=== PATIENT | female | born 1990 | race African-American/Black ===

== ENCOUNTER → 2016-12-26 | Outpatient (CLI) | payer BC, OTHER ==
--- NOTE | 2016-12-26 12:58 | US ---
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 Lump near umbilicus x 6 years. 6 years ago Findings: Complex cystic area mid abdominal wall near umbilicus = 2.5 x 1.2 x 2.2cm. No change or br eak in the abdominal wall with valsalva . Recommend CT for further evaluation. IMPRESSION: Nonspecific complex fluid near the umbilicus without definite hernia seen at this time. Consider contrast enhanced CT for further evaluation.
== END | disposition home or self-care (01) ==
LOC: RADUSWWP 12:28
PROVIDERS: ATTEND Family Medicine
DX: K46.9 Unspecified abdominal hernia without obstruction or gangrene (principal)
CPT/HCPCS: 76705

== ENCOUNTER 2018-07-30 21:33 | Emergency (ER) | payer BC, OTHER ==
[2018-07-30 22:08] LABS: Appearance,Urine Cloudy (Clear); Bilirubin,Urine Negative (Negative); Blood,Urine Negative (Negative); Color,Urine Yellow; Glucose,Urine (UA) Negative (Negative); Ketones,Urine Negative (Negative); Leukocyte Esterase,Urine Large (Negative); Mucus,Urine Many /hpf; Nitrite,Urine Negative (Negative); Protein,Urine 1+ (Negative); RBC,Urine 36 /hpf (0-5); Specific Gravity,Urine 1.025 (1.001-1.035); Squamous Epithelial Cell,Urine 16 /hpf (0-4); WBC,Urine 110 /hpf (0-5)
[2018-07-30] MEDS ORDERED: SULFAMETH-TMP DS STARTER PACK 2 TAB BTL PO STA (22:56)
--- NOTE | 2018-07-30 23:02 | ED ---
Female Urogenital HPI - General Chief complaint: Urogenital Stated complaint: Female Time Seen by Provider: 07/30/18 21:42 Source: patient Mode of arrival: ambulatory Limitations: no limitations - History of Present Illness Initial comments: 28-year-old female patient presents to the emergency department today for evaluation of vulvar itching. Patient states this has been going on for the last several days. Patient denies any lesions or wounds to the genitalia. Denies any abnormal vaginal discharge. She denies any hematuria, dysuria, urinary urgency. States she is having some urinary frequency. Denies any chance of . Denies any chance of STDs, states she is in a monogamous relationship. Denies any history of similar symptoms. Denies any recent antibiotic use. Patient denies any recent rash, fever, chills, shortness breath , chest pain, abdominal pain, nausea, vomiting, diarrhea, constipation, back pain, numbness, tingling, dizziness, weakness, headache, visual changes, or any other complaints. Last Menstrual Period: 07/02/18 - Related Data Previous Rx's Medication Instructions Recorded Sulfamethoxazole/Trimethoprim 1 each PO BID #14 tablet 07/30/18 [Bactrim DS 800-160 mg] metroNIDAZOLE [metroNIDAZOLE 0.75% 1 applic TOPICAL DAILY #25 gram 07/30/18 Gel] metroNIDAZOLE [Flagyl] 2,000 mg PO ONCE #4 tab 08/01/18 Allergies Allergy/AdvReac Type Severity Reaction Status Date / Time Unable to Assess Allergy Verified 07/30/18 21:40 Review of Systems ROS Statement: Those systems with pertinent positive or pertinent negative responses have been documented in the HPI. ROS Other: All systems not noted in ROS Statement are negative. Past Medical History Past Medical History: No Reported History History of Any Multi-Drug Resistant Organisms: None Reported Past Surgical History: Section, Hernia Repair Additional Past Surgical History / Comment(s): Fibroadenoma removed left axilla Past Psychological History: No Psychological Hx Reported Smoking Status: Current some day smoker Past Alcohol Use History: None Reported Past Drug Use History: None Reported General Exam Limitations: no limitations General appearance: alert, in no apparent distress, other (This is a well- developed, well-nourished adult female patient in no acute distress. Vital signs upon presentation are temperature 98.8F, pulse 115, respirations 20, blood pressure 122/71, pulse ox 96% on room air.) Eye exam: Present: normal appearance, PERRL, EOMI. Absent: scleral icterus, conjunctival injection, periorbital swelling ENT exam: Present: normal exam, normal oropharynx, mucous membranes moist Respiratory exam: Present: normal lung sounds bilaterally. Absent: respiratory distress, wheezes, rales, rhonchi, stridor Cardiovascular Exam: Present: regular rate, normal rhythm, normal heart sounds. Absent: systolic murmur, diastolic murmur, rubs, gallop, clicks GI/Abdominal exam: Present: soft, normal bowel sounds. Absent: distended, tenderness, guarding, rebound, rigid External exam: Present: normal external exam Speculum exam: Present: vaginal discharge (Thin white/fuchs vaginal discharge.). Absent: normal speculum exam By manual exam: Present: cervical motion tenderness. Absent: adnexal tenderness , adnexal mass Back exam: Present: normal inspection. Absent: CVA tenderness (R), CVA tenderness (L) Neurological exam: Present: alert, oriented X3, CN II-XII intact Psychiatric exam: Present: normal affect, normal mood Skin exam: Present: warm, dry, intact, normal color. Absent: rash Course Vital Signs 07/30/18 07/30/18 21:37 23:10 Temperature 98.8 F 98.4 F Pulse Rate 115 H 102 H Respiratory 20 18 Rate Blood Pressure 122/71 117/65 O2 Sat by Pulse 96 98 Oximetry Medical Decision Making - Medical Decision Making 28-year-old female patient presented to the emergency department today for evaluation of vulvar itching. Pelvic examination was performed and did reveal a thin/grayish white discharge. Symptoms seemed consistent with bacterial vaginosis that she was treated with MetroGel prescription. The patient also had evidence of urinary tract infection on urinalysis that she was treated for urinary tract infection with Bactrim. She is instructed to follow-up with gynecology for further evaluation. Return parameters discussed in detail. She verbalizes understanding and agrees with this plan. Labs reviewed on 08/01/2018 at 0542, did show positive trichomonas. Prescription for Flagyl was provided and will have follow-up nurse call. - Lab Data Lab Results 07/30/18 07/30/18 07/30/18 Range/Units 21:50 21:50 23:00 Urine Color Yellow Urine Appearance Cloudy H (Clear) Urine pH 6.0 (5.0-8.0) Ur Specific [place] 1.025 (1.001-1.035) Urine Protein 1+ H (Negative) Urine Glucose (UA) Negative (Negative) Urine Ketones Negative (Negative) Urine Blood Negative (Negative) Urine Nitrite Negative (Negative) Urine Bilirubin Negative (Negative) Urine Urobilinogen 2.0 (<2.0) mg/dL Ur Leukocyte Esterase Large H (Negative) Urine RBC 36 H (0-5) /hpf Urine WBC 110 H (0-5) /hpf Ur Squamous Epith Cells 16 H (0-4) /hpf Urine Mucus Many H (None) /hpf Urine HCG, Qual Not Detected (Not Detectd) Trichomonas Ag (Rapid) Positive H (Negative) Disposition Clinical Impression: Bacterial vaginosis, Urinary tract infection Disposition: HOME SELF-CARE Condition: Good Instructions: Bacterial Vaginosis (ED), Urinary Tract Infection in Women (ED) Additional Instructions: Take medications as directed. Follow up with primary care physician and OBGYN for further evaluation especially if your symptoms do not improve. Return here immediately for any new, worsening, or concerning symptoms. Prescriptions: metroNIDAZOLE [metroNIDAZOLE 0.75% Gel] 1 applic TOPICAL DAILY #25 gram Sulfamethoxazole/Trimethoprim [Bactrim DS 800-160 mg] 1 each PO BID #14 tablet Is patient prescribed a controlled substance at d/c from ED?: No Referrals: Leidy Lomax MD [Primary Care Provider] - 1-2 days Time of Disposition: 23:01
[2018-07-30 23:19] VITALS: BP 117/65; PULSE 102; RESP 18; TEMP 98.4
[2018-08-02 08:26] LABS: C. trachomatis,PCR Negative (Neg,Equiv); Chlamydia trachomatis Source Cervix; N. gonorrhoeae,PCR Negative (Neg,Equiv); Neisseria Source Cervix
== END 2018-07-30 23:10 | disposition home or self-care (01) ==
LOC: EC 21:33
DX: N39.0 Urinary tract infection, site not specified (principal); N76.0 Acute vaginitis; B96.89 Other specified bacterial agents as the cause of diseases classified elsewhere; A59.9 Trichomoniasis, unspecified; F17.200 Nicotine dependence, unspecified, uncomplicated
CPT/HCPCS: 81001; 81025; 87491; 87591; 87808; 99283

== ENCOUNTER 2018-08-17 21:58 | Emergency (ER) | payer OTHER ==
[2018-08-17 22:11] VITALS: TEMP 98.4
--- NOTE | 2018-08-17 22:24 | ED ---
Female Urogenital HPI - General Chief complaint: Urogenital Stated complaint: Urogenital Time Seen by Provider: 08/17/18 22:14 Source: patient, family Mode of arrival: ambulatory Limitations: no limitations - History of Present Illness Initial comments: 78-year-old female presenting with vaginal itching and discharge. Patient states she was seen in the emergency department 2 weeks ago and was diagnosed with Trichomonas and treated. She states she was asymptomatic up until Saturday when her symptoms return. States she has not been sexually active since she was diagnosed. She denies any dysuria, hematuria, fevers chills, abdominal pain. - Related Data Previous Rx's Medication Instructions Recorded Fluconazole [Diflucan] 150 mg PO ONCE #1 tab 08/17/18 Nitrofurantoin Monohyd/M-Cryst 100 mg PO Q12HR 5 Days #10 cap 08/17/18 [Macrobid] metroNIDAZOLE [Flagyl] 500 mg PO BID 7 Days #14 tab 08/17/18 Allergies Allergy/AdvReac Type Severity Reaction Status Date / Time No Known Allergies Allergy Verified 08/17/18 22:11 Review of Systems ROS Statement: Those systems with pertinent positive or pertinent negative responses have been documented in the HPI. Review of Systems Constitutional: Denies fever, chills Eyes: Denies change in vision, Denies pain Ears, nose, mouth, throat: Denies headaches, Denies sore throat Cardiovascular: Denies chest pain. Denies palpitations Respiratory: Denies shortness of breath, Denies cough Gastrointestinal: Denies abdominal pain. Denies nausea, vomiting, diarrhea. Genitourinary: Denies hematuria, positive discharge and vaginal itching. Musculoskeletal: Denies pain, Denies swelling Integumentary: Denies rash Neurological: Denies headache, focal weakness, focal numbness Psychiatric: Denies anxiety, Denies depression Hematologic/Lymphatic: Denies easy bleeding or bruising ROS Other: All systems not noted in ROS Statement are negative. Past Medical History Past Medical History: No Reported History Additional Past Medical History / Comment(s): "trichomonas" History of Any Multi-Drug Resistant Organisms: None Reported Past Surgical History: Section, Hernia Repair Additional Past Surgical History / Comment(s): Fibroadenoma removed left axilla Past Psychological History: No Psychological Hx Reported Smoking Status: Current some day smoker Past Alcohol Use History: None Reported Past Drug Use History: None Reported General Exam - General Exam Comments Initial Comments: General: Awake, alert, No acute Distress HENT: Normocephalic. Atraumatic Eyes: PERRL. EOMI. No scleral icterus. No injected conjunctiva Neck: Full ROM Chest/Lungs: Clear to auscultation bilaterally. No wheezing, rhonchi, or rales Cardiac: Regular rate, rhythm. No murmurs or rubs Abdomen/GI: [Soft, nontender, nondistended. No rebound, guarding, or rigidity. : White vaginal discharge. No CMT. No genital lesions. No masses. Musculoskeletal: Full ROM Skin: Warm, dry, intact Neurologic: A/Ox3, no weakness, no sensory deficit, no abnormal gait, no coordination deficit Limitations: no limitations Course Vital Signs 08/17/18 22:06 Temperature 98.4 F Pulse Rate 89 Respiratory 20 Rate Blood Pressure 108/70 O2 Sat by Pulse 99 Oximetry Medical Decision Making - Medical Decision Making 28-year-old female presenting with vaginal discharge. Initial exam the patient is awake, alert, no acute distress. VSS. Patient's previous laboratory workup is positive for Trichomonas. She was treated with 500 mg of Flagyl. Today the patient's workup is positive for Trichomonas and a UTI. She was not tested for G /C as she has not been sexually active since her previous testing. She was given a dose of Diflucan, Flagyl, Macrobid. The patient denied any recent sexual activity or the use of any sex toys. Patient was instructed to abstain from sexual intercourse. She will be discharged home on those medications. - Lab Data Lab Results 08/17/18 08/17/18 08/17/18 Range/Units 22:45 22:46 22:46 Urine Color Yellow Urine Appearance Clear (Clear) Urine pH 5.5 (5.0-8.0) Ur Specific [place] 1.027 (1.001-1.035) Urine Protein Trace H (Negative) Urine Glucose (UA) Negative (Negative) Urine Ketones Negative (Negative) Urine Blood Negative (Negative) Urine Nitrite Negative (Negative) Urine Bilirubin Negative (Negative) Urine Urobilinogen 2.0 (<2.0) mg/dL Ur Leukocyte Esterase Large H (Negative) Urine RBC 16 H (0-5) /hpf Urine WBC 14 H (0-5) /hpf Ur Squamous Epith Cells 2 (0-4) /hpf Urine Mucus Moderate H (None) /hpf Urine HCG, Qual Not Detected (Not Detectd) Trichomonas Ag (Rapid) Positive H (Negative) Disposition Clinical Impression: Trichomoniasis, UTI (urinary tract infection), Vaginal Discharge Disposition: HOME SELF-CARE Condition: Good Instructions: Urinary Tract Infection in Women (ED), Trichomoniasis (ED), Yeast Infection (ED) Additional Instructions: Do not drink alcohol while taking Flagyl. ER if you develop fever, nausea vomiting, or severe abdominal pain. Abstain from sexual intercourse. Prescriptions: Fluconazole [Diflucan] 150 mg PO ONCE #1 tab metroNIDAZOLE [Flagyl] 500 mg PO BID 7 Days #14 tab Nitrofurantoin Monohyd/M-Cryst [Macrobid] 100 mg PO Q12HR 5 Days #10 cap Is patient prescribed a controlled substance at d/c from ED?: No Referrals: Leidy Lomax MD [Primary Care Provider] - 1-2 days
[2018-08-17] MEDS ORDERED: FLUCONAZOLE 150 MG TAB PO STA (22:46)
[2018-08-17 23:09] LABS: Appearance,Urine Clear (Clear); Bilirubin,Urine Negative (Negative); Blood,Urine Negative (Negative); Color,Urine Yellow; Glucose,Urine (UA) Negative (Negative); Ketones,Urine Negative (Negative); Leukocyte Esterase,Urine Large (Negative); Mucus,Urine Moderate /hpf; Nitrite,Urine Negative (Negative); PH, Urine 5.5 (5.0-8.0); Protein,Urine Trace (Negative); RBC,Urine 16 /hpf (0-5); Specific Gravity,Urine 1.027 (1.001-1.035); Squamous Epithelial Cell,Urine 2 /hpf (0-4); WBC,Urine 14 /hpf (0-5)
[2018-08-17] MEDS ORDERED: NITROFURANTOIN MONOHYD/M-CRYST 100 MG CAP PO STA (23:42)
[2018-08-17] MEDS ORDERED: metroNIDAZOLE 500 MG TAB PO STA (23:42)
[2018-08-18 00:18] VITALS: BP 100/55; PULSE 76; RESP 18
== END 2018-08-18 00:17 | disposition home or self-care (01) ==
LOC: EC 21:58
DX: A59.9 Trichomoniasis, unspecified (principal); N39.0 Urinary tract infection, site not specified; N89.8 Other specified noninflammatory disorders of vagina; F17.200 Nicotine dependence, unspecified, uncomplicated; Z32.02 Encounter for pregnancy test, result negative
CPT/HCPCS: 81001; 81025; 87070; 87205; 87808; 99283

== ENCOUNTER 2018-09-24 21:44 | Emergency (ER) | payer OTHER ==
[2018-09-25] MEDS ORDERED: LIDOCAINE 1% INJ 10MG/ML (20 ML MDV) SQ ONE (00:06)
--- NOTE | 2018-09-25 00:38 | ED ---
General Adult HPI - General Chief complaint: Skin/Abscess/Foreign Body Stated complaint: Constipated Time Seen by Provider: 09/24/18 22:42 Source: patient, RN notes reviewed Mode of arrival: ambulatory Limitations: no limitations - History of Present Illness Initial comments: 28-year-old female presents to the emergency determine for a chief complaint of pain in the vagina x one day. Patient states this started yesterday. Patient states she has noticed some drainage from the area. Patient states it is very painful to sit. She denies fevers or chills at home. She states this has never happened before. Patient has no other complaints at this time including shortness of breath, chest pain, abdominal pain, nausea or vomiting, headache, or visual changes. - Related Data Previous Rx's Medication Instructions Recorded Cefixime [Suprax] 400 mg PO DAILY #7 cap 09/25/18 Clindamycin HCl 300 mg PO Q6H 10 Days cap 09/25/18 Allergies Allergy/AdvReac Type Severity Reaction Status Date / Time No Known Allergies Allergy Verified 09/24/18 22:30 Review of Systems ROS Statement: Those systems with pertinent positive or pertinent negative responses have been documented in the HPI. ROS Other: All systems not noted in ROS Statement are negative. Past Medical History Past Medical History: No Reported History Additional Past Medical History / Comment(s): "trichomonas" History of Any Multi-Drug Resistant Organisms: None Reported Past Surgical History: Section, Hernia Repair Additional Past Surgical History / Comment(s): Fibroadenoma removed left axilla Past Psychological History: No Psychological Hx Reported Smoking Status: Current every day smoker Past Alcohol Use History: Occasional Past Drug Use History: Marijuana General Exam Limitations: no limitations General appearance: alert, in no apparent distress Head exam: Present: atraumatic, normocephalic, normal inspection Eye exam: Present: normal appearance, PERRL, EOMI. Absent: scleral icterus, conjunctival injection, periorbital swelling ENT exam: Present: normal exam, mucous membranes moist Neck exam: Present: normal inspection, full ROM. Absent: tenderness, meningismus, lymphadenopathy Respiratory exam: Present: normal lung sounds bilaterally. Absent: respiratory distress, wheezes, rales, rhonchi, stridor Cardiovascular Exam: Present: regular rate, normal rhythm, normal heart sounds. Absent: systolic murmur, diastolic murmur, rubs, gallop, clicks GI/Abdominal exam: Present: soft, normal bowel sounds. Absent: distended, tenderness, guarding, rebound, rigid External exam: Present: other (She has abscess noted to the right labia around introitus likely Bartholin's gland cyst. Abscess is fluctuant. no drainage noted at this time.) Course Vital Signs 09/24/18 21:59 Temperature 98 F Pulse Rate 79 Respiratory 18 Rate Blood Pressure 112/69 O2 Sat by Pulse 100 Oximetry Procedures - Incision & Drainage Consent Obtained: verbal consent Time Out Performed?: Yes Site: vulva/vagina Size (cm): 2 Anesthetic Used: lidocaine 1% Amount (mLs): 1 I&D Cleaning Method: Betadine Sterile Field Used?: Yes Scalpel Used: #11 I&D Drainage Obtained: Pus Culture Obtained?: No Patient Tolerated Procedure: well, no complications Medical Decision Making - Medical Decision Making 28-year-old female presents with a Bartholin's cyst. This has been since yesterday. No fevers or chills. On exam there is abscess noted on the right labia near introitus. This was incised and drained and purulent material was expelled. No crepitations. Patient was given appropriate antibiotic therapy. She was educated to follow-up with [facility] tomorrow and to take warm baths. She was educated to return to the emergency Department if she has any worsening symptoms. Disposition Clinical Impression: Bartholin cyst Disposition: HOME SELF-CARE Condition: Good Instructions: Bartholin Cyst (ED), Incision and Drainage (ED) Additional Instructions: Take antibiotic as directed. Please take Motrin and Tylenol for pain. Please follow-up with the [facility] tomorrow. Please return immediately to the emergency department if you have any worsening symptoms. Prescriptions: Cefixime [Suprax] 400 mg PO DAILY #7 cap Clindamycin HCl 300 mg PO Q6H 10 Days cap Is patient prescribed a controlled substance at d/c from ED?: No Referrals: Leidy Lomax MD [Primary Care Provider] - 1-2 days Paolo Lynne DO [Doctor of Osteopathic Medicine] - 1-2 days Time of Disposition: 00:35
[2018-09-25 01:12] VITALS: BP 116/69; PULSE 75; RESP 16; TEMP 98.5
== END 2018-09-25 01:14 | disposition home or self-care (01) ==
LOC: EC 21:44
DX: N75.0 Cyst of Bartholin's gland (principal); F17.200 Nicotine dependence, unspecified, uncomplicated
CPT/HCPCS: 56420; 99283

== ENCOUNTER → 2019-02-11 | Outpatient (CLI) | payer OTHER ==
--- NOTE | 2019-02-11 14:55 | US ---
EXAMINATION TYPE: Transabdominal DATE OF EXAM: 02/11/2019 2:27 PM COMPARISON: NONE CLINICAL HISTORY: Z36 Confirm dates. Confirm dates, 2, para 1, history of EXAM PERFORMED: Transabdominal (TA) EXAM MEASUREMENTS: GESTATIONAL AGE / DATING Physician Established: (8 weeks/1 days) EDC: 09/22/2019 Dates by LMP: (8 weeks/1 days) EDC: 09/22/2019 Dates by First Scan: This is 1st scan Dates by Current Scan for: (8 weeks/6 days) EDC: 09/17/2019 MATERNAL ANATOMY Uterus: 10.7 x 8.0 x 8.1cm, anteverted Right Ovary: 2.7 x 1.7 x 1.8cm Left Ovary: 3.4 x 2.3 x 3.0cm Post CDS / Adnexa: small amount of free fluid within posterior cul de sac Presence of free fluid: yes Presence of corpus luteal cyst: left ovary: 2.1 x 1.7 x 2.0cm hypoechoic cystic area Presence of subchorionic bleed: no GESTATION / SURVEY CRL: 2.2cm (8 weeks/6 days) Yolk Sac (normal less than 6mm): 4.5mm Heart Rate: 178 bpm Rhythm: Normal IUP: Viable IUP Date of LMP: 12/16/2018 Viable single IUP measuring 8 weeks 6 days with heart rate of 178bpm and estimated delivery date of 1 . IMPRESSION: Single live intrauterine with a calculated sonographic age of 8 weeks and 6 days. Estimated date of delivery of 09/17/2019.
== END ==
LOC: RADUSWWP 14:08
PROVIDERS: ATTEND Obstetrics & Gynecology
DX: Z36.89 Encounter for other specified antenatal screening (principal); Z3A.08 8 weeks gestation of pregnancy
CPT/HCPCS: 76801

== ENCOUNTER 2019-06-12 21:25 | Outpatient (CLI) | payer OTHER ==
[2019-06-12 21:43] VITALS: BP 124/71; PULSE 89; RESP 15; TEMP 97.1
--- NOTE | 2019-06-16 12:37 | P.MSEPDOC ---
Presenting Problems - Arrival Data Date of Arrival on Unit: 06/12/19 Time of Arrival on Unit: 21:25 Mode of Transport: Ambulatory - Complaint OB-Reason for Admission/Chief Complaint: Other Comment: vaginal pain and pressure for the past week Medical History - Information : 2 Para: 1 Term: 1 : 0 Abortions: Spontaneous or Elective: 0 Number of Living Children: 1 - Gestational Age Gestational Age by VOLODYMYR (wks/days): 25 Weeks and 6 Days - History Complications: Prior Review of Systems - Review of Systems Constitutional: No problems Breast: No problems ENT: No problems Cardiovascular: No problems Respiratory: No problems Gastrointestinal: No problems Genitourinary: No problems Musculoskeletal: No problems Neurological: No problems Skin: No problems Vital Signs - Temperature Temperature: 97.1 F Temperature Source: Temporal Artery Scan - Pulse Pulse Oximetery Pulse Rate: 89 Pulse Assessment Method: Pulse Oximetry - Respirations Respiratory Rate: 15 Oxygen Delivery Method: Room Air - Blood Pressure Right Arm Blood Pressure: 124/71 Blood Pressure Mean: 88 Blood Pressure Source: Automatic Cuff Medical Screen Scoring (Pre) - Cervical Exam Dilation: 0 cm = 0 Membranes: Intact - Uterine Contractions Frequency: N/A Duration: N/A Intensity: N/A - Maternal Vital Signs Maternal Temperature: N/A Maternal Blood Pressure: N/A Signs of Preeclampsia: N/A Maternal Respirations: N/A - Maternal Trauma Maternal Trauma: N/A - Assessment - Baby A Baseline FHR: 145 Heart Rate - NICHD Category: Category I (Normal) = 0 Position: N/A Station: N/A - Total Score - Baby A Total Score - Baby A: 0 - Total Score - Baby B Total Score - Baby B: 0 - Total Score - Baby C Total Score - Baby C: 0 - Level of Risk - Baby A Level of Risk - Baby A: Low (0-5) - Level of Risk - Baby B Level of Risk - Baby B: Low (0-5) - Level of Risk - Baby C Level of Risk - Baby C: Low (0-5) - Pain Assessment Pain Location and Character: Pelvic Pain Scale Used: Numeric (1 - 10) Pain Intensity: 8 Pain Management Goal: 2 Pain Description: *Acute, Pressure Pain Radiation Location: none Pain Frequency: Constant Pain Duration: 1 Pain Duration Units: week Pain Behavior: Anxious Pain Aggravating Factors: None Physician Notification (Pre) - Physician Notified Physician Notified Date: 06/12/19 Physician Notified Time: 21:47 Physician/Practitioner Notifed:: Dr. Christianson Spoke With: Dr. Christianson New Order Received: Yes - Notification Comment Comment: discharge pt home, follow up at next scheduled appt on June 22 Disposition - Disposition OB Disposition: Triage, Discharge to home, Written follow up instructions dia powers Discharge Date: 06/12/19 Discharge Time: 22:00 I agree with the RN Medical Screening Exam: Yes Risk & Benefit of care provided described in d/c instruction: Yes Diagnosis: FALSE LABOR BEFORE 37 COMPLETED WEEKS OF GEST, SECOND TRI
== END 2019-06-12 22:00 | disposition home or self-care (01) ==
LOC: FBPOP 21:25
PROVIDERS: ATTEND Obstetrics & Gynecology
DX: O47.03 False labor before 37 completed weeks of gestation, third trimester (principal); Z3A.25 25 weeks gestation of pregnancy
CPT/HCPCS: 99213

== ENCOUNTER 2019-07-07 18:23 | Outpatient (CLI) | payer OTHER ==
[2019-07-07] MEDS ORDERED: LACTATED RINGERS 1,000 ML IV SCH (19:15)
[2019-07-07 19:35] VITALS: BP 109/63; PULSE 80; RESP 18; TEMP 97.5
[2019-07-07 19:48] LABS: Basophils % (A) 0 %; Eosinophils # (A) 0.2 k/uL (0-0.7); Eosinophils % (A) 3 %; HCT 38.6 % (34.0-46.0); HGB 12.8 gm/dL (11.4-16.0); Lymphocytes # (A) 1.9 k/uL (1.0-4.8); Lymphocytes % (A) 24 %; MCH 30.7 pg (25.0-35.0); MCHC 33.3 g/dL (31.0-37.0); MCV 92.4 fL (80.0-100.0); Mean Platelet Volume 7.2; Monocytes # (A) 0.6 k/uL (0-1.0); Monocytes % (A) 7 %; Neutrophils # (A) 5.2 k/uL (1.3-7.7); Neutrophils % (A) 64 %; Platelet Count 227 k/uL (150-450); RBC 4.18 m/uL (3.80-5.40); RDW 14.7 % (11.5-15.5); WBC 8.1 k/uL (3.8-10.6)
[2019-07-07 20:07] LABS: Amphetamine Screen,Urine Not Detected (NotDetected); Barbiturate Screen,Urine Not Detected (NotDetected); Benzodiazepines Screen,Urine Not Detected (NotDetected); Cocaine Screen,Urine Not Detected (NotDetected); Methadone Screen, Urine Not Detected (NotDetected); Opiate Screen,Urine Not Detected (NotDetected); Oxycodone Screen, Urine Not Detected (NotDetected); Phencyclidine Screen,Urine Not Detected (NotDetected); Tricyclic Antidepressant,Urine Not Detected (NotDetected); Urn Cannabinoid Scrn Not Detected (NotDetected)
--- NOTE | 2019-07-07 21:07 | P.MSEPDOC ---
Presenting Problems - Arrival Data Date of Arrival on Unit: 07/07/19 Time of Arrival on Unit: 18:20 Mode of Transport: Ambulatory - Complaint OB-Reason for Admission/Chief Complaint: Pain Comment: prev c/s. 29 4/7 wks. lower abd pains and pressure onset last night. 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 Medical History - Information : 2 Para: 1 Term: 1 : 0 Abortions: Spontaneous or Elective: 0 Number of Living Children: 1 - Gestational Age Gestational Age by VOLODYMYR (wks/days): 29 Weeks and 3 Days - History Complications: Prior Review of Systems - Review of Systems Constitutional: No problems Breast: No problems ENT: No problems Cardiovascular: No problems Respiratory: No problems Gastrointestinal: No problems Genitourinary: No problems Musculoskeletal: No problems Neurological: No problems Skin: No problems Vital Signs - Temperature Temperature: 97.5 F Temperature Source: Oral - Pulse Right Brachial Pulse Rate: 80 Pulse Assessment Method: Automatic Cuff - Respirations Respiratory Rate: 18 Oxygen Delivery Method: Room Air O2 Sat by Pulse Oximetry: 98 - Blood Pressure Right Arm Blood Pressure: 109/63 Blood Pressure Mean: 78 Blood Pressure Source: Automatic Cuff Medical Screen Scoring (Pre) - Cervical Exam Dilation: 0 cm = 0 Membranes: Intact - Uterine Contractions Frequency: N/A Duration: N/A Intensity: N/A - Maternal Vital Signs Maternal Temperature: N/A Maternal Blood Pressure: N/A Signs of Preeclampsia: N/A Maternal Respirations: N/A - Maternal Trauma Maternal Trauma: N/A - Assessment - Baby A Baseline FHR: 145 NST: Reactive Position: N/A Station: N/A - Total Score - Baby A Total Score - Baby A: 0 - Total Score - Baby B Total Score - Baby B: 0 - Total Score - Baby C Total Score - Baby C: 0 - Level of Risk - Baby A Level of Risk - Baby A: Medium (6-9) - Level of Risk - Baby B Level of Risk - Baby B: Low (0-5) - Level of Risk - Baby C Level of Risk - Baby C: Low (0-5) Physician Notification (Pre) - Physician Notified Physician Notified Date: 07/07/19 Physician Notified Time: 19:10 Spoke With: kiersten New Order Received: Yes - Notification Comment Comment: report to dr burch. orders received Disposition - Disposition OB Disposition: Observe I agree with the RN Medical Screening Exam: Yes Risk & Benefit of care provided described in d/c instruction: Yes Diagnosis: FALSE LABOR BEFORE 37 COMPLETED WEEKS OF GEST, THIRD TRI (Pt presents with chronic pelvic pain/pressure. Cx closed /th. FHTs with a spontaneous decel to 90's for ~30sec with good variability. Prolonged monitoring (~2hr) shows no further decels. CBC normal. No evidemce of maternal or compromise. Discharged home to f/u with Dr. Lynne. )
== END 2019-07-07 20:50 | disposition home or self-care (01) ==
LOC: FBPOP 18:23
PROVIDERS: ATTEND Obstetrics & Gynecology
DX: O47.03 False labor before 37 completed weeks of gestation, third trimester (principal); Z3A.29 29 weeks gestation of pregnancy
CPT/HCPCS: 59025; 96365; 85025; 80306; G0463; 99214

== ENCOUNTER 2019-09-16 08:00 | Inpatient (IN) | payer OTHER ==
[2019-09-15 14:12] VITALS: BMI 35.2
[2019-09-16] MEDS ORDERED: LACTATED RINGERS 1,000 ML IV ONE (10:16)
[2019-09-16] MEDS ORDERED: CITRIC ACID-SODIUM CITRATE 15 ML CUP PO ONE (10:16)
[2019-09-16 10:48] LABS: Basophils % (A) 0 %; Eosinophils # (A) 0.1 k/uL (0-0.7); Eosinophils % (A) 1 %; HCT 41.1 % (34.0-46.0); HGB 13.6 gm/dL (11.4-16.0); Lymphocytes # (A) 1.4 k/uL (1.0-4.8); Lymphocytes % (A) 17 %; MCH 30.4 pg (25.0-35.0); MCHC 33.1 g/dL (31.0-37.0); Monocytes # (A) 0.5 k/uL (0-1.0); Monocytes % (A) 6 %; Neutrophils # (A) 6.1 k/uL (1.3-7.7); Neutrophils % (A) 74 %; Platelet Count 215 k/uL (150-450); RBC 4.47 m/uL (3.80-5.40); RDW 14.1 % (11.5-15.5); WBC 8.3 k/uL (3.8-10.6)
[2019-09-16] MEDS: LACTATED RINGERS 1,000 ML IV SCH ×2 (10:55→17:06)
[2019-09-16] MEDS ORDERED: OXYTOCIN 10 UNIT/ML 1 ML VIAL ONE (12:09)
[2019-09-16] MEDS ORDERED: MORPHINE SULFATE (PF) 0.3 MG/0.3 ML SYR ONE (12:09)
[2019-09-16] MEDS ORDERED: KETOROLAC 30 MG/ML 1 ML VIAL ONE (12:09)
[2019-09-16] MEDS ORDERED: ONDANSETRON 4 MG/2 ML VIAL ONE (12:09)
[2019-09-16] MEDS ORDERED: SUCCINYLCHOLINE CHLORIDE 100 MG/5 ML SYR IV ONE (12:09)
[2019-09-16] MEDS ORDERED: PROPOFOL 10 MG/ML 20 ML VIAL IV ONE (12:09)
[2019-09-16] MEDS ORDERED: fentaNYL (PF) 50 MCG/ML 2 ML AMP ONE (12:09)
[2019-09-16] MEDS ORDERED: ePHEDrine SULFATE/0.9% NACL/PF 50 MG/5 ML SYRINGE IV ONE (12:09)
[2019-09-16] MEDS ORDERED: KETOROLAC 30 MG/ML 1 ML VIAL IVP PRN (12:56)
[2019-09-16] MEDS ORDERED: NALOXONE 0.4 MG/ML 1 ML VIAL IV PRN ×2 (12:56→13:08)
[2019-09-16] MEDS ORDERED: HYDROmorphone 0.5 MG/0.5 ML SYRINGE IVP PRN (12:56)
[2019-09-16] MEDS ORDERED: ONDANSETRON 4 MG/2 ML VIAL IVP PRN (13:08)
[2019-09-16] MEDS ORDERED: diphenhydrAMINE 50 MG/ML 1 ML VIAL IVP PRN ×2 (13:08)
[2019-09-16] MEDS ORDERED: diphenhydrAMINE 25 MG CAP PO PRN (13:08)
[2019-09-16] MEDS ORDERED: ZOLPIDEM 5 MG TAB PO PRN (13:08)
[2019-09-16] MEDS ORDERED: ACETAMINOPHEN TAB 325 MG TAB PO PRN (13:08)
[2019-09-16] MEDS ORDERED: diphenhydrAMINE 50 MG CAP PO PRN (13:08)
[2019-09-16] MEDS ORDERED: METOCLOPRAMIDE 5 MG/ML 2 ML VIAL IVP PRN (13:08)
--- NOTE | 2019-09-16 13:12 | P.HPOB ---
History of Present Illness H&P Date: 09/16/19 Chief Complaint: Intrauterine term: Previous section: Jay lopez's cyst Patient is a 21-year-old at 39 weeks 4 days gestation who arrives for repeat section. She had initially wanted to try and however, as her cervix did not dilate she opted to instead have a repeat section. Risks/benefits/alternatives were reviewed with the patient in detail and all questions were answered for her prior to proceeding to the operative room. She is also noted to have approximately 3-4 cm Bartholin cyst on the right labia which we'll try and drain. She is listed as having a latex ALLERGY, however we did have were catheter in approximately a month and half ago and she had no symptoms or problems with it. If she begins to have symptoms or itching or other issues or remove it immediately and Benadryl has been ordered when necessary. A category 1 tracing is noted prior to her seem to the operative room. Past Medical History Past Medical History: No Reported History Additional Past Medical History / Comment(s): "trichomonas" History of Any Multi-Drug Resistant Organisms: None Reported Past Surgical History: Section, Hernia Repair Additional Past Surgical History / Comment(s): Fibroadenoma removed left axilla Past Anesthesia/Blood Transfusion Reactions: No Reported Reaction Additional Past Anesthesia/Blood Transfusion Reaction / Comment(s): no hx blood transfusion Past Psychological History: No Psychological Hx Reported Smoking Status: Never smoker Past Alcohol Use History: None Reported Past Drug Use History: None Reported - Past Family History Mother Family Medical History: No Reported History Medications and Allergies Home Medications Medication Instructions Recorded Confirmed Type Pnv,Calcium 72/Iron/Folic Acid 1 tab PO DAILY 06/12/19 09/16/19 History [ Plus Tablet] Allergies Allergy/AdvReac Type Severity Reaction Status Date / Time adhesive tape Allergy rash/hives,states Verified 09/16/19 10:16 "paper tape is ok" latex Allergy Rash/Hives Verified 09/16/19 10:16 Exam Osteopathic Statement: *. No significant issues noted on an osteopathic structural exam other than those noted in the History and Physical/Consult. Vital Signs Temp Pulse Resp BP 09/16/19 10:34 97 F L 88 16 119/66 - OBG Physical Exam Breast: both: normal (no masses) Abdomen: bowel sounds normal, no diffuse tenderness, no bruit present, no guarding noted, no hepatomegaly, no splenomegaly, no mass Vulva: both: normal Vagina: Right labial Bartholin's Vagina: normal moisture, no discharge Cervix: no lesion, no discharge Uterus: normal size, normal contour Adnexa: both: normal Anus/Rectum: normal perianal skin, no rectal mass, no hemorrhoids, heme negative Results Result Diagrams: 09/16/19 10:10
--- NOTE | 2019-09-16 13:16 | P.OP ---
Date of Procedure: 09/16/19 Preoperative Diagnosis: Intrauterine at term: Repeat section: Bartholin's cyst Postoperative Diagnosis: Same Procedure(s) Performed: Repeat low transverse section with I&D of Bartholin's cyst Anesthesia: addi MCKENZIE Surgeon: Paolo Lynne Tailings Man #1: Kaushik Murphy Estimated Blood Loss (ml): 600 IV fluids (ml): 100 Urine output (ml): 1,000 Pathology: none sent Condition: stable Disposition: floor Operative Findings: Male scores and are pending but weight was 7 lbs. 12 oz. baby is doing well post operatively. Right labial Bartholin's cyst drained without difficulty Description of Procedure: Patient was taken to the operative suite where a spinal anesthetic was found to be inadequate, therefore she was placed under general anesthetic. Once asleep following being prepped and draped in the usual fashion a Pfannenstiel skin incision was made and through to underlying layer of the fascia. Fascia was then nicked in the midline and this opening was extended with Rivera scissors. Superior and inferior aspect of this incision were then grasped tented up and bluntly and sharply dissected off the rectus muscles. Rectus muscles were then divided in the midline and blunt dissection the peritoneum was made. This opening was then extended superiorly and inferiorly with good visualization of both bowel bladder. Bladder blade was then placed and the bladder flap identified. It was entered with Metzenbaum scissors and carried across face uterus but sponsors her bladder flap being digitally created. Knife was then used to incise uterus this opening was then extended bluntly with clear fluid noted. Head was then H medically delivered followed by anterior posterior shoulders with gentle downward and upward traction. Once this was completed mouth nares were bulb suctioned and baby was given to nursery personnel where the umbilical cord was clamped cut usual fashion. Placenta was then delivered intact and Pitocin was added to the IV. Uterus was then exteriorized cleared of clots debris and closed in 2 layers with 0 Vicryl suture. Once excellent hemostasis was obtained blood and debris was suctioned from the posterior cul-de-sac and uterus was reinserted into the abdomen. Gutters were then cleared of blood and debris and reinspection of the incision revealed hemostasis. Peritoneal layer was then reapproximate with 0 Vicryl suture. Fascial layer was closed with 0 Vicryl suture. One layer of 3-0 Vicryl was placed in deep subcuticular tissues to reapproximate the skin and close the space. Skin was then closed with 3-0 Vicryl subcuticular. Once this was completed inspection of the Bartholin's revealed a approximately 3-4 cm Bartholin's gland the right labia a stab incision was then made with a clean scalpel and a Word catheter was placed underneath the skin. It is also noted again that while she has a latex ALLERGY she had a Word catheter in several weeks ago and did not have any complications or issues from it. We'll rapidly remove should she begin having any symptoms at all. Once completed sponge, lap, needle counts were all correct 2. Patient was then taken to the recovery room in stable and satisfactory condition.
[2019-09-16] MEDS: SENNOSIDES-DOCUSATE SODIUM 1 EACH TAB PO SCH (19:59)
[2019-09-17] MEDS: LACTATED RINGERS 1,000 ML IV SCH (00:50)
[2019-09-17 07:10] LABS: Basophils % (A) 0 %; Eosinophils # (A) 0.2 k/uL (0-0.7); Eosinophils % (A) 2 %; HCT 34.3 % (34.0-46.0); HGB 11.6 gm/dL (11.4-16.0); Lymphocytes # (A) 1.4 k/uL (1.0-4.8); Lymphocytes % (A) 13 %; MCHC 33.7 g/dL (31.0-37.0); Mean Platelet Volume 6.6; Monocytes # (A) 0.6 k/uL (0-1.0); Monocytes % (A) 5 %; Neutrophils # (A) 8.6 k/uL (1.3-7.7); Neutrophils % (A) 78 %; Platelet Count 182 k/uL (150-450); RBC 3.73 m/uL (3.80-5.40); RDW 13.8 % (11.5-15.5)
[2019-09-17] MEDS: SENNOSIDES-DOCUSATE SODIUM 1 EACH TAB PO SCH ×2 (09:14→19:51)
[2019-09-17] MEDS: IBUPROFEN 600 MG TAB PO PRN ×2 (11:37→19:51)
--- NOTE | 2019-09-17 13:32 | P.PNOBGPC ---
Subjective - Subjective Principal diagnosis: Post op day 1 Interval history: doing very well. voices no complaints. continue current care Patient reports: Reports appetite normal, Reports voiding normally, Reports pain well controlled, Reports ambulating normally [place]: doing well Objective - Vital Signs Latest vital signs: Vital Signs Temp Pulse Resp BP Pulse Ox 09/17/19 11:00 18 09/17/19 09:00 18 09/17/19 08:00 98.2 F 108 H 18 112/57 09/17/19 05:00 12 97 09/17/19 03:43 98.8 F 93 12 117/65 97 09/17/19 03:00 12 09/17/19 01:00 12 97 09/17/19 00:00 98.5 F 90 12 120/67 97 09/16/19 23:00 12 09/16/19 21:00 14 09/16/19 20:23 97 09/16/19 20:00 90 14 120/71 97 09/16/19 19:00 14 09/16/19 17:00 18 09/16/19 15:56 18 09/16/19 15:27 99.3 F 83 18 107/65 09/16/19 14:57 98.1 F 90 16 115/68 96 09/16/19 14:27 98 F 87 16 112/70 98 09/16/19 14:12 98.1 F 97 16 94/64 97 09/16/19 13:57 98 F 99 16 101/65 97 09/16/19 13:56 16 97 09/16/19 13:42 98.1 F 96 16 101/54 96 Intake and Output 09/16/19 09/17/19 09/17/19 22:59 06:59 14:59 Output Total 700 650 Balance -700 -650 Output: Urine 700 650 Uretheral ([place]) 250 Other: # Voids 0 - Exam Lungs: bilateral: normal Chest: Normal S1, Normal S2 Extremities: Present: normal Abdomen: Present: normal appearance, soft. Absent: distention, tenderness Incision: Present: normal, dry, intact Uterus: Present: normal, firm - Labs Labs: Abnormal Lab Results - Last 24 Hours (Table) 09/17/19 Range/Units 06:49 WBC 11.0 H (3.8-10.6) k/uL RBC 3.73 L (3.80-5.40) m/uL Neutrophils # 8.6 H (1.3-7.7) k/uL
[2019-09-17] MEDS: HYDROcodone/APAP 7.5-325MG 1 EACH TAB PO PRN ×2 (16:50→23:13)
[2019-09-18] MEDS: IBUPROFEN 600 MG TAB PO PRN ×3 (02:39→17:42)
[2019-09-18] MEDS: LACTATED RINGERS 1,000 ML IV SCH ×3 (03:17→20:28)
[2019-09-18] MEDS: HYDROcodone/APAP 7.5-325MG 1 EACH TAB PO PRN ×3 (05:59→22:22)
[2019-09-18] MEDS: SENNOSIDES-DOCUSATE SODIUM 1 EACH TAB PO SCH ×2 (08:30→20:27)
--- NOTE | 2019-09-18 09:03 | P.PNOBGPC ---
Subjective - Subjective Principal diagnosis: Postop day 2 Interval history: Doing very well. Voices no complaints morning Patient reports: Reports appetite normal, Reports voiding normally, Reports pain well controlled, Reports ambulating normally : doing well Objective - Vital Signs Latest vital signs: Vital Signs Temp Pulse Resp BP Pulse Ox 09/17/19 23:57 98.1 F 132 H 36 H 09/17/19 16:05 98.6 F 89 15 105/61 97 09/17/19 13:00 98.4 F 98 18 118/67 09/17/19 11:00 18 Intake and Output 09/17/19 09/18/19 09/18/19 22:59 06:59 14:59 Intake Total 600 200 Balance 600 200 Intake: Oral 600 200 Other: Voiding Method Toilet # Voids 2 2 # Bowel Movements 0 - Exam Lungs: bilateral: normal Chest: Normal S1, Normal S2 Extremities: Present: normal Abdomen: Present: normal appearance, soft. Absent: distention, tenderness Incision: Present: normal, dry, intact Uterus: Present: normal, firm
[2019-09-18 15:42] VITALS: RESP 18
[2019-09-19] MEDS: HYDROcodone/APAP 7.5-325MG 1 EACH TAB PO PRN (07:46)
--- NOTE | 2019-09-19 08:44 | P.DS ---
Providers Date of admission: 09/16/19 09:54 Expected date of discharge: 09/19/19 Attending physician: Paolo Lynne Primary care physician: Stated None Hospital Course: Patient doing very well postop day 3. She is involuting, voiding and tolerating her diet. She voices no complaints. Vital signs stable afebrile. Heart regular, lungs clear, extremities without pain. Abdomen soft incisions clean dry and intact. We'll plan discharged home later today assuming baby is able to go home. Prescription for [place] and Motrin were provided. All the questions were answered for her prior to discharge and she is stable for discharge this t ruthie. She will follow up with me in 1 week for's incision evaluation. Patient Condition at Discharge: Good Plan - Discharge Summary Discharge Rx Participant: Yes New Discharge Prescriptions: New Ibuprofen [Motrin] 600 mg PO Q6HR PRN #30 tab PRN Reason: Pain HYDROcodone/APAP 5-325MG [[place] 5-325] 1 tab PO Q4HR PRN #30 tab PRN Reason: Pain No Action Pnv,Calcium 72/Iron/Folic Acid [ Plus Tablet] 1 tab PO DAILY Discharge Medication List Pnv,Calcium 72/Iron/Folic Acid [ Plus Tablet] 1 tab PO DAILY 06/12/19 [History] HYDROcodone/APAP 5-325MG [[place] 5-325] 1 tab PO Q4HR PRN #30 tab 09/19/19 [Rx] Ibuprofen [Motrin] 600 mg PO Q6HR PRN #30 tab 09/19/19 [Rx] Follow up Appointment(s)/Referral(s): Paolo Lynne DO [Doctor of Osteopathic Medicine] - 1 Week Activity/Diet/Wound Care/Special Instructions: No heavy lifting, limit insertion driving, and pelvic rest. If any high temperatures, heavy bleeding, or severe pain call my office Discharge Disposition: HOME SELF-CARE
[2019-09-19 09:09] VITALS: BP 116/79; PULSE 81; TEMP 98.5
[2019-09-19] MEDS: SENNOSIDES-DOCUSATE SODIUM 1 EACH TAB PO SCH (11:11)
== END 2019-09-19 13:15 | disposition home or self-care (01) | DRG 788 ==
LOC: 4FBP 09:54
PROVIDERS: ADMIT Obstetrics & Gynecology; ATTEND Obstetrics & Gynecology
PROC: 0U9L0ZZ Drainage of Vestibular Gland, Open Approach (ICD-10-PCS; 2019-09-16)
PROC: 10D00Z1 Extraction of Products of Conception, Low, Open Approach (ICD-10-PCS; principal; 2019-09-16 12:00)
DX: O34.211 Maternal care for low transverse scar from previous cesarean delivery (principal); O75.89 Other specified complications of labor and delivery; N75.0 Cyst of Bartholin's gland; Z37.0 Single live birth; Z3A.39 39 weeks gestation of pregnancy; Z91.040 Latex allergy status; Z91.048 Other nonmedicinal substance allergy status; Z87.891 Personal history of nicotine dependence
CPT/HCPCS: 85025; 86850; 86900; 86901

== ENCOUNTER 2021-04-20 21:22 | Emergency (ER) | payer OTHER ==
[2021-04-20] MEDS ORDERED: IBUPROFEN 800 MG TAB PO STA (22:47)
[2021-04-20] MEDS ORDERED: ACETAMINOPHEN TAB 500 MG TAB PO STA (22:47)
[2021-04-20 23:28] LABS: Appearance,Urine Clear (Clear); Bilirubin,Urine Negative (Negative); Blood,Urine Negative (Negative); Color,Urine Light Yellow; Glucose,Urine (UA) Negative (Negative); Ketones,Urine Negative (Negative); Leukocyte Esterase,Urine Negative (Negative); Nitrite,Urine Negative (Negative); Protein,Urine Negative (Negative); Specific Gravity,Urine 1.018 (1.001-1.035); Urobilinogen,Urine <2.0 mg/dL (<2.0)
--- NOTE | 2021-04-20 23:50 | XR ---
EXAMINATION TYPE: XR chest 2V DATE OF EXAM: 04/20/2021 COMPARISON: NONE HISTORY: Cough TECHNIQUE: 2 views FINDINGS: Heart and mediastinum are normal. Lungs are clear. Diaphragm is normal. Bony thorax appears normal. IMPRESSION: Normal chest. Normal heart.
[2021-04-21 00:17] VITALS: BP 94/61; PULSE 90; RESP 16; TEMP 98.6
[2021-04-21] MEDS ORDERED: AMOXIC-POT CLAV 875-125MG 1 EACH TAB PO STA (00:33)
[2021-04-21] MEDS ORDERED: IBUPROFEN 600 MG STARTER PACK 4 TAB BTL PO STA (00:33)
[2021-04-21] MEDS ORDERED: AMOXIC-POT CLAV 875MG STARTER PACK 2 TAB BTL PO STA (00:33)
--- NOTE | 2021-04-21 00:34 | ED ---
Fever HPI - General Chief Complaint: Upper Respiratory Infection Stated Complaint: SOB,cough Time Seen by Provider: 04/20/21 22:45 Source: family Mode of arrival: ambulatory Limitations: no limitations - Related Data Home Medications Medication Instructions Recorded Confirmed Pnv,Calcium 72/Iron/Folic Acid 1 tab PO DAILY 06/12/19 09/16/19 [ Plus Tablet] Previous Rx's Medication Instructions Recorded HYDROcodone/APAP 5-325MG [[place] 1 tab PO Q4HR PRN #30 tab 09/19/19 5-325] Ibuprofen [Motrin] 600 mg PO Q6HR PRN #30 tab 09/19/19 Allergies Allergy/AdvReac Type Severity Reaction Status Date / Time adhesive tape Allergy rash/hives,states Verified 04/20/21 22:10 "paper tape is ok" latex Allergy Rash/Hives Verified 04/20/21 22:10 Review of Systems ROS Statement: Those systems with pertinent positive or pertinent negative responses have been documented in the HPI. ROS Other: All systems not noted in ROS Statement are negative. Past Medical History Past Medical History: No Reported History Additional Past Medical History / Comment(s): "trichomonas" History of Any Multi-Drug Resistant Organisms: None Reported Past Surgical History: Section, Hernia Repair Additional Past Surgical History / Comment(s): Fibroadenoma removed left axilla Past Anesthesia/Blood Transfusion Reactions: No Reported Reaction Additional Past Anesthesia/Blood Transfusion Reaction / Comment(s): no hx blood transfusion Past Psychological History: No Psychological Hx Reported Smoking Status: Current every day smoker Past Alcohol Use History: Occasional Past Drug Use History: Marijuana - Past Family History Mother Family Medical History: No Reported History General Exam Limitations: no limitations Course Vital Signs 04/20/21 04/21/21 22:10 00:16 Temperature 100.5 F H 98.6 F Pulse Rate 111 H 90 Respiratory 20 16 Rate Blood Pressure 117/72 94/61 O2 Sat by Pulse 99 97 Oximetry Medical Decision Making - Lab Data Lab Results 04/20/21 04/20/21 04/20/21 Range/Units 22:15 23:06 23:06 Urine Color Light Yellow Urine Appearance Clear (Clear) Urine pH 7.0 (5.0-8.0) Ur Specific [place] 1.018 (1.001-1.035) Urine Protein Negative (Negative) Urine Glucose (UA) Negative (Negative) Urine Ketones Negative (Negative) Urine Blood Negative (Negative) Urine Nitrite Negative (Negative) Urine Bilirubin Negative (Negative) Urine Urobilinogen <2.0 (<2.0) mg/dL Ur Leukocyte Esterase Negative (Negative) Urine HCG, Qual Not Detected (Not Detectd) Coronavirus (PCR) Not Detected (Not Detectd) Group A Strep Rapid (Negative) 04/20/21 Range/Units 23:06 Urine Color Urine Appearance (Clear) Urine pH (5.0-8.0) Ur Specific [place] (1.001-1.035) Urine Protein (Negative) Urine Glucose (UA) (Negative) Urine Ketones (Negative) Urine Blood (Negative) Urine Nitrite (Negative) Urine Bilirubin (Negative) Urine Urobilinogen (<2.0) mg/dL Ur Leukocyte Esterase (Negative) Urine HCG, Qual (Not Detectd) Coronavirus (PCR) (Not Detectd) Group A Strep Rapid Negative (Negative) Disposition Clinical Impression: Viral infection, Pharyngitis, Fever Disposition: HOME SELF-CARE Condition: Good Instructions (If sedation given, give patient instructions): Fever in Adults (ED), Pharyngitis (ED) Is patient prescribed a controlled substance at d/c from ED?: No Referrals: Leidy Lomax MD [Primary Care Provider] - 1-2 days
== END 2021-04-21 00:47 | disposition home or self-care (01) ==
LOC: EC 21:22
DX: B34.9 Viral infection, unspecified (principal); F17.200 Nicotine dependence, unspecified, uncomplicated; F12.90 Cannabis use, unspecified, uncomplicated; Z20.822 Contact with and (suspected) exposure to COVID-19
CPT/HCPCS: 71046; 81003; 81025; 87081; 87430; 87635; 99285

== ENCOUNTER 2021-05-09 23:41 | Emergency (ER) | payer OTHER ==
[2021-05-10] MEDS ORDERED: BACITRACIN OINT 1 EACH PACKET TOPICAL ONE (00:37)
[2021-05-10 01:11] LABS: Appearance,Urine Cloudy (Clear); Bacteria,Urine Rare /hpf; Bilirubin,Urine Negative (Negative); Blood,Urine Negative (Negative); Color,Urine Yellow; Glucose,Urine (UA) Negative (Negative); Ketones,Urine Negative (Negative); Leukocyte Esterase,Urine Moderate (Negative); Mucus,Urine Many /hpf; Nitrite,Urine Negative (Negative); PH, Urine 5.5 (5.0-8.0); Protein,Urine 1+ (Negative); RBC,Urine 1 /hpf (0-5); Specific Gravity,Urine 1.039 (1.001-1.035); Squamous Epithelial Cell,Urine 5 /hpf (0-4); WBC,Urine 27 /hpf (0-5)
[2021-05-10] MEDS ORDERED: FLUCONAZOLE 150 MG TAB PO STA (01:11)
--- NOTE | 2021-05-10 01:16 | ED ---
General Adult HPI - General Chief complaint: Urogenital Stated complaint: Female Time Seen by Provider: 05/09/21 23:59 Source: patient Mode of arrival: ambulatory Limitations: no limitations - History of Present Illness Initial comments: 31 year-old female patient presents to the emergency department for evaluation of vaginal itching and burning. States that she just completed an augmentin prescription for a sinus infection. Denies any vaginal discharge. Denies concern for STIs. Denies chance of . Denies abdominal pain, vomiting, or diarr hea. Denies any wounds. - Related Data Home Medications Medication Instructions Recorded Confirmed Pnv,Calcium 72/Iron/Folic Acid 1 tab PO DAILY 06/12/19 09/16/19 [ Plus Tablet] Previous Rx's Medication Instructions Recorded HYDROcodone/APAP 5-325MG [[place] 1 tab PO Q4HR PRN #30 tab 09/19/19 5-325] Ibuprofen [Motrin] 600 mg PO Q6HR PRN #30 tab 09/19/19 Amoxic-Pot Clav 875-125Mg 1 tab PO Q12HR #20 tablet 04/21/21 [Augmentin 875-125] Fluconazole [Diflucan] 150 mg PO ONCE #2 tab 05/10/21 Allergies Allergy/AdvReac Type Severity Reaction Status Date / Time adhesive tape Allergy rash/hives,states Verified 05/09/21 23:57 "paper tape is ok" latex Allergy Rash/Hives Verified 05/09/21 23:57 Review of Systems ROS Statement: Those systems with pertinent positive or pertinent negative responses have been documented in the HPI. ROS Other: All systems not noted in ROS Statement are negative. Past Medical History Past Medical History: No Reported History Additional Past Medical History / Comment(s): "trichomonas" History of Any Multi-Drug Resistant Organisms: None Reported Past Surgical History: Section, Hernia Repair Additional Past Surgical History / Comment(s): Fibroadenoma removed left axilla Past Anesthesia/Blood Transfusion Reactions: No Reported Reaction Additional Past Anesthesia/Blood Transfusion Reaction / Comment(s): no hx blood transfusion Past Psychological History: No Psychological Hx Reported Smoking Status: Current every day smoker Past Alcohol Use History: Occasional Past Drug Use History: Marijuana - Past Family History Mother Family Medical History: No Reported History General Exam Limitations: no limitations General appearance: alert, in no apparent distress Respiratory exam: Present: normal lung sounds bilaterally. Absent: respiratory distress, wheezes, rales, rhonchi, stridor Cardiovascular Exam: Present: regular rate, normal rhythm, normal heart sounds. Absent: systolic murmur, diastolic murmur, rubs, gallop, clicks GI/Abdominal exam: Present: soft, normal bowel sounds. Absent: distended, tenderness, guarding, rebound, rigid External exam: Present: erythema. Absent: lesions Neurological exam: Present: alert, oriented X3, CN II-XII intact Psychiatric exam: Present: normal affect, normal mood Skin exam: Present: warm, dry, intact, normal color. Absent: rash Course Vital Signs 05/09/21 05/10/21 23:46 01:29 Temperature 99.0 F 97.7 F Pulse Rate 102 H 71 Respiratory 18 20 Rate Blood Pressure 110/73 132/78 O2 Sat by Pulse 95 98 Oximetry Medical Decision Making - Medical Decision Making 31 year old female patient presents for vaginal itching and burning. Recently completed augmentin prescription. Symptoms consistent with vaginal yeast infection. Urinalysis shows no infection. test negative. She is given diflucan. Is given prescription for Diflucan repeat doses. She is instructed to follow up with her primary care physician recheck in 1-2 days. Return parameters were discussed in detail. She verbalizes understanding and agrees with this plan. My attending is Dr. Whiting. - Lab Data Lab Results 05/10/21 05/10/21 Range/Units 00:44 00:44 Urine Color Yellow Urine Appearance Cloudy H (Clear) Urine pH 5.5 (5.0-8.0) Ur Specific [employer] 1.039 H (1.001-1.035) Urine Protein 1+ H (Negative) Urine Glucose (UA) Negative (Negative) Urine Ketones Negative (Negative) Urine Blood Negative (Negative) Urine Nitrite Negative (Negative) Urine Bilirubin Negative (Negative) Urine Urobilinogen 2.0 (<2.0) mg/dL Ur Leukocyte Esterase Moderate H (Negative) Urine RBC 1 (0-5) /hpf Urine WBC 27 H (0-5) /hpf Ur Squamous Epith Cells 5 H (0-4) /hpf Urine Bacteria Rare H (None) /hpf Urine Mucus Many H (None) /hpf Urine HCG, Qual Not Detected (Not Detectd) Disposition Clinical Impression: Vaginal candidiasis Disposition: HOME SELF-CARE Condition: Good Instructions (If sedation given, give patient instructions): Yeast Infection (ED) Additional Instructions: Take the next Diflucan pill in 3 days. Use the hydrocortisone cream externally only, as needed for itching. Follow-up with primary care physician for recheck in 1-2 days. Return for any new, worsening, or concerning symptoms. Prescriptions: Fluconazole [Diflucan] 150 mg PO ONCE #2 tab Is patient prescribed a controlled substance at d/c from ED?: No Referrals: Leidy Lomax MD [Primary Care Provider] - 1-2 days Time of Disposition: 01:24
[2021-05-10 01:32] VITALS: BP 132/78; PULSE 71; RESP 20; TEMP 97.7
== END 2021-05-10 01:31 | disposition home or self-care (01) ==
LOC: EC 23:41
DX: B37.3 Candidiasis of vulva and vagina (principal); F17.200 Nicotine dependence, unspecified, uncomplicated; F12.90 Cannabis use, unspecified, uncomplicated; Z86.018 Personal history of other benign neoplasm; Z79.1 Long term (current) use of non-steroidal anti-inflammatories (NSAID)
CPT/HCPCS: 81001; 81025; 87086; 99283

== ENCOUNTER 2021-05-15 11:30 | Emergency (ER) | payer OTHER ==
[2021-05-15 11:34] VITALS: TEMP 98
[2021-05-15 13:22] LABS: Bacteria,Urine Few /hpf; Mucus,Urine Rare /hpf; RBC,Urine 7 /hpf (0-5); Squamous Epithelial Cell,Urine 1 /hpf (0-4); WBC,Urine 33 /hpf (0-5)
[2021-05-15 13:24] LABS: Appearance,Urine Clear (Clear); Bilirubin,Urine Negative (Negative); Blood,Urine Negative (Negative); Color,Urine Colorless; Glucose,Urine (UA) Negative (Negative); Ketones,Urine Negative (Negative); Leukocyte Esterase,Urine Large (Negative); Nitrite,Urine Negative (Negative); Protein,Urine Negative (Negative); Urobilinogen,Urine <2.0 mg/dL (<2.0)
--- NOTE | 2021-05-15 13:25 | ED ---
General Adult HPI - General Chief complaint: Urogenital Stated complaint: Female Time Seen by Provider: 05/15/21 11:36 Source: patient, RN notes reviewed Mode of arrival: ambulatory Limitations: no limitations - History of Present Illness Initial comments: 31-year-old female presents to the emergency room for a chief complaint of vaginal burning and discharge. Patient reports that this is been ongoing for about a week now. States that she was and it is not going away. Patient does not believe she has any STDs. Patient denies abdominal pain. Denies fevers.Patient has no other complaints at this time including shortness of breath, chest pain, abdominal pain, nausea or vomiting, headache, or visual changes. - Related Data Previous Rx's Medication Instructions Recorded Fluconazole [Diflucan] 150 mg PO ONCE #2 tab 05/10/21 Doxycycline [Vibramycin] 100 mg PO BID 7 Days #14 capsule 05/15/21 metroNIDAZOLE [Flagyl] 500 mg PO BID #14 tab 05/15/21 Allergies Allergy/AdvReac Type Severity Reaction Status Date / Time adhesive tape Allergy rash/hives,states Verified 05/15/21 12:05 "paper tape is ok" latex Allergy Rash/Hives Verified 05/15/21 12:05 Review of Systems ROS Statement: Those systems with pertinent positive or pertinent negative responses have been documented in the HPI. ROS Other: All systems not noted in ROS Statement are negative. Past Medical History Past Medical History: No Reported History Additional Past Medical History / Comment(s): "trichomonas" History of Any Multi-Drug Resistant Organisms: None Reported Past Surgical History: Section, Hernia Repair Additional Past Surgical History / Comment(s): Fibroadenoma removed left axilla Past Anesthesia/Blood Transfusion Reactions: No Reported Reaction Additional Past Anesthesia/Blood Transfusion Reaction / Comment(s): no hx blood transfusion Past Psychological History: No Psychological Hx Reported Smoking Status: Current every day smoker Past Alcohol Use History: Occasional Past Drug Use History: Marijuana - Past Family History Mother Family Medical History: No Reported History General Exam Limitations: no limitations General appearance: alert, in no apparent distress Head exam: Present: atraumatic, normocephalic, normal inspection Eye exam: Present: normal appearance, PERRL, EOMI. Absent: scleral icterus, conjunctival injection, periorbital swelling ENT exam: Present: normal exam, mucous membranes moist Neck exam: Present: normal inspection, full ROM. Absent: tenderness, meningismus, lymphadenopathy Respiratory exam: Present: normal lung sounds bilaterally. Absent: respiratory distress, wheezes, rales, rhonchi, stridor Cardiovascular Exam: Present: regular rate, normal rhythm, normal heart sounds. Absent: systolic murmur, diastolic murmur, rubs, gallop, clicks GI/Abdominal exam: Present: soft, normal bowel sounds. Absent: distended, tenderness, guarding, rebound, rigid External exam: Present: normal external exam. Absent: erythema, swelling, lesions, lacerations, ecchymosis Speculum exam: Present: vaginal discharge (Minimal vaginal discharge noted). Absent: erythema, cervical discharge, vaginal bleeding, foreign body, tissue, laceration By manual exam: Present: normal by manual exam. Absent: cervical motion tenderness Course Vital Signs 05/15/21 05/15/21 11:31 13:34 Temperature 98.0 F Pulse Rate 75 74 Respiratory 18 16 Rate Blood Pressure 107/81 105/63 O2 Sat by Pulse 99 99 Oximetry Medical Decision Making - Medical Decision Making She is well-appearing. Vitals are stable. Abdomen is nontender. Pelvic reveals slight vaginal discharge. Patient is Trichomonas positive. Will be treated with Flagyl. Will follow up with primary care. Return for any worsening symptoms. She will be treated empirically for G/C. - Lab Data Lab Results 05/15/21 05/15/21 05/15/21 Range/Units 12:34 12:34 12:34 Urine Color Colorless Urine Appearance Clear (Clear) Urine pH 6.0 (5.0-8.0) Ur Specific [place] 1.020 (1.001-1.035) Urine Protein Negative (Negative) Urine Glucose (UA) Negative (Negative) Urine Ketones Negative (Negative) Urine Blood Negative (Negative) Urine Nitrite Negative (Negative) Urine Bilirubin Negative (Negative) Urine Urobilinogen <2.0 (<2.0) mg/dL Ur Leukocyte Esterase Large (Negative) Urine RBC 7 H (0-5) /hpf Urine WBC 33 H (0-5) /hpf Ur Squamous Epith Cells 1 (0-4) /hpf Urine Bacteria Few H (None) /hpf Urine Mucus Rare H (None) /hpf Urine HCG, Qual Not Detected (Not Detectd) Trichomonas Ag (Rapid) Positive H (Negative) Disposition Clinical Impression: Trichomoniasis of vagina Disposition: HOME SELF-CARE Condition: Good Instructions (If sedation given, give patient instructions): Trichomoniasis (ED) Additional Instructions: Please take antibiotic as directed. Do not engage in sexual intercourse until both you and your partner have been cleared by primary care. You may need repeat STD testing to make sure this has been treated. Return to the emergency room for any worsening symptoms. Do not drink alcohol with this medication. Prescriptions: metroNIDAZOLE [Flagyl] 500 mg PO BID #14 tab Doxycycline [Vibramycin] 100 mg PO BID 7 Days #14 capsule Is patient prescribed a controlled substance at d/c from ED?: No Referrals: Leidy Lomax MD [Primary Care Provider] - 1-2 days Time of Disposition: 13:38
[2021-05-15] MEDS ORDERED: metroNIDAZOLE 500 MG TAB PO STA (13:36)
[2021-05-15 13:38] VITALS: BP 105/63; PULSE 74; RESP 16
[2021-05-15] MEDS ORDERED: DOXYCYCLINE 100 MG CAP PO STA (13:46)
[2021-05-15] MEDS ORDERED: cefTRIAXone 250 MG VIAL IM STA (13:46)
[2021-05-16 15:59] LABS: C. trachomatis,PCR Negative (Neg,Equiv); Chlamydia trachomatis Source Vagina; N. gonorrhoeae,PCR Negative (Neg,Equiv); Neisseria Source Vagina
== END 2021-05-15 14:07 | disposition home or self-care (01) ==
LOC: EC 11:30
DX: A59.01 Trichomonal vulvovaginitis (principal); F17.200 Nicotine dependence, unspecified, uncomplicated; Z91.040 Latex allergy status; Z91.09 Other allergy status, other than to drugs and biological substances
CPT/HCPCS: 99283; 96372; 81001; 81025; 87808; 87491; 87591; 87070; 87086; J0696

== ENCOUNTER 2021-05-28 17:04 | Emergency (ER) | payer OTHER ==
[2021-05-28 17:17] VITALS: TEMP 98
[2021-05-28 17:44] VITALS: RESP 18
--- NOTE | 2021-05-28 18:16 | ED ---
Abdominal Pain HPI - General Chief Complaint: Abdominal Pain Stated Complaint: Nausea/Abd & Back Pain Time Seen by Provider: 05/28/21 17:23 Source: patient Mode of arrival: ambulatory Limitations: no limitations - History of Present Illness Initial Comments: Chris is a 31yo F who presents to the ER today complaining of pelvic pain and concern for exposure sexual transmitted infection. - Related Data Previous Rx's Medication Instructions Recorded Doxycycline [Vibramycin] 100 mg PO BID 7 Days #14 capsule 05/28/21 Fluconazole [Diflucan] 150 mg PO DAILY 2 Days #2 tab 05/28/21 Allergies Allergy/AdvReac Type Severity Reaction Status Date / Time adhesive tape Allergy rash/hives,states Verified 05/28/21 17:58 "paper tape is ok" latex Allergy Rash/Hives Verified 05/28/21 17:58 Review of Systems ROS Statement: Those systems with pertinent positive or pertinent negative responses have been documented in the HPI. ROS Other: All systems not noted in ROS Statement are negative. Past Medical History Past Medical History: No Reported History Additional Past Medical History / Comment(s): "trichomonas" History of Any Multi-Drug Resistant Organisms: None Reported Past Surgical History: Section, Hernia Repair Additional Past Surgical History / Comment(s): Fibroadenoma removed left axilla Past Anesthesia/Blood Transfusion Reactions: No Reported Reaction Additional Past Anesthesia/Blood Transfusion Reaction / Comment(s): no hx blood transfusion Past Psychological History: No Psychological Hx Reported Smoking Status: Current some day smoker Past Alcohol Use History: Occasional Past Drug Use History: Marijuana - Past Family History Mother Family Medical History: No Reported History General Exam - General Exam Comments Initial Comments: Physical Exam GENERAL: Patient is well-developed and well-nourished. Patient is nontoxic and well-hydrated and is in no distress. HENT: Normocephalic, Atraumatic. EYES: PERRL, EOMI PULMONARY: Unlabored respirations. CARDIOVASCULAR: RRR Warm and well perfused extremities ABDOMEN: Non-distended SKIN: No rashes or bruising : White discharge concerning for candidiasis NEUROLOGIC: Alert and oriented Normal speech Normal gait MUSCULOSKELETAL: Moving all extremities with no apparent injury PSYCHIATRIC: No SI/HI Limitations: no limitations Course Vital Signs 05/28/21 05/28/21 05/28/21 17:14 17:43 18:20 Temperature 98.0 F Pulse Rate 91 80 78 Respiratory 16 18 18 Rate Blood Pressure 116/79 115/79 112/64 O2 Sat by Pulse 100 98 98 Oximetry 05/28/21 05/28/21 05/28/21 19:00 20:07 20:16 Temperature 98.0 F Pulse Rate 72 78 78 Respiratory 18 18 18 Rate Blood Pressure 118/69 113/72 113/72 O2 Sat by Pulse 100 100 100 Oximetry Medical Decision Making - Medical Decision Making Patient was seen and evaluated history is obtained from patient. Patient complained of abdominal pain in triage but reports she was really just concerned about exposure sexual transmitted infection pelvic exams consistent with a candidal infection but patient will be treated empirically for sexual transmitted infections are provided with local results. Patient discharged home in stable condition - Lab Data Lab Results 05/28/21 05/28/21 05/28/21 Range/Units 18:16 18:16 18:16 POC Glucose (mg/dL) (75-99) mg/dL POC Glu Location Director ID Urine Color Yellow Urine Appearance Cloudy H (Clear) Urine pH 5.5 (5.0-8.0) Ur Specific [place] 1.024 (1.001-1.035) Urine Protein Trace H (Negative) Urine Glucose (UA) Negative (Negative) Urine Ketones Negative (Negative) Urine Blood Negative (Negative) Urine Nitrite Negative (Negative) Urine Bilirubin Negative (Negative) Urine Urobilinogen <2.0 (<2.0) mg/dL Ur Leukocyte Esterase Moderate H (Negative) Urine RBC 2 (0-5) /hpf Urine WBC 3 (0-5) /hpf Ur Squamous Epith Cells 9 H (0-4) /hpf Urine Mucus Few H (None) /hpf Urine HCG, Qual Not Detected (Not Detectd) Chlamydia Source Chlamydia DNA (PCR) (Neg,Equiv) N. gonorrhoeae Source N.gonorrhoeae DNA Probe (Neg,Equiv) Trichomonas Ag (Rapid) Negative (Negative) 05/28/21 05/28/21 Range/Units 18:16 19:37 POC Glucose (mg/dL) 81 (75-99) mg/dL POC Glu Location Director ID Em, [place] Urine Color Urine Appearance (Clear) Urine pH (5.0-8.0) Ur Specific [place] (1.001-1.035) Urine Protein (Negative) Urine Glucose (UA) (Negative) Urine Ketones (Negative) Urine Blood (Negative) Urine Nitrite (Negative) Urine Bilirubin (Negative) Urine Urobilinogen (<2.0) mg/dL Ur Leukocyte Esterase (Negative) Urine RBC (0-5) /hpf Urine WBC (0-5) /hpf Ur Squamous Epith Cells (0-4) /hpf Urine Mucus (None) /hpf Urine HCG, Qual (Not Detectd) Chlamydia Source Urine Chlamydia DNA (PCR) Negative (Neg,Equiv) N. gonorrhoeae Source Urine N.gonorrhoeae DNA Probe Negative (Neg,Equiv) Trichomonas Ag (Rapid) (Negative) Disposition Clinical Impression: Vaginal discharge, Vaginal candidiasis Disposition: HOME SELF-CARE Prescriptions: Fluconazole [Diflucan] 150 mg PO DAILY 2 Days #2 tab Doxycycline [Vibramycin] 100 mg PO BID 7 Days #14 capsule Is patient prescribed a controlled substance at d/c from ED?: No Referrals: Leidy Lomax MD [Primary Care Provider] - 1-2 days
[2021-05-28 18:31] LABS: Appearance,Urine Cloudy (Clear); Bilirubin,Urine Negative (Negative); Blood,Urine Negative (Negative); Color,Urine Yellow; Glucose,Urine (UA) Negative (Negative); Ketones,Urine Negative (Negative); Leukocyte Esterase,Urine Moderate (Negative); Mucus,Urine Few /hpf; Nitrite,Urine Negative (Negative); PH, Urine 5.5 (5.0-8.0); Protein,Urine Trace (Negative); RBC,Urine 2 /hpf (0-5); Specific Gravity,Urine 1.024 (1.001-1.035); Squamous Epithelial Cell,Urine 9 /hpf (0-4); Urobilinogen,Urine <2.0 mg/dL (<2.0); WBC,Urine 3 /hpf (0-5)
--- NOTE | 2021-05-28 19:01 | US ---
EXAMINATION TYPE: US transvaginal DATE OF EXAM: 05/28/2021 COMPARISON: NONE CLINICAL HISTORY: pain. back and pelvic pain x 1 day, patient questioning an STD TECHNIQUE: TV. Transvaginal sonographic images Date of LMP: 05/05/2021 EXAM MEASUREMENTS: Uterus: 10.5 x 5.8 x 5.3 cm Endometrial Stripe: 0.4 cm Right Ovary: 3.0 x 2.4 x 2.1 cm Left Ovary: 1.8 x 1.8 x 2.2 cm 1. Uterus: Anteverted wnl 2. Endometrium: wnl 3. Right Ovary: small follicle versus involuting cyst = 1.8 x 0.8 x 0.8cm 4. Left Ovary: wnl Spectral, color and waveform doppler imaging shows good arterial and venous flow within the ovaries ; there is no evidence for ovarian torsion. 5. Bilateral Adnexa: wnl 6. Posterior cul-de-sac: wnl IMPRESSION: Normal uterus and endometrium. No free fluid. No evidence of ovarian torsion.
[2021-05-28] MEDS ORDERED: cefTRIAXone 500 MG VIAL IM STA (19:27)
[2021-05-28] MEDS ORDERED: DOXYCYCLINE 100 MG CAP PO STA (19:27)
[2021-05-28 19:38] LABS: Glucose,Whole Blood 81 mg/dL (75-99)
[2021-05-28 20:07] VITALS: BP 113/72; PULSE 78
[2021-05-30 16:18] LABS: C. trachomatis,PCR Negative (Neg,Equiv); Chlamydia trachomatis Source Urine; N. gonorrhoeae,PCR Negative (Neg,Equiv); Neisseria Source Urine
== END 2021-05-28 20:17 | disposition home or self-care (01) ==
LOC: EC 17:04
DX: B37.3 Candidiasis of vulva and vagina (principal); F17.200 Nicotine dependence, unspecified, uncomplicated; Z91.040 Latex allergy status; Z91.09 Other allergy status, other than to drugs and biological substances
CPT/HCPCS: 99284; 96372; 36415; 81001; 81025; 87808; 87491; 87591; 87070; 93975; 76830; J0696

== ENCOUNTER 2021-07-28 10:57 | Emergency (ER) | payer OTHER ==
[2021-07-28] MEDS ORDERED: SODIUM CHLORIDE 0.9% 1,000 ML IV ONE (12:23)
[2021-07-28] MEDS ORDERED: KETOROLAC 15 MG/ML 1 ML VIAL IVP STA ×2 (12:23→13:06)
[2021-07-28] MEDS ORDERED: diphenhydrAMINE 50 MG/ML 1 ML VIAL IVP STA (12:23)
[2021-07-28] MEDS ORDERED: DIAZEPAM 5 MG/ML 2 ML INJ IVP STA (13:06)
--- NOTE | 2021-07-28 13:35 | CT ---
EXAMINATION TYPE: CT brain wo con DATE OF EXAM: 07/28/2021 COMPARISON: None HISTORY: headache CT DLP: 1099.4 mGycm. Automated Exposure Control for Dose Reduction was Utilized. TECHNIQUE: CT scan of the head is performed without contrast. FINDINGS: There is no acute intracranial hemorrhage, mass effect, or midline shift identified. The ventricles and sulci are within normal limits in size. The globes are intact and the visualized sin uses are clear. Partially into sella turcica. IMPRESSION: 1. No acute intracranial hemorrhage, mass effect, or midline shift is seen. 2. Findings suggest a partially empty sella turcica. Cerebellar tonsils also low-lying in position n ear foramen magnum. This can occasionally be seen with increased intracranial pressure. Correlate cli nically. MRI follow-up suggested.
--- NOTE | 2021-07-28 14:01 | ED ---
Headache HPI - General Chief Complaint: Headache Stated Complaint: Migraine Time Seen by Provider: 07/28/21 12:07 Source: patient, RN notes reviewed Mode of arrival: ambulatory Limitations: no limitations - History of Present Illness Initial Comments: This a 31-year-old female presents emergency apartment with chief complaint of migraine headache. Patient states she suffered migraine headache she's been having more frequent headaches again and which she has not been on any medications for. Denies any visual disturbances denies done dizzy, lightheaded and short of breath no fevers or chills no neck pain or neck stiffness. Patient denies taking any recent for her headache. She does when a lot of photophobia. - Related Data Home Medications Medication Instructions Recorded Confirmed No Known Home Medications 07/28/21 07/28/21 Allergies Allergy/AdvReac Type Severity Reaction Status Date / Time adhesive tape Allergy rash/hives,states Verified 07/28/21 12:58 "paper tape is ok" latex Allergy Rash/Hives Verified 07/28/21 12:58 Review of Systems ROS Statement: Those systems with pertinent positive or pertinent negative responses have been documented in the HPI. ROS Other: All systems not noted in ROS Statement are negative. Past Medical History Past Medical History: No Reported History Additional Past Medical History / Comment(s): "trichomonas" History of Any Multi-Drug Resistant Organisms: None Reported Past Surgical History: Section, Hernia Repair Additional Past Surgical History / Comment(s): Fibroadenoma removed left axilla Past Anesthesia/Blood Transfusion Reactions: No Reported Reaction Additional Past Anesthesia/Blood Transfusion Reaction / Comment(s): no hx blood transfusion Past Psychological History: No Psychological Hx Reported Smoking Status: Current some day smoker Past Alcohol Use History: Occasional Past Drug Use History: Marijuana - Past Family History Mother Family Medical History: No Reported History General Exam Limitations: no limitations General appearance: alert, in no apparent distress Head exam: Present: atraumatic, normocephalic, normal inspection Eye exam: Present: normal appearance, PERRL, EOMI. Absent: scleral icterus, conjunctival injection, periorbital swelling ENT exam: Present: normal exam, normal oropharynx, mucous membranes moist Neck exam: Present: normal inspection, full ROM. Absent: tenderness, meningismus, lymphadenopathy Respiratory exam: Present: normal lung sounds bilaterally. Absent: respiratory distress, wheezes, rales, rhonchi, stridor Cardiovascular Exam: Present: regular rate, normal rhythm, normal heart sounds. Absent: systolic murmur, diastolic murmur, rubs, gallop, clicks Neurological exam: Present: alert, oriented X3, CN II-XII intact, reflexes normal. Absent: motor sensory deficit Skin exam: Present: warm, dry, intact, normal color. Absent: rash Course Vital Signs 07/28/21 11:39 Temperature 98.4 F Pulse Rate 60 Respiratory 20 Rate Blood Pressure 119/79 O2 Sat by Pulse 98 Oximetry Medical Decision Making - Medical Decision Making CT is did show evidence of low lying tonsils though this may be chronic for patient. Patient states she believes she was told him it's in the past. Her headache is improved she is neurologically intact no deficits. Patient will follow-up with urology return parameters were discussed. Disposition Clinical Impression: Migraine headache Disposition: HOME SELF-CARE Condition: Stable Instructions (If sedation given, give patient instructions): Acute Headache (ED) Additional Instructions: Please return to the Emergency Department if symptoms worsen or any other concerns. Is patient prescribed a controlled substance at d/c from ED?: No Referrals: Leidy Lomax MD [Primary Care Provider] - 1-2 days Andre García MD [REFERRING] - 1-2 days Time of Disposition: 14:01
[2021-07-28 14:52] VITALS: BP 107/80; PULSE 65; RESP 16; TEMP 98.2
== END 2021-07-28 15:00 | disposition home or self-care (01) ==
LOC: EC 10:57
DX: G43.909 Migraine, unspecified, not intractable, without status migrainosus (principal); F17.200 Nicotine dependence, unspecified, uncomplicated; Z91.040 Latex allergy status; Z91.09 Other allergy status, other than to drugs and biological substances
CPT/HCPCS: 70450; 99284; 96374; 96375; 96376; 96361; J1200; J3360; J1885; J1790

== ENCOUNTER → 2021-10-07 | Outpatient (CLI) | payer OTHER ==
--- NOTE | 2021-10-07 09:48 | MR ---
EXAMINATION TYPE: MR brain wo/w con DATE OF EXAM: 10/07/2021 COMPARISON: None HISTORY: Migraines x 2 months. TECHNIQUE: Multiplanar, multisequence images of the brain and brainstem is performed without and with IV contras t, utilizing 10 mL intravenous Gadavist . FINDINGS: Diffusion weighted images demonstrate no evidence of a recent infarct or other diffusion ab normality. There is no extra-axial fluid collection or significant white matter signal abnormality. The ventricular system and cisternal spaces are normal in size and appearance. The brain volume is age appropriate. Midline structures demonstrate normal morphology. The craniocervical junction appears within normal limits. Post contrast images demonstrate no abnormal enhancement. The dural venous sinuses appear pa tent. The visualized sinuses are clear and the globes are intact. IMPRESSION: No significant abnormality seen.
== END | disposition home or self-care (01) ==
LOC: RADMRIMAIN 08:32
PROVIDERS: ATTEND Family Medicine
DX: H53.9 Unspecified visual disturbance (principal); R51.9 Headache, unspecified; R90.89 Other abnormal findings on diagnostic imaging of central nervous system; E23.6 Other disorders of pituitary gland; Q04.8 Other specified congenital malformations of brain
CPT/HCPCS: 70553; A9585

== ENCOUNTER 2021-10-08 17:15 | Emergency (ER) | payer OTHER ==
--- NOTE | 2021-10-08 18:29 | ED ---
General Adult HPI <Chelsea Price - Last Filed: 10/08/21 18:30> <Tereza Barajas - Last Filed: 10/08/21 20:59> - General Stated complaint: Abd Pain - History of Present Illness Initial comments: Chris is a previously healthy 31yo F who presents to the ER via private vehicle for evaluation of RLQ abdominal pain since yesterday. Pain is worse with movement. No associated N/V/D or lower urinary tract symptoms. Did have heavy bleeding with intercourse a few days ago, which is midcycle for her as her last normal period was 09/18. No vaginal discharge or concern for STI. Patient is not . Patient with no COVID exposures. Not vaccinated. Has been prescribed antihypertensives for management of migraines but has not taken them. (Chelsea Price) - Related Data Home Medications Medication Instructions Recorded Confirmed No Known Home Medications 07/28/21 07/28/21 Allergies Allergy/AdvReac Type Severity Reaction Status Date / Time adhesive tape Allergy rash/hives,states Verified 10/08/21 18:30 "paper tape is ok" latex Allergy Rash/Hives Verified 10/08/21 18:30 Review of Systems ROS Other: All systems not noted in ROS Statement are negative. <Chelsea Price - Last Filed: 10/08/21 18:30> ROS Other: All systems not noted in ROS Statement are negative. <Tereza Barajas - Last Filed: 10/08/21 20:59> ROS Statement: Those systems with pertinent positive or pertinent negative responses have been documented in the HPI. Past Medical History Past Medical History: No Reported History Additional Past Medical History / Comment(s): "trichomonas" History of Any Multi-Drug Resistant Organisms: None Reported Past Surgical History: Section, Hernia Repair Additional Past Surgical History / Comment(s): Fibroadenoma removed left axilla Past Anesthesia/Blood Transfusion Reactions: No Reported Reaction Additional Past Anesthesia/Blood Transfusion Reaction / Comment(s): no hx blood transfusion Past Psychological History: No Psychological Hx Reported Smoking Status: Current some day smoker Past Alcohol Use History: Occasional Past Drug Use History: Marijuana - Past Family History Mother Family Medical History: No Reported History <Chelsea Price - Last Filed: 10/08/21 18:30> General Exam <Chelsea Price - Last Filed: 10/08/21 18:30> - General Exam Comments Initial Comments: Physical Exam GENERAL: Patient is well-developed and well-nourished. Patient is nontoxic and well-hydrated and is in no distress. HENT: Normocephalic, Atraumatic. EYES: PERRL, EOMI PULMONARY: Unlabored respirations. CARDIOVASCULAR: RRR Warm and well perfused extremities ABDOMEN: Non-distended SKIN: No rashes or bruising : Deferred NEUROLOGIC: Alert and oriented Normal speech Normal gait MUSCULOSKELETAL: Moving all extremities with no apparent injury PSYCHIATRIC: No SI/HI (Chelsea Price) Course Vital Signs 10/08/21 18:27 Temperature 99.7 F H Pulse Rate 88 Respiratory 20 Rate Blood Pressure 121/84 O2 Sat by Pulse 100 Oximetry Medical Decision Making - Lab Data Result diagrams: 10/08/21 18:44 10/08/21 18:44 - Radiology Data Radiology results: report reviewed, image reviewed <Tereza Barajas - Last Filed: 10/08/21 20:59> - Medical Decision Making 31-year-old female patient presented to the emergency department today for evaluation of right lower quadrant abdominal pain worse with movement. Physical examination revealed soft nontender abdomen. Labs reviewed and are unremarkable. She does have history of ovarian cysts so did perform ultrasound transvaginal which showed no evidence for torsion or cyst. She is afebrile. She'll be discharged to follow-up with the TELECOMMUNICATIONS CLERK for recheck in 1-2 days. Return parameters were discussed in detail. She verbalizes understanding and agree with this plan. Case discussed with my attending Dr. Price. (Tereza Barajas) - Lab Data Lab Results 10/08/21 10/08/21 10/08/21 Range/Units 18:44 18:44 18:44 WBC 8.2 (3.8-10.6) k/uL RBC 4.79 (3.80-5.40) m/uL Hgb 14.7 (11.4-16.0) gm/dL Hct 42.8 (34.0-46.0) % MCV 89.3 (80.0-100.0) fL MCH 30.8 (25.0-35.0) pg MCHC 34.5 (31.0-37.0) g/dL RDW 14.0 (11.5-15.5) % Plt Count 315 (150-450) k/uL MPV 6.9 Neutrophils % 60 % Lymphocytes % 28 % Monocytes % 6 % Eosinophils % 4 % Basophils % 0 % Neutrophils # 4.9 (1.3-7.7) k/uL Lymphocytes # 2.3 (1.0-4.8) k/uL Monocytes # 0.5 (0-1.0) k/uL Eosinophils # 0.3 (0-0.7) k/uL Basophils # 0.0 (0-0.2) k/uL Sodium (137-145) mmol/L Potassium (3.5-5.1) mmol/L Chloride (98-107) mmol/L Carbon Dioxide (22-30) mmol/L Anion Gap mmol/L BUN (7-17) mg/dL Creatinine (0.52-1.04) mg/dL Est GFR (CKD-EPI)AfAm (>60 ml/min/1.73 sqM) Est GFR (CKD-EPI)NonAf (>60 ml/min/1.73 sqM) Glucose (74-99) mg/dL Calcium (8.4-10.2) mg/dL Total Bilirubin (0.2-1.3) mg/dL AST (14-36) U/L ALT (4-34) U/L Alkaline Phosphatase (38-126) U/L C-Reactive Protein (<1.0) mg/dL Total Protein (6.3-8.2) g/dL Albumin (3.5-5.0) g/dL Urine Color Yellow Urine Appearance Cloudy H (Clear) Urine pH 5.5 (5.0-8.0) Ur Specific [place] 1.032 (1.001-1.035) Urine Protein Trace H (Negative) Urine Glucose (UA) Negative (Negative) Urine Ketones 1+ H (Negative) Urine Blood Trace H (Negative) Urine Nitrite Negative (Negative) Urine Bilirubin Negative (Negative) Urine Urobilinogen <2.0 (<2.0) mg/dL Ur Leukocyte Esterase Moderate H (Negative) Urine RBC 5 (0-5) /hpf Urine WBC 25 H (0-5) /hpf Ur Squamous Epith Cells 4 (0-4) /hpf Hyaline Casts 1 (0-2) /lpf Urine Mucus Few H (None) /hpf Urine HCG, Qual Not Detected (Not Detectd) Group A Strep Rapid (Negative) 10/08/21 10/08/21 Range/Units 18:44 19:49 WBC (3.8-10.6) k/uL RBC (3.80-5.40) m/uL Hgb (11.4-16.0) gm/dL Hct (34.0-46.0) % MCV (80.0-100.0) fL MCH (25.0-35.0) pg MCHC (31.0-37.0) g/dL RDW (11.5-15.5) % Plt Count (150-450) k/uL MPV Neutrophils % % Lymphocytes % % Monocytes % % Eosinophils % % Basophils % % Neutrophils # (1.3-7.7) k/uL Lymphocytes # (1.0-4.8) k/uL Monocytes # (0-1.0) k/uL Eosinophils # (0-0.7) k/uL Basophils # (0-0.2) k/uL Sodium 136 L (137-145) mmol/L Potassium 4.1 (3.5-5.1) mmol/L Chloride 107 (98-107) mmol/L Carbon Dioxide 19 L (22-30) mmol/L Anion Gap 10 mmol/L BUN 11 (7-17) mg/dL Creatinine 0.73 (0.52-1.04) mg/dL Est GFR (CKD-EPI)AfAm >90 (>60 ml/min/1.73 sqM) Est GFR (CKD-EPI)NonAf >90 (>60 ml/min/1.73 sqM) Glucose 99 (74-99) mg/dL Calcium 9.6 (8.4-10.2) mg/dL Total Bilirubin 0.5 (0.2-1.3) mg/dL AST 25 (14-36) U/L ALT 14 (4-34) U/L Alkaline Phosphatase 80 (38-126) U/L C-Reactive Protein <0.5 (<1.0) mg/dL Total Protein 7.9 (6.3-8.2) g/dL Albumin 4.4 (3.5-5.0) g/dL Urine Color Urine Appearance (Clear) Urine pH (5.0-8.0) Ur Specific [place] (1.001-1.035) Urine Protein (Negative) Urine Glucose (UA) (Negative) Urine Ketones (Negative) Urine Blood (Negative) Urine Nitrite (Negative) Urine Bilirubin (Negative) Urine Urobilinogen (<2.0) mg/dL Ur Leukocyte Esterase (Negative) Urine RBC (0-5) /hpf Urine WBC (0-5) /hpf Ur Squamous Epith Cells (0-4) /hpf Hyaline Casts (0-2) /lpf Urine Mucus (None) /hpf Urine HCG, Qual (Not Detectd) Group A Strep Rapid Negative (Negative) - Radiology Data Transvaginal ultrasound was obtained. Report reviewed in its entirety. Impression by Dr. Wilkins shows no evidence of ovarian torsion. Normal uterus. No adnexal mass. (Tereza Barajas) Disposition <Chelsea Price - Last Filed: 10/08/21 18:30> Is patient prescribed a controlled substance at d/c from ED?: No Time of Disposition: 20:48 <Tereza Barajas - Last Filed: 10/08/21 20:59> Clinical Impression: Abdominal pain Disposition: HOME SELF-CARE Condition: Good Instructions (If sedation given, give patient instructions): Abdominal Pain (ED) Additional Instructions: Follow-up with your primary care physician for recheck in 1-2 days. Return to the emergency department immediately for any new, worsening, or concerning symptoms Referrals: Leidy Lomax MD [Primary Care Provider] - 1-2 days
[2021-10-08 19:00] LABS: Basophils % (A) 0 %; Eosinophils # (A) 0.3 k/uL (0-0.7); Eosinophils % (A) 4 %; HCT 42.8 % (34.0-46.0); HGB 14.7 gm/dL (11.4-16.0); Lymphocytes # (A) 2.3 k/uL (1.0-4.8); Lymphocytes % (A) 28 %; MCH 30.8 pg (25.0-35.0); MCHC 34.5 g/dL (31.0-37.0); MCV 89.3 fL (80.0-100.0); Mean Platelet Volume 6.9; Monocytes # (A) 0.5 k/uL (0-1.0); Monocytes % (A) 6 %; Neutrophils # (A) 4.9 k/uL (1.3-7.7); Neutrophils % (A) 60 %; Platelet Count 315 k/uL (150-450); RBC 4.79 m/uL (3.80-5.40); WBC 8.2 k/uL (3.8-10.6)
[2021-10-08 19:14] LABS: ALT 14 U/L (4-34); AST 25 U/L (14-36); African American GFR (CKD) >90 (>60 ml/min/1.73 sqM); Albumin 4.4 g/dL (3.5-5.0); Alkaline Phosphatase 80 U/L (38-126); Anion Gap 10 mmol/L; Blood Urea Nitrogen 11 mg/dL (7-17); C Reactive Protein <0.5 mg/dL (<1.0); Calcium 9.6 mg/dL (8.4-10.2); Carbon Dioxide 19 mmol/L (22-30); Chloride 107 mmol/L (98-107); Glucose 99 mg/dL (74-99); Non-African American GFR(CKD) >90 (>60 ml/min/1.73 sqM); Potassium 4.1 mmol/L (3.5-5.1); Sodium 136 mmol/L (137-145); Total Bilirubin 0.5 mg/dL (0.2-1.3); Total Protein 7.9 g/dL (6.3-8.2)
[2021-10-08 19:31] LABS: Appearance,Urine Cloudy (Clear); Bilirubin,Urine Negative (Negative); Blood,Urine Trace (Negative); Color,Urine Yellow; Glucose,Urine (UA) Negative (Negative); Hyaline Casts,Urine 1 /lpf (0-2); Ketones,Urine 1+ (Negative); Leukocyte Esterase,Urine Moderate (Negative); Mucus,Urine Few /hpf; Nitrite,Urine Negative (Negative); PH, Urine 5.5 (5.0-8.0); Protein,Urine Trace (Negative); RBC,Urine 5 /hpf (0-5); Specific Gravity,Urine 1.032 (1.001-1.035); Squamous Epithelial Cell,Urine 4 /hpf (0-4); Urobilinogen,Urine <2.0 mg/dL (<2.0); WBC,Urine 25 /hpf (0-5)
--- NOTE | 2021-10-08 20:29 | US ---
EXAMINATION TYPE: US transvaginal DATE OF EXAM: 10/08/2021 COMPARISON: 05/28/2021 CLINICAL HISTORY: Right lower quadrant pain. TECHNIQUE: Transvaginal (TV). Date of LMP: 09/17/2021 EXAM MEASUREMENTS: Uterus: 8.8 x 5.3 x cm Endometrial Stripe: 0.9 cm Right Ovary: 3.0 x 2.2 x 2.1 cm Left Ovary: 2.9 x 1.8 x 2.8 cm 1. Uterus: Anteverted wnl 2. Endometrium: wnl 3. Right Ovary: wnl 4. Left Ovary: seen better transabdominally due to location. Spectral, color and waveform doppler imaging shows good arterial and venous flow within the ovaries ; there is no evidence for ovarian torsion. 5. Bilateral Adnexa: small amount of free fluid adjacent to right ovary. 6. Posterior cul-de-sac: wnl IMPRESSION: No evidence of ovarian torsion. Normal uterus. No adnexal mass.
[2021-10-08 21:00] VITALS: BP 132/71; PULSE 99; RESP 19; TEMP 98.4
== END 2021-10-08 20:59 | disposition home or self-care (01) ==
LOC: EC 17:15
DX: R10.31 Right lower quadrant pain (principal); F17.200 Nicotine dependence, unspecified, uncomplicated; Z91.09 Other allergy status, other than to drugs and biological substances; Z91.040 Latex allergy status; Z87.42 Personal history of other diseases of the female genital tract
CPT/HCPCS: 36415; 76830; 80053; 81001; 81025; 85025; 86140; 87081; 87086; 87430; 93975; 99284

== ENCOUNTER 2021-11-29 12:05 | Emergency (ER) | payer OTHER ==
[2021-11-29 13:10] LABS: Appearance,Urine Cloudy (Clear); Bilirubin,Urine Negative (Negative); Blood,Urine Trace (Negative); Color,Urine Yellow; Glucose,Urine (UA) Negative (Negative); Ketones,Urine Negative (Negative); Leukocyte Esterase,Urine Large (Negative); Mucus,Urine Many /hpf; Nitrite,Urine Negative (Negative); PH, Urine 5.5 (5.0-8.0); Protein,Urine 1+ (Negative); RBC,Urine 20 /hpf (0-5); Specific Gravity,Urine 1.031 (1.001-1.035); Squamous Epithelial Cell,Urine 7 /hpf (0-4); Urobilinogen,Urine <2.0 mg/dL (<2.0); WBC,Urine 137 /hpf (0-5)
[2021-11-29] MEDS ORDERED: CEPHALEXIN 500MG STARTER PACK 4 CAP BTL PO STA (14:37)
--- NOTE | 2021-11-29 14:39 | ED ---
General Adult HPI - General Chief complaint: Urogenital Stated complaint: uti Time Seen by Provider: 11/29/21 12:50 Source: patient Mode of arrival: ambulatory Limitations: no limitations - History of Present Illness Initial comments: 31-year-old female presents to the emergency room for a chief complaint of urinary tract infection. Patient states that she is having some pressure with urination. States she can only urinate a small amount at a time. Patient states this feels similar to urinary tract infection she's had in the past. She has not had any fevers or back pain. She denies any concern for STDs.Patient has no other complaints at this time including shortness of breath, chest pain, abdominal pain, nausea or vomiting, headache, or visual changes. - Related Data Previous Rx's Medication Instructions Recorded Cephalexin [Keflex] 500 mg PO Q8HR 7 Days #21 cap 11/29/21 Allergies Allergy/AdvReac Type Severity Reaction Status Date / Time adhesive tape Allergy rash/hives,states Verified 11/29/21 12:28 "paper tape is ok" latex Allergy Rash/Hives Verified 11/29/21 12:28 Review of Systems ROS Statement: Those systems with pertinent positive or pertinent negative responses have been documented in the HPI. ROS Other: All systems not noted in ROS Statement are negative. Past Medical History Past Medical History: No Reported History Additional Past Medical History / Comment(s): "trichomonas" History of Any Multi-Drug Resistant Organisms: None Reported Past Surgical History: Section, Hernia Repair Additional Past Surgical History / Comment(s): Fibroadenoma removed left axilla Past Anesthesia/Blood Transfusion Reactions: No Reported Reaction Additional Past Anesthesia/Blood Transfusion Reaction / Comment(s): no hx blood transfusion Past Psychological History: No Psychological Hx Reported Smoking Status: Current some day smoker Past Alcohol Use History: Occasional Past Drug Use History: Marijuana - Past Family History Mother Family Medical History: No Reported History General Exam Limitations: no limitations General appearance: alert, in no apparent distress Head exam: Present: atraumatic Eye exam: Present: normal appearance, PERRL, EOMI. Absent: scleral icterus, conjunctival injection ENT exam: Present: normal exam, mucous membranes moist Neck exam: Present: normal inspection, full ROM. Absent: tenderness Respiratory exam: Present: normal lung sounds bilaterally. Absent: respiratory distress, wheezes Cardiovascular Exam: Present: regular rate, normal rhythm, normal heart sounds GI/Abdominal exam: Present: soft, normal bowel sounds. Absent: distended, tenderness Neurological exam: Present: alert Course Vital Signs 11/29/21 12:29 Temperature 98.8 F Pulse Rate 103 H Respiratory 18 Rate Blood Pressure 117/74 O2 Sat by Pulse 98 Oximetry Medical Decision Making - Medical Decision Making Vitals are stable. Patient does have 137 white blood cells, 7 squamous cells. Urine will be cultured. Patient will be treated for urinary tract infection. I did also discuss possibility of STD however patient states she does not feel that she has any possibility of having an STD. Gonorrhea and Chlamydia to the urine. Patient has changes in vaginal discharge fevers or abdominal pain she will return to the emergency room for pelvic exam. - Lab Data Lab Results 11/29/21 11/29/21 Range/Units 12:34 12:34 Urine Color Yellow Urine Appearance Cloudy H (Clear) Urine pH 5.5 (5.0-8.0) Ur Specific [place] 1.031 (1.001-1.035) Urine Protein 1+ H (Negative) Urine Glucose (UA) Negative (Negative) Urine Ketones Negative (Negative) Urine Blood Trace H (Negative) Urine Nitrite Negative (Negative) Urine Bilirubin Negative (Negative) Urine Urobilinogen <2.0 (<2.0) mg/dL Ur Leukocyte Esterase Large H (Negative) Urine RBC 20 H (0-5) /hpf Urine WBC 137 H (0-5) /hpf Ur Squamous Epith Cells 7 H (0-4) /hpf Urine Mucus Many H (None) /hpf Urine HCG, Qual Not Detected (Not Detectd) Disposition Clinical Impression: Urinary tract infection Disposition: HOME SELF-CARE Condition: Good Instructions (If sedation given, give patient instructions): Urinary Tract Infection in Women (ED) Additional Instructions: Please follow up with primary care in 1-2 days. Take antibiotic as directed. Return to the ER for any worsening symptoms. Prescriptions: Cephalexin [Keflex] 500 mg PO Q8HR 7 Days #21 cap Is patient prescribed a controlled substance at d/c from ED?: No Referrals: Leidy Lomax MD [Primary Care Provider] - 1-2 days Time of Disposition: 14:35
[2021-11-29 14:45] VITALS: BP 104/69; PULSE 80; RESP 16; TEMP 99
[2021-11-30 14:21] LABS: C. trachomatis,PCR Negative (Neg,Equiv); Chlamydia trachomatis Source Urine; N. gonorrhoeae,PCR Positive (Neg,Equiv); Neisseria Source Urine
== END 2021-11-29 14:49 | disposition home or self-care (01) ==
LOC: EC 12:05
DX: N39.0 Urinary tract infection, site not specified (principal); F17.200 Nicotine dependence, unspecified, uncomplicated; Z91.09 Other allergy status, other than to drugs and biological substances; Z91.040 Latex allergy status
CPT/HCPCS: 81001; 81025; 87086; 87491; 87591; 99283

== ENCOUNTER 2021-11-30 01:38 | Emergency (ER) | payer OTHER ==
[2021-11-30 01:42] VITALS: BP 122/82; PULSE 95; RESP 20; TEMP 98.5
--- NOTE | 2021-11-30 02:37 | ED ---
Female Urogenital HPI - General Chief complaint: Urogenital Stated complaint: Pain Time Seen by Provider: 11/30/21 01:45 Source: patient Mode of arrival: ambulatory Limitations: no limitations - History of Present Illness Initial comments: This 31-year-old female presents to the emergency department with itching, burning, and yellow discharge 2 days. States she was here yesterday and diagnosed with a UTI. She states she has had Trichomonas in the past and had the same symptoms. She states she is sexually active with multiple people. She denies abdominal pain, vaginal pain, shortness of breath, fever, chills, vaginal bleeding. . - Related Data Previous Rx's Medication Instructions Recorded Cephalexin [Keflex] 500 mg PO Q8HR 7 Days #21 cap 11/29/21 metroNIDAZOLE [Flagyl] 500 mg PO BID #14 tab 11/30/21 Allergies Allergy/AdvReac Type Severity Reaction Status Date / Time adhesive tape Allergy rash/hives,states Verified 11/30/21 01:42 "paper tape is ok" latex Allergy Rash/Hives Verified 11/30/21 01:42 Review of Systems ROS Statement: Those systems with pertinent positive or pertinent negative responses have been documented in the HPI. ROS Other: All systems not noted in ROS Statement are negative. Past Medical History Past Medical History: No Reported History Additional Past Medical History / Comment(s): "trichomonas" History of Any Multi-Drug Resistant Organisms: None Reported Past Surgical History: Section, Hernia Repair Additional Past Surgical History / Comment(s): Fibroadenoma removed left axilla Past Anesthesia/Blood Transfusion Reactions: No Reported Reaction Additional Past Anesthesia/Blood Transfusion Reaction / Comment(s): no hx blood transfusion Past Psychological History: No Psychological Hx Reported Smoking Status: Current some day smoker Past Alcohol Use History: Occasional Past Drug Use History: Marijuana - Past Family History Mother Family Medical History: No Reported History General Exam Limitations: no limitations General appearance: alert, in no apparent distress Head exam: Present: atraumatic Eye exam: Present: normal appearance Respiratory exam: Present: normal lung sounds bilaterally. Absent: respiratory distress, wheezes, rales, rhonchi, stridor Cardiovascular Exam: Present: regular rate, normal rhythm, normal heart sounds. Absent: systolic murmur, diastolic murmur, rubs, gallop, clicks GI/Abdominal exam: Present: soft, normal bowel sounds. Absent: distended, tenderness, guarding, rebound, rigid Speculum exam: Present: erythema, vaginal discharge (Yellow), cervical discharge (Yellow). Absent: vaginal bleeding, foreign body, tissue By manual exam: Present: normal by manual exam. Absent: cervical motion tenderness, adnexal tenderness, adnexal mass, uterine tenderness Neurological exam: Present: alert, oriented X3, CN II-XII intact Psychiatric exam: Present: normal affect, normal mood Skin exam: Present: warm, dry, intact, normal color. Absent: rash Course Vital Signs 11/30/21 01:39 Temperature 98.5 F Pulse Rate 95 Respiratory 20 Rate Blood Pressure 122/82 O2 Sat by Pulse 98 Oximetry Medical Decision Making - Medical Decision Making 31-year-old female presents to the emergency department with vaginal itching, burning, yellow discharge. Vaginal exam performed, yellow discharge visualized cervix. No blood visualized. No pain or tenderness to manual exam. No cervical motion tenderness. Patient tested positive for Trichomonas. Other vaginal cultures pending. Will treat patient for Trichomonas, gonorrhea, chlamydia. Patient informed her sexual partners must be treated and abstain from sexual activity for 2 weeks. Patient informed to follow-up with CONSUMER SAFETY OFFICER or primary care provider within one to 2 days. Return precautions discussed. Case reviewed with Dr. Whiting. - Lab Data Lab Results 11/30/21 11/30/21 Range/Units 03:01 03:01 Urine HCG, Qual Not Detected (Not Detectd) Trichomonas Ag (Rapid) Positive H (Negative) Disposition Clinical Impression: Trichomonas vaginitis Disposition: HOME SELF-CARE Condition: Stable Instructions (If sedation given, give patient instructions): Sexually Transmitted Diseases (ED), Trichomoniasis (ED) Additional Instructions: Please return to emergency department as new or worsening symptoms occur. No sexual contact for 2 weeks. All sexual partners must be treated. Do not drink alcohol while taking this medication. Follow-up with CONSUMER SAFETY OFFICER or PCP within 1-2 days. Prescriptions: metroNIDAZOLE [Flagyl] 500 mg PO BID #14 tab Is patient prescribed a controlled substance at d/c from ED?: No Referrals: Leidy Lomax MD [Primary Care Provider] - 1-2 days Time of Disposition: 03:36
[2021-11-30] MEDS: PHENAZOPYRIDINE 200 MG TAB PO STA (03:16)
[2021-11-30] MEDS: cefTRIAXone 1,000 MG VIAL (IM USE) IM STA (03:47)
[2021-11-30] MEDS: metroNIDAZOLE 500 MG TAB PO STA (03:47)
[2021-11-30] MEDS: AZITHROMYCIN 500 MG TAB PO STA (03:47)
[2021-11-30 14:17] LABS: C. trachomatis,PCR Negative (Neg,Equiv); Chlamydia trachomatis Source Vagina; N. gonorrhoeae,PCR Positive (Neg,Equiv); Neisseria Source Vagina
== END 2021-11-30 03:48 | disposition home or self-care (01) ==
LOC: EC 01:38
DX: A59.01 Trichomonal vulvovaginitis (principal); F17.200 Nicotine dependence, unspecified, uncomplicated; Z91.09 Other allergy status, other than to drugs and biological substances; Z91.040 Latex allergy status
CPT/HCPCS: 81025; 87808; 87491; 87591; 87070; 99283; 96372; J0696

== ENCOUNTER → 2022-02-07 | Outpatient (CLI) | payer OTHER ==
--- NOTE | 2022-02-08 07:06 | US ---
EXAMINATION TYPE: Transabdominal DATE OF EXAM: 02/07/2022 4:00 PM COMPARISON: NONE CLINICAL HISTORY: Z36.89 CONFIRM GESTATIONAL AGE AND VIABILITY. EXAM PERFORMED: Transabdominal (TA) EXAM MEASUREMENTS: GESTATIONAL AGE / DATING Physician Established: Not yet established Dates by LMP: (12 weeks/2 days) EDC: 08-20-22 Dates by First Scan: No previous this is first scan Dates by Current Scan for: (13 weeks/4 days) EDC: 08-11-22 MATERNAL ANATOMY Uterus: 15.9 x 6.9 x 8.4cm Right Ovary: 3.5 x 1.7 x 1.9cm Left Ovary: 2.1 x 1.5 x 1.6cm Post CDS / Adnexa: wnl GESTATION / SURVEY CRL: (13 weeks/4 days) Yolk Sac (normal less than 6mm): not seen Heart Rate: 156 bpm Rhythm: Normal IUP: Viable IUP Nuchal Translucency 10-14wks (normal less than 3mm): 2mm Age Appropriate Anatomy Cord Insertion: Visualized Limbs: Visualized Calvarium: Visualized Date of LMP: 11-13-21 Beta HcG (if available): Not available at this time IMPRESSION: Viable early intrauterine of approximately 13 weeks 4 days with an EDC of 08/11/2022 and a h eart rate of 156 bpm.
== END | disposition home or self-care (01) ==
LOC: RADUSWWP 15:38
PROVIDERS: ATTEND Obstetrics & Gynecology
DX: Z33.1 Pregnant state, incidental (principal); Z3A.13 13 weeks gestation of pregnancy
CPT/HCPCS: 76801; 76813

== ENCOUNTER 2022-02-14 05:11 | Emergency (ER) | payer OTHER ==
[2022-02-14 05:45] LABS: Basophils % (A) 0 %; Eosinophils # (A) 0.3 k/uL (0-0.7); Eosinophils % (A) 3 %; HCT 38.3 % (34.0-46.0); HGB 13.1 gm/dL (11.4-16.0); Lymphocytes # (A) 2.2 k/uL (1.0-4.8); Lymphocytes % (A) 30 %; MCH 31.1 pg (25.0-35.0); MCHC 34.3 g/dL (31.0-37.0); MCV 90.7 fL (80.0-100.0); Mean Platelet Volume 7.2; Monocytes # (A) 0.4 k/uL (0-1.0); Monocytes % (A) 6 %; Neutrophils # (A) 4.5 k/uL (1.3-7.7); Neutrophils % (A) 60 %; Platelet Count 304 k/uL (150-450); RBC 4.22 m/uL (3.80-5.40); RDW 13.5 % (11.5-15.5); WBC 7.5 k/uL (3.8-10.6)
[2022-02-14 05:54] LABS: ALT 10 U/L (4-34); AST 16 U/L (14-36); African American GFR (CKD) >90 (>60 ml/min/1.73 sqM); Albumin 3.5 g/dL (3.5-5.0); Alkaline Phosphatase 46 U/L (38-126); Anion Gap 7 mmol/L; Blood Urea Nitrogen 7 mg/dL (7-17); Calcium 8.7 mg/dL (8.4-10.2); Carbon Dioxide 17 mmol/L (22-30); Chloride 108 mmol/L (98-107); Glucose 95 mg/dL (74-99); Non-African American GFR(CKD) >90 (>60 ml/min/1.73 sqM); Potassium 3.9 mmol/L (3.5-5.1); Sodium 132 mmol/L (137-145); Total Bilirubin 0.4 mg/dL (0.2-1.3); Total Protein 6.7 g/dL (6.3-8.2)
[2022-02-14 05:58] LABS: INR 0.9 (<1.2)
[2022-02-14 06:01] LABS: Appearance,Urine Cloudy (Clear); Bacteria,Urine Rare /hpf; Bilirubin,Urine Negative (Negative); Blood,Urine Moderate (Negative); Color,Urine Yellow; Glucose,Urine (UA) Negative (Negative); Hyaline Casts,Urine 1 /lpf (0-2); Ketones,Urine Negative (Negative); Leukocyte Esterase,Urine Small (Negative); Mucus,Urine Moderate /hpf; Nitrite,Urine Negative (Negative); Protein,Urine Trace (Negative); RBC,Urine 2 /hpf (0-5); Specific Gravity,Urine 1.026 (1.001-1.035); Squamous Epithelial Cell,Urine 14 /hpf (0-4); Urobilinogen,Urine <2.0 mg/dL (<2.0); WBC,Urine 3 /hpf (0-5)
[2022-02-14] MEDS ORDERED: HYDROCORTISONE 1% CREAM 30 GM TUBE TOPICAL STA (06:30)
--- NOTE | 2022-02-14 07:01 | ED ---
Female Urogenital HPI - General Chief complaint: Vaginal Bleeding Stated complaint: 14 weeks , bleeding Time Seen by Provider: 02/14/22 05:46 Source: patient, RN notes reviewed Mode of arrival: ambulatory Limitations: no limitations - History of Present Illness Initial comments: 32-year-old female presents emergency Department with chief complaint of vaginal bleeding in . Patient is A0 currently 14 weeks her POLICY ISSUE CLERK is Dr. Urena has not seen her POLICY ISSUE CLERK for this . She states that she had some spotting which showed her some increasing bleeding. She has some low back cramping. Patient denies any dysuria hematuria no nausea vomiting diarrhea constipation no other complaints. - Related Data Previous Rx's Medication Instructions Recorded Cephalexin [Keflex] 500 mg PO Q8HR 7 Days #21 cap 11/29/21 metroNIDAZOLE [Flagyl] 500 mg PO BID #14 tab 11/30/21 Allergies Allergy/AdvReac Type Severity Reaction Status Date / Time adhesive tape Allergy rash/hives,states Verified 02/14/22 05:14 "paper tape is ok" latex Allergy Rash/Hives Verified 02/14/22 05:14 Review of Systems ROS Statement: Those systems with pertinent positive or pertinent negative responses have been documented in the HPI. ROS Other: All systems not noted in ROS Statement are negative. Past Medical History Past Medical History: No Reported History Additional Past Medical History / Comment(s): "trichomonas" History of Any Multi-Drug Resistant Organisms: None Reported Past Surgical History: Section, Hernia Repair Additional Past Surgical History / Comment(s): Fibroadenoma removed left axilla Past Anesthesia/Blood Transfusion Reactions: No Reported Reaction Additional Past Anesthesia/Blood Transfusion Reaction / Comment(s): no hx blood transfusion Past Psychological History: No Psychological Hx Reported Smoking Status: Former smoker Past Alcohol Use History: None Reported Past Drug Use History: None Reported - Past Family History Mother Family Medical History: No Reported History General Exam Limitations: no limitations General appearance: alert, in no apparent distress Head exam: Present: atraumatic, normocephalic, normal inspection Eye exam: Present: normal appearance, PERRL, EOMI. Absent: scleral icterus, conjunctival injection, periorbital swelling Respiratory exam: Present: normal lung sounds bilaterally. Absent: respiratory distress, wheezes, rales, rhonchi, stridor Cardiovascular Exam: Present: normal rhythm, tachycardia, normal heart sounds. Absent: systolic murmur, diastolic murmur, rubs, gallop, clicks GI/Abdominal exam: Present: soft, normal bowel sounds. Absent: distended, tenderness, guarding, rebound, rigid Back exam: Absent: CVA tenderness (R), CVA tenderness (L) Neurological exam: Present: alert Skin exam: Present: warm, dry, intact, normal color. Absent: rash Course Vital Signs 02/14/22 05:15 Temperature 98 F Pulse Rate 122 H Respiratory 18 Rate Blood Pressure 121/74 O2 Sat by Pulse 99 Oximetry Medical Decision Making - Medical Decision Making Ultrasound does not reveal any significant findings. Patient is single viable IUP 13 weeks 6 days. Patient is a positive blood type will be discharged in stable condition return parameters were discussed. - Lab Data Result diagrams: 02/14/22 05:35 02/14/22 05:35 Lab Results 02/14/22 02/14/22 02/14/22 Range/Units 05:35 05:35 05:35 WBC 7.5 (3.8-10.6) k/uL RBC 4.22 (3.80-5.40) m/uL Hgb 13.1 (11.4-16.0) gm/dL Hct 38.3 (34.0-46.0) % MCV 90.7 (80.0-100.0) fL MCH 31.1 (25.0-35.0) pg MCHC 34.3 (31.0-37.0) g/dL RDW 13.5 (11.5-15.5) % Plt Count 304 (150-450) k/uL MPV 7.2 Neutrophils % 60 % Lymphocytes % 30 % Monocytes % 6 % Eosinophils % 3 % Basophils % 0 % Neutrophils # 4.5 (1.3-7.7) k/uL Lymphocytes # 2.2 (1.0-4.8) k/uL Monocytes # 0.4 (0-1.0) k/uL Eosinophils # 0.3 (0-0.7) k/uL Basophils # 0.0 (0-0.2) k/uL PT 10.0 (9.0-12.0) sec INR 0.9 (<1.2) APTT 26.0 (22.0-30.0) sec Sodium (137-145) mmol/L Potassium (3.5-5.1) mmol/L Chloride (98-107) mmol/L Carbon Dioxide (22-30) mmol/L Anion Gap mmol/L BUN (7-17) mg/dL Creatinine (0.52-1.04) mg/dL Est GFR (CKD-EPI)AfAm (>60 ml/min/1.73 sqM) Est GFR (CKD-EPI)NonAf (>60 ml/min/1.73 sqM) Glucose (74-99) mg/dL Calcium (8.4-10.2) mg/dL Total Bilirubin (0.2-1.3) mg/dL AST (14-36) U/L ALT (4-34) U/L Alkaline Phosphatase (38-126) U/L Total Protein (6.3-8.2) g/dL Albumin (3.5-5.0) g/dL HCG, Quant mIU/mL Urine Color Yellow Urine Appearance Cloudy H (Clear) Urine pH 6.0 (5.0-8.0) Ur Specific [place] 1.026 (1.001-1.035) Urine Protein Trace H (Negative) Urine Glucose (UA) Negative (Negative) Urine Ketones Negative (Negative) Urine Blood Moderate H (Negative) Urine Nitrite Negative (Negative) Urine Bilirubin Negative (Negative) Urine Urobilinogen <2.0 (<2.0) mg/dL Ur Leukocyte Esterase Small H (Negative) Urine RBC 2 (0-5) /hpf Urine WBC 3 (0-5) /hpf Ur Squamous Epith Cells 14 H (0-4) /hpf Urine Bacteria Rare H (None) /hpf Hyaline Casts 1 (0-2) /lpf Urine Mucus Moderate H (None) /hpf Blood Type Blood Type Recheck Bld Type Recheck Status 02/14/22 02/14/22 Range/Units 05:35 05:35 WBC (3.8-10.6) k/uL RBC (3.80-5.40) m/uL Hgb (11.4-16.0) gm/dL Hct (34.0-46.0) % MCV (80.0-100.0) fL MCH (25.0-35.0) pg MCHC (31.0-37.0) g/dL RDW (11.5-15.5) % Plt Count (150-450) k/uL MPV Neutrophils % % Lymphocytes % % Monocytes % % Eosinophils % % Basophils % % Neutrophils # (1.3-7.7) k/uL Lymphocytes # (1.0-4.8) k/uL Monocytes # (0-1.0) k/uL Eosinophils # (0-0.7) k/uL Basophils # (0-0.2) k/uL PT (9.0-12.0) sec INR (<1.2) APTT (22.0-30.0) sec Sodium 132 L (137-145) mmol/L Potassium 3.9 (3.5-5.1) mmol/L Chloride 108 H (98-107) mmol/L Carbon Dioxide 17 L (22-30) mmol/L Anion Gap 7 mmol/L BUN 7 (7-17) mg/dL Creatinine 0.54 (0.52-1.04) mg/dL Est GFR (CKD-EPI)AfAm >90 (>60 ml/min/1.73 sqM) Est GFR (CKD-EPI)NonAf >90 (>60 ml/min/1.73 sqM) Glucose 95 (74-99) mg/dL Calcium 8.7 (8.4-10.2) mg/dL Total Bilirubin 0.4 (0.2-1.3) mg/dL AST 16 (14-36) U/L ALT 10 (4-34) U/L Alkaline Phosphatase 46 (38-126) U/L Total Protein 6.7 (6.3-8.2) g/dL Albumin 3.5 (3.5-5.0) g/dL HCG, Quant 00611.7 mIU/mL Urine Color Urine Appearance (Clear) Urine pH (5.0-8.0) Ur Specific [place] (1.001-1.035) Urine Protein (Negative) Urine Glucose (UA) (Negative) Urine Ketones (Negative) Urine Blood (Negative) Urine Nitrite (Negative) Urine Bilirubin (Negative) Urine Urobilinogen (<2.0) mg/dL Ur Leukocyte Esterase (Negative) Urine RBC (0-5) /hpf Urine WBC (0-5) /hpf Ur Squamous Epith Cells (0-4) /hpf Urine Bacteria (None) /hpf Hyaline Casts (0-2) /lpf Urine Mucus (None) /hpf Blood Type A Positive Blood Type Recheck A Pos Bld Type Recheck Status No Disposition Clinical Impression: Vaginal bleeding in Disposition: HOME SELF-CARE Condition: Stable Instructions (If sedation given, give patient instructions): (ED) Additional Instructions: Please return to the Emergency Department if symptoms worsen or any other concerns. Is patient prescribed a controlled substance at d/c from ED?: No Referrals: Leidy Lomax MD [Primary Care Provider] - 1-2 days Time of Disposition: 08:42
[2022-02-14 07:02] LABS: HCG,Quantitative Serum 73076.7 mIU/mL
--- NOTE | 2022-02-14 08:36 | US ---
EXAMINATION TYPE: Transabdominal DATE OF EXAM: 02/14/2022 7:13 AM COMPARISON: NONE CLINICAL HISTORY: pain, bleeding. EXAM PERFORMED: Transabdominal (TA) EXAM MEASUREMENTS: GESTATIONAL AGE / DATING Physician Established: Not yet established Dates by LMP: (13 weeks/2 days) EDC: 08-20-22 Dates by First Scan: No previous this is first scan Dates by Current Scan for:(13 weeks/6 days) EDC: 08-16-22 MATERNAL ANATOMY Uterus: 17.5 x 7.7 x 10.6cm Right Ovary: 3.1 x 2.1 x 2.1cm Left Ovary: obscured by overlying bowel Post CDS / Adnexa: wnl Presence of free fluid: no GESTATION / SURVEY CRL: 7.7cm (13 weeks/6 days) Yolk Sac (normal less than 6mm): not seen Heart Rate: 149 bpm Rhythm: Normal IUP: Viable IUP Age Appropriate Anatomy Cord Insertion: Visualized Limbs: Visualized Calvarium: Visualized Date of LMP: 11-13-22 Beta HcG (if available): Not available at this time IMPRESSION: Single viable intrauterine noted.
[2022-02-14 08:52] VITALS: BP 104/72; PULSE 98; RESP 16; TEMP 98.7
== END 2022-02-14 08:52 | disposition home or self-care (01) ==
LOC: EC 05:11
DX: O26.852 Spotting complicating pregnancy, second trimester (principal); Z91.040 Latex allergy status; Z91.048 Other nonmedicinal substance allergy status; Z87.891 Personal history of nicotine dependence; Z3A.14 14 weeks gestation of pregnancy
CPT/HCPCS: 36415; 76801; 80053; 81001; 84702; 85025; 85610; 85730; 86900; 86901; 99284

== ENCOUNTER 2022-04-04 14:32 | Emergency (ER) | payer OTHER ==
[2022-04-04] MEDS ORDERED: ACETAMINOPHEN TAB 325 MG TAB PO STA (16:09)
--- NOTE | 2022-04-04 16:12 | ED ---
General Adult HPI - General Chief complaint: Fever Stated complaint: Sick, Upper Resp Issues Time Seen by Provider: 04/04/22 15:46 Source: patient Mode of arrival: ambulatory Limitations: no limitations - History of Present Illness Initial comments: This 32-year-old female who is 20 weeks presents emergency Department with fever, cough, chills, nasal congestion, body aches that presented yesterday. Patient states she has not experienced this before. She denies taking any medications for fever or pain relief. Patient states she does have body aches and a little bit of a decreased appetite. Patient states she has been eating and drinking and trended down plenty of water. Patient denies any vomiting but states she did fill little bit nauseous. Patient denies any vaginal bleeding or vaginal discharge. Patient denies any chest pain, shortness of breath, abdominal pain, change in bowel or bladder, lightheadedness, dizziness, headache, change in vision, total breathing, trouble swallowing. - Related Data Home Medications Medication Instructions Recorded Confirmed No Known Home Medications 02/14/22 02/14/22 Allergies Allergy/AdvReac Type Severity Reaction Status Date / Time adhesive tape Allergy rash/hives,states Verified 04/04/22 14:58 "paper tape is ok" latex Allergy Rash/Hives Verified 04/04/22 14:58 Review of Systems ROS Statement: Those systems with pertinent positive or pertinent negative responses have been documented in the HPI. ROS Other: All systems not noted in ROS Statement are negative. Past Medical History Past Medical History: No Reported History Additional Past Medical History / Comment(s): "trichomonas" History of Any Multi-Drug Resistant Organisms: None Reported Past Surgical History: Section, Hernia Repair Additional Past Surgical History / Comment(s): Fibroadenoma removed left axilla Past Anesthesia/Blood Transfusion Reactions: No Reported Reaction Additional Past Anesthesia/Blood Transfusion Reaction / Comment(s): no hx blood transfusion Past Psychological History: No Psychological Hx Reported Smoking Status: Former smoker Past Alcohol Use History: None Reported Past Drug Use History: None Reported - Past Family History Mother Family Medical History: No Reported History General Exam Limitations: no limitations General appearance: alert, in no apparent distress Head exam: Present: atraumatic, normocephalic, normal inspection Eye exam: Present: normal appearance, PERRL, EOMI. Absent: scleral icterus, conjunctival injection, periorbital swelling Pupils: Present: normal accommodation ENT exam: Present: normal exam, normal oropharynx (Uvula midline. No tonsillar exudates or abscesses visualized. No erythema in posterior oropharynx), mucous membranes moist Neck exam: Present: normal inspection. Absent: tenderness, meningismus, lymphadenopathy Respiratory exam: Present: normal lung sounds bilaterally. Absent: respiratory distress, wheezes, rales, rhonchi, stridor, chest wall tenderness Cardiovascular Exam: Present: regular rate, normal rhythm, normal heart sounds. Absent: systolic murmur, diastolic murmur, rubs, gallop, clicks GI/Abdominal exam: Present: soft, normal bowel sounds. Absent: distended, tenderness, guarding, rebound, rigid Extremities exam: Present: normal inspection, full ROM, normal capillary refill. Absent: tenderness, pedal edema, joint swelling, calf tenderness Back exam: Present: normal inspection, full ROM. Absent: CVA tenderness (R), CVA tenderness (L), paraspinal tenderness, vertebral tenderness Neurological exam: Present: alert, oriented X3, CN II-XII intact Psychiatric exam: Present: normal affect, normal mood Skin exam: Present: warm, dry, intact, normal color. Absent: rash Course Vital Signs 04/04/22 04/04/22 04/04/22 14:56 15:44 16:59 Temperature 101.7 F H 99.0 F Pulse Rate 123 H 102 H Respiratory 20 24 20 Rate Blood Pressure 91/60 106/72 O2 Sat by Pulse 98 97 Oximetry Medical Decision Making - Medical Decision Making This 32-year-old female presents emergency department with cough, chills, fever and body aches that began yesterday. Patient tested positive for influenza A. Patient given Tylenol here in the emergency department and instructed to take as directed at home for fever and body aches. OB did come and stated that heart tones are present and within normal limits. Instructed patient to follow- up with her EMPLOYEE COMMUNICATIONS MANAGER and primary care provider in next 1-2 days. Patient verbally agreed to plan. Patient sent home in stable condition. Case discussed in detail with my attending - Lab Data Lab Results 04/04/22 04/04/22 Range/Units 15:06 15:06 Coronavirus (PCR) Not Detected (Not Detectd) Influenza Type A RNA Detected H (Not Detectd) Influenza Type B (PCR) Not Detected (Not Detectd) Disposition Clinical Impression: Influenza Disposition: HOME SELF-CARE Condition: Stable Instructions (If sedation given, give patient instructions): Influenza (ED) Additional Instructions: Please take Tylenol as directed for body aches and fever relief. Follow-up with EMPLOYEE COMMUNICATIONS MANAGER and primary care in the next 1-2 days. Return to the emergency department with any new, worsening, or concerning symptoms. Is patient prescribed a controlled substance at d/c from ED?: No Referrals: Leidy Lomax MD [Primary Care Provider] - 1-2 days Time of Disposition: 16:43
[2022-04-04 16:59] VITALS: BP 106/72; PULSE 102; RESP 20; TEMP 99
== END 2022-04-04 17:05 | disposition home or self-care (01) ==
LOC: EC 14:32
DX: J10.1 Influenza due to other identified influenza virus with other respiratory manifestations (principal); Z87.891 Personal history of nicotine dependence; Z20.822 Contact with and (suspected) exposure to COVID-19; Z91.048 Other nonmedicinal substance allergy status; Z91.040 Latex allergy status
CPT/HCPCS: 87502; 87635; 99284

== ENCOUNTER 2022-04-12 02:31 | Emergency (ER) | payer OTHER ==
[2022-04-12 02:43] VITALS: BP 112/75; PULSE 98; RESP 19; TEMP 97.8
[2022-04-12] MEDS ORDERED: ACETAMINOPHEN TAB 500 MG TAB PO STA (03:20)
[2022-04-12] MEDS ORDERED: AMOXIC-POT CLAV 875-125MG 1 EACH TAB PO STA (03:34)
--- NOTE | 2022-04-12 03:39 | ED ---
General Adult HPI - General Chief complaint: Urogenital Stated complaint: Female Time Seen by Provider: 04/12/22 02:45 Source: patient, RN notes reviewed Mode of arrival: ambulatory - History of Present Illness Initial comments: 32-year-old female, 22 weeks , presents to the emergency department for evaluation of a sore swollen area to the right labia. Patient has a known prior Bartholin's cyst that is open and draining. Patient states the drainage is causing irritation on her skin therefore she applied Vaseline. Complains of moderate amount of discomfort, though states that it is tolerable. Reports that she is taking cephalexin as prescribed by her OB. Denies fever, chills, headache, chest pain, shortness of breath, abdominal pain, abdominal cramping, v aginal bleeding, discharge, or dysuria. - Related Data Previous Rx's Medication Instructions Recorded Amoxicillin/Potassium Clav 1 tab PO Q12HR #20 tab 04/12/22 [Augmentin 875-125 Tablet] Allergies Allergy/AdvReac Type Severity Reaction Status Date / Time adhesive tape Allergy rash/hives,states Verified 04/12/22 02:42 "paper tape is ok" latex Allergy Rash/Hives Verified 04/12/22 02:42 Review of Systems ROS Statement: Those systems with pertinent positive or pertinent negative responses have been documented in the HPI. ROS Other: All systems not noted in ROS Statement are negative. Past Medical History Past Medical History: No Reported History Additional Past Medical History / Comment(s): "trichomonas", uterine cysts History of Any Multi-Drug Resistant Organisms: None Reported Past Surgical History: Section, Hernia Repair Additional Past Surgical History / Comment(s): Fibroadenoma removed left axilla Past Anesthesia/Blood Transfusion Reactions: No Reported Reaction Additional Past Anesthesia/Blood Transfusion Reaction / Comment(s): no hx blood transfusion Past Psychological History: No Psychological Hx Reported Smoking Status: Former smoker Past Alcohol Use History: None Reported Past Drug Use History: None Reported - Past Family History Mother Family Medical History: No Reported History General Exam Limitations: no limitations (Well-developed, well-nourished female in no acute distress. Initial temperature 97.8, pulse 98, respirations 19, blood pressure 112/75, pulse ox 100% on room air.) General appearance: alert, in no apparent distress Respiratory exam: Present: normal lung sounds bilaterally. Absent: respiratory distress, wheezes, rales, rhonchi, stridor Cardiovascular Exam: Present: regular rate, normal rhythm, normal heart sounds. Absent: systolic murmur, diastolic murmur, rubs, gallop, clicks GI/Abdominal exam: Present: soft, normal bowel sounds. Absent: distended, tenderness, guarding, rebound, rigid External exam: Present: erythema, swelling (Mildly erythematous, swollen right labia. Small open area draining thin brownish discharge. Site is soft and minimally tender. No vaginal irritation or skin breakdown noted) Neurological exam: Present: alert, oriented X3 Psychiatric exam: Present: normal affect, normal mood Skin exam: Present: warm, dry, normal color Course Vital Signs 04/12/22 02:37 Temperature 97.8 F Pulse Rate 98 Respiratory 19 Rate Blood Pressure 112/75 O2 Sat by Pulse 100 Oximetry - Reevaluation(s) Reevaluation #1: 04/12/22 03:30 Discussed antibiotic options with pharmacy and my attending. Augmentin was recommended in addition to continuing on cephalexin. Plan of care discussed with patient. She is agreeable. Medical Decision Making - Medical Decision Making This is a pleasant 22 week 32-year-old female presents to the emergency department for evaluation of bartholin cyst infection, which is a recurrent issue for her. Upon exam, patient is well-appearing and in no acute distress. She is currently on cephalexin due to this abscess. States it began draining yesterday. Site is soft and minimally tender. Right labia is mildly swollen and erythematous. She was given Tylenol for discomfort. Patient is instructed on site cleansing including sitz baths and antibacterial rinse. Instructed to continue on cephalexin as prescribed and will add Augmentin in addition. Patient is encouraged to call her OB tomorrow to schedule a follow-up appointment to be seen in the office for further evaluation and treatment of this cyst. Return parameters were discussed in detail. Patient verbalizes understanding and agrees with this plan. Attending: Johanne. Disposition Clinical Impression: Abscess of right Bartholin's gland Disposition: HOME SELF-CARE Condition: Stable Instructions (If sedation given, give patient instructions): Bartholin Cyst (ED) Additional Instructions: Continue Taking cephalexin as prescribed by your OB. Add Augmentin twice daily. You may take Tylenol if needed for pain. As this cyst is open and draining, apply warm compresses and/or rinse with warm water and antibacterial soap daily. Please call your OB provider to schedule a follow up appointment to be seen early next week. Return to the emergency department if you develop increased pain, fever, or any worsening of your condition. Prescriptions: Amoxicillin/Potassium Clav [Augmentin 875-125 Tablet] 1 tab PO Q12HR #20 tab Is patient prescribed a controlled substance at d/c from ED?: No Referrals: Leidy Lomax MD [Primary Care Provider] - 1-2 days Selma Jolly DO [Doctor of Osteopathic Medicine] - 1-2 days Time of Disposition: 03:38
== END 2022-04-12 04:33 | disposition home or self-care (01) ==
LOC: EC 02:31
DX: N75.1 Abscess of Bartholin's gland (principal); F17.200 Nicotine dependence, unspecified, uncomplicated; Z91.040 Latex allergy status

== ENCOUNTER 2022-05-05 15:38 | Emergency (ER) | payer OTHER ==
[2022-05-05 15:43] VITALS: TEMP 98.2
--- NOTE | 2022-05-05 17:16 | ED ---
General Adult HPI - General Source: patient, RN notes reviewed, old records reviewed Mode of arrival: ambulatory Limitations: no limitations - History of Present Illness -: days(s) (2) Location: genitals (right labia) Severity scale (1-10): 8 Quality: constant Consistency: constant Improves with: none Worsens with: other (palpation) Associated Symptoms: denies other symptoms Treatments Prior to Arrival: none <Ej Chandra - Last Filed: 05/05/22 17:42> <Lorin Ontiveros - Last Filed: 05/08/22 23:30> - General Chief complaint: Skin/Abscess/Foreign Body Stated complaint: Vaginal cyst Time Seen by Provider: 05/05/22 17:00 - History of Present Illness Initial comments: Pleasant 32-year-old female presents to the emergency room with recurrent right labial abscesses. Patient did call her [facility] stating she has had this one since and he did call her in a prescription for Keflex. She has not picked up the prescription. She states that the swelling is worse today so she came to the emergency room to have it drained. She denies any fevers, no nausea, vomiting or diarrhea. She used to see Dr. Hanley who recommended surgical procedure however he is no longer her doctor and she is now seeing Dr. Murphy. She is 6 months currently, no concerns with . She is having no abdominal pain or vaginal bleeding. (Ej Chandra) - Related Data Previous Rx's Medication Instructions Recorded Amoxicillin/Potassium Clav 1 tab PO Q12HR #20 tab 04/12/22 [Augmentin 875-125 Tablet] Allergies Allergy/AdvReac Type Severity Reaction Status Date / Time adhesive tape Allergy rash/hives,states Verified 05/05/22 15:43 "paper tape is ok" latex Allergy Rash/Hives Verified 05/05/22 15:43 Review of Systems ROS Other: All systems not noted in ROS Statement are negative. <Ej Chandra - Last Filed: 05/05/22 17:42> ROS Other: All systems not noted in ROS Statement are negative. <Lroin Ontiveros - Last Filed: 05/08/22 23:30> ROS Statement: Those systems with pertinent positive or pertinent negative responses have been documented in the HPI. Past Medical History Past Medical History: No Reported History Additional Past Medical History / Comment(s): "trichomonas", uterine cysts, vaginal abscess. History of Any Multi-Drug Resistant Organisms: None Reported Past Surgical History: Section, Hernia Repair Additional Past Surgical History / Comment(s): Fibroadenoma removed left axilla Past Anesthesia/Blood Transfusion Reactions: No Reported Reaction Additional Past Anesthesia/Blood Transfusion Reaction / Comment(s): no hx blood transfusion Past Psychological History: No Psychological Hx Reported Smoking Status: Former smoker Past Alcohol Use History: None Reported Past Drug Use History: None Reported - Past Family History Mother Family Medical History: No Reported History <Ej Chandra - Last Filed: 05/05/22 17:42> General Exam Limitations: no limitations General appearance: alert, in no apparent distress Eye exam: Present: normal appearance Respiratory exam: Absent: respiratory distress, accessory muscle use Cardiovascular Exam: Present: regular rate GI/Abdominal exam: Present: soft. Absent: tenderness External exam: Present: erythema, swelling (Right labia, on ultrasound large pocket of fluid noted). Absent: lesions, lacerations Extremities exam: Present: normal capillary refill. Absent: pedal edema Neurological exam: Present: alert, oriented X3, normal gait Psychiatric exam: Present: normal affect, normal mood Skin exam: Present: warm, dry, normal color. Absent: cyanosis, diaphoretic, pallor <Ej Chandra - Last Filed: 05/05/22 17:42> Course Vital Signs 05/05/22 05/05/22 15:40 18:03 Temperature 98.2 F Pulse Rate 91 81 Respiratory 18 17 Rate Blood Pressure 104/67 131/86 O2 Sat by Pulse 98 98 Oximetry Procedures - Incision & Drainage Consent Obtained: verbal consent Site: vulva/vagina (right labia) Anesthetic Used: lidocaine 1% I&D Cleaning Method: Betadine Scalpel Used: #11 I&D Drainage Obtained: Pus, Blood Culture Obtained?: Yes Patient Tolerated Procedure: well <Ej Chandra - Last Filed: 05/05/22 17:42> Medical Decision Making <Ej Chandra - Last Filed: 05/05/22 17:42> <Lorin Ontiveros - Last Filed: 05/08/22 23:30> - Medical Decision Making Dr. Ontiveros at bedside ultrasound was done and a large pocket was noted. I&D performed. Copious amounts of yellow-green purulent drainage obtained . Culture was sent. Patient's stating much pain relief after incision and drainage. Patient was already called in a prescription for Keflex by her [facility] today which she has not picked up yet. She was instructed to warehouse picker today and take it as prescribed and follow-up with him next week. Sitz baths multiple times daily. Return to emergency room with any new or concerning symptoms including increased pain or fevers. Patient is agreeable to this plan of care. (Ej Chandra) I assisted in ultrasounding the patient. (Lorin Ontiveros) Disposition Is patient prescribed a controlled substance at d/c from ED?: No Time of Disposition: 17:27 <Ej Chandra - Last Filed: 05/05/22 17:42> <Lorin Ontiveros - Last Filed: 05/08/22 23:30> Clinical Impression: Pilonidal cyst with abscess Disposition: HOME SELF-CARE Condition: Good Instructions (If sedation given, give patient instructions): Abscess Incision and Drainage (ED), Sitz Bath (DC) Additional Instructions: Take antibiotics as prescribed by your [facility]. Discuss with your doctor surgical procedure to prevent recurrence. Use sitz baths. Follow-up with your [facility] next week. Return to the emergency room with any new or concerning symptoms including increased pain or fevers. Referrals: Leidy Lomax MD [Primary Care Provider] - 1-2 days Kaushik uMrphy MD [STAFF PHYSICIAN] - 1-2 days
[2022-05-05] MEDS ORDERED: LIDOCAINE 1% INJ 10MG/ML (10 ML MDV) SQ ONE (17:39)
[2022-05-05 18:09] VITALS: BP 131/86; PULSE 81; RESP 17
== END 2022-05-05 18:09 | disposition home or self-care (01) ==
LOC: EC 15:38
DX: L05.01 Pilonidal cyst with abscess (principal); Z91.040 Latex allergy status; Z91.048 Other nonmedicinal substance allergy status
CPT/HCPCS: 87070; 87205; 10060; 99282; J2001

== ENCOUNTER 2022-06-29 00:13 | Outpatient (CLI) | payer OTHER ==
[2022-06-29 01:29] VITALS: BP 120/62; PULSE 102; RESP 18; TEMP 97.5
--- NOTE | 2022-06-29 17:16 | P.MSEPDOC ---
Presenting Problems - Arrival Data Date of Arrival on Unit: 06/29/22 Time of Arrival on Unit: 00:13 Mode of Transport: Wheelchair - Complaint OB-Reason for Admission/Chief Complaint: Possible Onset of Labor Medical History - Information : 3 Para: 2 Term: 2 : 0 Abortions: Spontaneous or Elective: 0 Number of Living Children: 2 - Gestational Age Gestational Age by VOLODYMYR (wks/days): 33 Weeks and 0 Days - History Complications: Prior Review of Systems - Review of Systems Constitutional: No problems Breast: No problems ENT: No problems Cardiovascular: No problems Respiratory: No problems Gastrointestinal: No problems Genitourinary: No problems Musculoskeletal: No problems Neurological: No problems Skin: No problems Vital Signs - Temperature Temperature: 97.5 F Temperature Source: Oral - Pulse Pulse Oximetery Pulse Rate: 102 Pulse Assessment Method: Pulse Oximetry - Respirations Respiratory Rate: 18 Oxygen Delivery Method: Room Air O2 Sat by Pulse Oximetry: 98 - Blood Pressure Right Arm Blood Pressure: 120/62 Blood Pressure Mean: 81 Blood Pressure Source: Automatic Cuff Medical Screen Scoring - Cervical Exam Dilation (cm): 0 Membranes: Intact - Assessment - Baby A Baseline FHR: 135 Heart Rate - NICHD Category: Category I (Normal) NST: Reactive Physician Notification - Physician Notified Physician Notified Date: 06/29/22 Physician Notified Time: 00:30 Physician: Kaushik Murphy New Order Received: Yes - Notification Comment Comment: Pt presents to triage with c/o abdominal cramping that has increased with. intensity starting on 06/28/22 at 2000, with nausea as well. Pt denies any complications this . She has had 2 prior C/S. RN reported to Dr. Logan walden pt's reason for visit to [facility], FHTs category 1, no. cxns noted on monitor or per palpation. Abdomen soft, non-tender. Pt states that she has not felt any cxns since she has been here. RN to collect FFN and check pt's cervix; if cervix is closed, FFN does not need to be sent. Cervix closed, thin, anterior. Reactive NST, no cxns felt per patient. Pt to [place] home with previously scheduled. apt with Dr. Jolly. Maternal Triage Index - Maternal Triage Index Presenting for scheduled procedure w/no complaint: No - Stat/Priority 1 Stat Priority 1: No - Urgent/Priority 2 Urgent Priority 2: Yes Provider Notified: Kaushik Murphy Provider Notified Time: 00:30 Criteria Met for Priority 2: <34 weeks with c/o cxns; prior c/s x2 Disposition - Disposition OB Disposition: Discharge to home Discharge Date: 06/29/22 Discharge Time: 00:55 I agree with the RN Medical Screening Exam: Yes Case reviewed; plan agreed upon as documented in EMR&OBIX.: Yes Diagnosis: FALSE LABOR BEFORE 37 COMPLETED WEEKS OF GEST, THIRD TRI
== END 2022-06-29 00:55 | disposition home or self-care (01) ==
LOC: FBPOP 00:13
PROVIDERS: ATTEND Obstetrics & Gynecology
DX: O47.03 False labor before 37 completed weeks of gestation, third trimester (principal); Z3A.33 33 weeks gestation of pregnancy; Z91.048 Other nonmedicinal substance allergy status; Z91.040 Latex allergy status
CPT/HCPCS: 59025; G0463; 99213

== ENCOUNTER → 2022-07-30 | Outpatient (CLI) | payer OTHER ==
--- NOTE | 2022-07-31 06:39 | P.MSEPDOC ---
Presenting Problems - Arrival Data Date of Arrival on Unit: 07/30/22 Time of Arrival on Unit: 18:31 Mode of Transport: Wheelchair - Complaint OB-Reason for Admission/Chief Complaint: Possible Onset of Labor Comment: Pt reports irregular UC's x2 hours Medical History - Information : 3 Para: 2 Term: 2 : 0 Abortions: Spontaneous or Elective: 0 Number of Living Children: 2 - Gestational Age Gestational Age by VOLODYMYR (wks/days): 37 Weeks and 3 Days Review of Systems - Review of Systems Constitutional: No problems Breast: No problems ENT: No problems Cardiovascular: No problems Respiratory: No problems Gastrointestinal: No problems Genitourinary: No problems Musculoskeletal: No problems Neurological: No problems Skin: No problems Medical Screen Scoring - Cervical Exam Membranes: Intact - Assessment - Baby A Baseline FHR: 130 Heart Rate - NICHD Category: Category I (Normal) NST: Reactive Physician Notification - Physician Notified Physician Notified Date: 07/30/22 Physician Notified Time: 20:28 Physician: Kaushik Murphy New Order Received: Yes (D/C home) - Notification Comment Comment: Dr. Murphy notified of pt's arrival to triage, report given including maternal. and assessment and SVE x2 unchanged. Pt okay to D/C home at this time. RN to. discuss POC with pt. Maternal Triage Index - Maternal Triage Index Presenting for scheduled procedure w/no complaint: No - Stat/Priority 1 Stat Priority 1: No - Urgent/Priority 2 Urgent Priority 2: No - Prompt/Priority 3 Prompt Priority 3: No - Non-Urgent/Priority 4 Non-Urgent Priority 4: Yes Criteria Met for Priority 4: Pt is a with VOLODYMYR 08/17/22 here at 37.3 weeks of gestation with c/o irregular UC's x2 hours. Pt reports the UC's as uncomfortable tightening. Disposition - Disposition OB Disposition: Discharge to home Discharge Date: 07/30/22 Discharge Time: 20:37 I agree with the RN Medical Screening Exam: Yes Case reviewed; plan agreed upon as documented in EMR&OBIX.: Yes Diagnosis: FALSE LABOR AT OR AFTER 37 COMPLETED WEEKS OF GESTATION
== END | disposition home or self-care (01) ==
LOC: FBPOP 18:31
PROVIDERS: ATTEND Obstetrics & Gynecology
DX: O47.1 False labor at or after 37 completed weeks of gestation (principal); Z3A.37 37 weeks gestation of pregnancy
CPT/HCPCS: 59025; G0463; 99213

== ENCOUNTER 2022-08-03 20:30 | Emergency (ER) | payer OTHER ==
[2022-08-03 21:20] VITALS: BP 113/72; PULSE 91; RESP 18; TEMP 98.4
--- NOTE | 2022-08-03 23:39 | ED ---
General Adult HPI - General Chief complaint: ENT Stated complaint: Sore throat-32 weeks preg Time Seen by Provider: 08/03/22 23:20 Source: patient, RN notes reviewed, old records reviewed Mode of arrival: ambulatory - History of Present Illness Initial comments: Patient is a 32-year-old female with history. Past medical history presents with Department complaining of a sore throat and mild sinus pressure. Has rhinorrhea. Nonproductive cough. No fevers. No chills. Has a positive COVID- 19 exposure. Was not vaccinated. Is seeking COVID-19 testing and possible strep throat testing. Is currently 38 weeks . Denies abdominal pain, nausea, vomiting, vaginal discharge or bleeding. No urinary complaints. Is on vitamins. Has follow up with her OB next week. No other acute complaint. Does endorse movements. Presents for URI testing. - Related Data Home Medications Medication Instructions Recorded Confirmed Vit No.179/Iron/Folic 1 tab PO DAILY 06/29/22 07/30/22 [ Tablet] Allergies Allergy/AdvReac Type Severity Reaction Status Date / Time adhesive tape Allergy rash/hives,states Verified 08/03/22 21:20 "paper tape is ok" latex Allergy Rash/Hives Verified 08/03/22 21:20 Review of Systems ROS Statement: Those systems with pertinent positive or pertinent negative responses have been documented in the HPI. Review of Systems: CONST: Denies fever EYES: Denies blurry vision ENT: Endorses nasal congestion C/V: Denies Chest pain RESP: Denies shortness of breath GI: Denies abdominal pain : Denies dysuria SKIN: Denies rash. MSK: Denies joint pain. NEURO: Denies headache ROS Other: All systems not noted in ROS Statement are negative. Past Medical History Past Medical History: No Reported History Additional Past Medical History / Comment(s): "trichomonas", uterine cysts, vaginal abscess. History of Any Multi-Drug Resistant Organisms: None Reported Past Surgical History: Section, Hernia Repair Additional Past Surgical History / Comment(s): Fibroadenoma removed left axilla Past Anesthesia/Blood Transfusion Reactions: No Reported Reaction Additional Past Anesthesia/Blood Transfusion Reaction / Comment(s): no hx blood transfusion Past Psychological History: No Psychological Hx Reported Smoking Status: Never smoker - Past Family History Mother Family Medical History: No Reported History General Exam - General Exam Comments Initial Comments: General: Appears in no acute distress. HEAD: Normal with no signs of head trauma. EYES: PERRLA, EOMI, conjunctiva normal, no discharge. ENT: Hearing grossly intact, normal oropharynx. RESPIRATORY: Clear breath sounds bilaterally. No wheezes, rales, or rhonchi. No hypoxia. No respiratory distress. C/V: Regular rate and rhythm. S1 and S2 auscultated. Peripheral pulses 2+ and intact throughout. ABD: Gravid uterus. Nontender. EXT: Normal range of motion, no obvious deformity SKIN: No rashes or lesions observed on exposed skin. NEURO: Alert and oriented 4. Course Vital Signs 08/03/22 21:16 Temperature 98.4 F Pulse Rate 91 Respiratory 18 Rate Blood Pressure 113/72 O2 Sat by Pulse 97 Oximetry Medical Decision Making - Medical Decision Making Based on the patient's presentation and physical exam patient presents for upper respiratory infection and is seeking testing. His no red flag symptoms. No respiratory distress. Testing was completed by the patient was in triage. Strep throat is negative. Covid is negative. She has no abdominal complaints. No complications with the . Positive movements. Has a positive COVID-19 exposure. Concern for possible Covid positive. She is in no respiratory distress. Vital signs are within normal limits. I discussed results with her. I believe it is safer to be discharged home. She was in agreement this plan. Symptomatic management. Did recommend isolating from the sick contact, as well as obtaining home testing to continue to monitor her Covid status. She was in agreement this plan. I instructed the patient to follow up with their PCP in the next 1-3 days. I explained that the patient should return to the emergency department if they experience any worsening symptoms. Strict return precautions were discussed with the patient. The patient expressed understanding of these instructions. I answered all questions that the patient had. The patient was discharged home in good condition with their prescriptions and follow up information. - Lab Data Lab Results 08/03/22 08/03/22 Range/Units 21:21 21:21 Coronavirus (PCR) Not Detected (Not Detectd) Group A Strep (PCR) NOT DETECTED (Not Detectd) Disposition Clinical Impression: URI (upper respiratory infection) Disposition: HOME SELF-CARE Condition: Good Instructions (If sedation given, give patient instructions): Upper Respiratory Infection (ED) Is patient prescribed a controlled substance at d/c from ED?: No Referrals: Leidy Lomax MD [Primary Care Provider] - 1-2 days Time of Disposition: 23:39
== END 2022-08-03 23:51 | disposition home or self-care (01) ==
LOC: EC 20:30
DX: O99.513 Diseases of the respiratory system complicating pregnancy, third trimester (principal); J06.9 Acute upper respiratory infection, unspecified; Z20.822 Contact with and (suspected) exposure to COVID-19; Z3A.38 38 weeks gestation of pregnancy; Z91.048 Other nonmedicinal substance allergy status; Z91.040 Latex allergy status
CPT/HCPCS: 87635; 87651; 99283

== ENCOUNTER 2022-08-06 17:15 | Emergency (ER) | payer OTHER ==
[2022-08-06 18:55] VITALS: BP 113/72; PULSE 74; RESP 16; TEMP 98.9
--- NOTE | 2022-08-06 21:07 | ED ---
URI HPI - General Chief Complaint: Upper Respiratory Infection Stated Complaint: Needs covid screening Time Seen by Provider: 08/06/22 19:07 Source: patient Mode of arrival: ambulatory Limitations: no limitations - History of Present Illness Initial Comments: Patient is a 32-year-old female currently 39 weeks presenting with chief complaint of congestion. Patient states she has had congestion for the last 4 days, her sister who she lives with his currently positive for Covid and she is requesting Covid test. Patient is denying fever, chills, nausea, vomiting, chest pain, shortness of breath, headache, vision or hearing changes, neck pain or stiffness, abdominal or pelvic pain, vaginal bleeding or discharge, sore throat, cough, ear or sinus pain. - Related Data Home Medications Medication Instructions Recorded Confirmed Vit No.179/Iron/Folic 1 tab PO DAILY 06/29/22 08/06/22 [ Tablet] Allergies Allergy/AdvReac Type Severity Reaction Status Date / Time adhesive tape Allergy rash/hives,states Verified 08/06/22 20:21 "paper tape is ok" latex Allergy Rash/Hives Verified 08/06/22 20:21 Review of Systems ROS Statement: Those systems with pertinent positive or pertinent negative responses have been documented in the HPI. ROS Other: All systems not noted in ROS Statement are negative. Past Medical History Past Medical History: No Reported History Additional Past Medical History / Comment(s): "trichomonas", uterine cysts, vaginal abscess. History of Any Multi-Drug Resistant Organisms: None Reported Past Surgical History: Section, Hernia Repair Additional Past Surgical History / Comment(s): Fibroadenoma removed left axilla Past Anesthesia/Blood Transfusion Reactions: No Reported Reaction Additional Past Anesthesia/Blood Transfusion Reaction / Comment(s): no hx blood transfusion Past Psychological History: No Psychological Hx Reported Smoking Status: Never smoker Past Alcohol Use History: None Reported Past Drug Use History: None Reported - Past Family History Mother Family Medical History: No Reported History General Exam Limitations: no limitations General appearance: alert, in no apparent distress Head exam: Present: atraumatic, normocephalic, normal inspection Eye exam: Present: normal appearance, EOMI. Absent: scleral icterus, periorbital swelling Neck exam: Present: normal inspection Respiratory exam: Present: normal lung sounds bilaterally. Absent: respiratory distress, wheezes, rales, rhonchi, stridor Cardiovascular Exam: Present: regular rate, normal rhythm, normal heart sounds. Absent: systolic murmur, diastolic murmur, rubs, gallop, clicks Neurological exam: Present: alert, oriented X3, CN II-XII intact Psychiatric exam: Present: normal affect, normal mood Skin exam: Present: warm, dry, intact, normal color. Absent: rash Course Vital Signs 08/06/22 18:52 Temperature 98.9 F Pulse Rate 74 Respiratory 16 Rate Blood Pressure 113/72 O2 Sat by Pulse 98 Oximetry Medical Decision Making - Medical Decision Making Patient is a 32-year-old female currently 39 weeks presenting with chief complaint of congestion. She is requesting Covid test. Physical examination is WNL and vitals are stable. Patient is positive for Covid. I discussed quarantine guidelines and supportive treatment appropriate and . Patient declined monoclonal antibody treatment at this time. Follow-up with OBGYN. Report back to ER with any new or worsening symptoms. Discussed return parameters and answered all questions. Patient conveyed verbal understanding and agreed to the plan. I discussed this case in detail with my attending Dr. Foley - Lab Data Lab Results 08/06/22 Range/Units 18:57 Coronavirus (PCR) Detected A (Not Detectd) Disposition Clinical Impression: COVID Disposition: HOME SELF-CARE Condition: Good Instructions (If sedation given, give patient instructions): COVID-19 (Coronavirus Disease 2019) (ED) Additional Instructions: Follow-up with [facility] in one to 2 days. Report back to ER with any new or worsening symptoms. You can take Mucinex DM to help with her symptoms. Stay well-hydrated and get plenty of rest. Quarantine at home for 5 days starting from the first day of your symptoms, this is then followed by 5 days of strict mask usage when out in public. You must be fever free for 24 hours in order to injure quarantine. Is patient prescribed a controlled substance at d/c from ED?: No Referrals: Leidy Lomax MD [Primary Care Provider] - 1-2 days Time of Disposition: 21:07
== END 2022-08-06 21:30 | disposition home or self-care (01) ==
LOC: EC 17:15
DX: O98.513 Other viral diseases complicating pregnancy, third trimester (principal); U07.1 COVID-19; Z91.040 Latex allergy status; Z91.09 Other allergy status, other than to drugs and biological substances; Z3A.39 39 weeks gestation of pregnancy
CPT/HCPCS: 87635; 99283

== ENCOUNTER 2022-08-08 10:06 | Outpatient (CLI) | payer OTHER ==
[2022-08-08] MEDS: LACTATED RINGERS 1,000 ML IV SCH ×3 (10:45→12:48)
[2022-08-08] MEDS ORDERED: BUTORPHANOL 1 MG/ML 1 ML VIAL IV PRN (12:25)
[2022-08-08 14:51] VITALS: BP 135/73; PULSE 72; RESP 20; TEMP 96.8
--- NOTE | 2022-08-09 08:33 | P.PN ---
Progress Note - Text Progress Note Date: 08/09/22 (711) Anesthesia Postop day [1] Subjective: Status Post [section] with Duramorph. Patient seen and examined. [Doing well without complaint]. VAS 2 out of 10. [No nausea or vomiting. Mild pruritus tolerable.]. Denies fever. [Gross lower extremity strength intact]. . Without apparent anesthetic complications. Objective: Vital signs reviewed Heart: [Regular Rate] Lungs: [Good chest excursion] Abdomen: [Appears nondistended] Assessment: Status post [] with Duramorph postop day 1 Plan: Continue current care with your medical management. [Anticipated and the Duramorph around midnight tonight, you may see increased pain needs around this time.]
--- NOTE | 2022-08-17 13:10 | P.MSEPDOC ---
Presenting Problems - Arrival Data Date of Arrival on Unit: 08/08/22 Time of Arrival on Unit: 10:06 Mode of Transport: Wheelchair - Complaint OB-Reason for Admission/Chief Complaint: Possible Onset of Labor Comment: cx 3-5mins Medical History - Information : 3 Para: 2 Term: 2 : 0 Abortions: Spontaneous or Elective: 0 Number of Living Children: 2 - Gestational Age Gestational Age by VOLODYMYR (wks/days): 38 Weeks and 5 Days - History Complications: Prior Review of Systems - Review of Systems Constitutional: No problems Breast: No problems ENT: No problems Cardiovascular: No problems Respiratory: No problems Gastrointestinal: No problems Genitourinary: No problems Musculoskeletal: No problems Neurological: No problems Skin: No problems Vital Signs - Temperature Temperature: 96.8 F Temperature Source: Temporal Artery Scan - Pulse Pulse Oximetery Pulse Rate: 72 Pulse Assessment Method: Pulse Oximetry - Respirations Respiratory Rate: 20 Oxygen Delivery Method: Room Air O2 Sat by Pulse Oximetry: 99 - Blood Pressure Right Arm Blood Pressure: 135/73 Blood Pressure Mean: 93 Blood Pressure Source: Automatic Cuff Medical Screen Scoring - Cervical Exam Dilation (cm): 0 Effacement (%): 0 Station: -2 Membranes: Intact - Uterine Contractions Frequency From (mins): 2 Frequency To (mins): 8 Duration From (seconds): 70 Duration To (seconds): 100 Intensity: Moderate Resting: Soft to palpation - Assessment - Baby A Baseline FHR: 130 Heart Rate - NICHD Category: Category I (Normal) NST: Reactive Physician Notification - Physician Notified Physician Notified Date: 08/08/22 Physician Notified Time: 10:30 Physician: Selma Jolly New Order Received: Yes (Dr. Jolly and Dr. Christianson contacted) - Notification Comment Comment: 1030-Dr. Jolly called at office, report given on maternal complaints of contractions. every 3-5 mins since 0500, SVE closed/thick/high, pt very uncomfortable, pt also tested. positive for COVID on saturday. Orders to recheck cervix in 1hr, start an IV, and give 1L. of LR. 1219-Dr. Christianson on unit, report given, SVE remains closed after over 1 hr, cx every. 3-8mins after almost 2L of LR, pt remains uncomfortable and moaning with contractions. RN requesting that MD perform SVE. MD at bedside, tracing reviewed and SVE performed. 1415-Dr. Chrsitianson called at office, report given that stadol did not help pain much,. pt still groaning with contractions, cx currently 4-7mins apart, pt is sleepy with. stadol. SVE remains closed/thick/high. Orders to discharge pt home with instructions to. keep her next appointment. Maternal Triage Index - Maternal Triage Index Presenting for scheduled procedure w/no complaint: No - Stat/Priority 1 Stat Priority 1: No - Urgent/Priority 2 Urgent Priority 2: No - Prompt/Priority 3 Prompt Priority 3: Yes Criteria Met for Priority 3: 38 5/7wks, cx 2-8mins Disposition - Disposition OB Disposition: Discharge to home Discharge Date: 08/08/22 Discharge Time: 14:30 I agree with the RN Medical Screening Exam: Yes Case reviewed; plan agreed upon as documented in EMR&OBIX.: Yes Diagnosis: FALSE LABOR BEFORE 37 COMPLETED WEEKS OF GEST, UNSP TRI
== END 2022-08-08 14:30 | disposition home or self-care (01) ==
LOC: FBPOP 10:06
PROVIDERS: ATTEND Obstetrics & Gynecology
DX: O47.03 False labor before 37 completed weeks of gestation, third trimester (principal); Z3A.37 37 weeks gestation of pregnancy
CPT/HCPCS: 59025; 96361; 96367; 96374; G0463; J0595; 99214

== ENCOUNTER 2022-08-08 20:00 | Inpatient (IN) | payer OTHER ==
[2022-08-08] MEDS ORDERED: BUTORPHANOL 1 MG/ML 1 ML VIAL IV PRN (20:35)
[2022-08-08] MEDS ORDERED: LACTATED RINGERS 1,000 ML IV ONE (20:36)
[2022-08-08 22:37] LABS: Anisocytosis Slight; Basophils % (A) 0 %; Eosinophils % (A) 0 %; HGB 13.2 gm/dL (11.4-16.0); Hypochromasia Slight; Lymphocytes # (A) 0.7 k/uL (1.0-4.8); Lymphocytes % (A) 7 %; MCH 28.3 pg (25.0-35.0); MCHC 32.3 g/dL (31.0-37.0); MCV 87.6 fL (80.0-100.0); Mean Platelet Volume 8.3; Monocytes # (A) 0.4 k/uL (0-1.0); Monocytes % (A) 3 %; Neutrophils # (A) 9.8 k/uL (1.3-7.7); Neutrophils % (A) 89 %; Platelet Count 255 k/uL (150-450); RBC 4.69 m/uL (3.80-5.40); RDW 16.6 % (11.5-15.5); WBC 11.1 k/uL (3.8-10.6)
[2022-08-08] MEDS ORDERED: CITRIC ACID-SODIUM CITRATE 15 ML CUP PO ONE (22:37)
[2022-08-08] MEDS ORDERED: ONDANSETRON 4 MG/2 ML VIAL ONE (23:03)
[2022-08-08] MEDS ORDERED: OXYTOCIN 30 UNITS/500 ML NS BAG IV ONE (23:03)
[2022-08-08] MEDS ORDERED: KETOROLAC 15 MG/ML 1 ML VIAL ONE (23:03)
[2022-08-08] MEDS ORDERED: MORPHINE SULFATE (PF) 0.3 MG/0.3 ML SYR ONE (23:03)
[2022-08-09] MEDS ORDERED: SIMETHICONE 80 MG CHEWABLE PO PRN (00:10)
[2022-08-09] MEDS ORDERED: METOCLOPRAMIDE 5 MG/ML 2 ML VIAL IVP PRN (00:10)
[2022-08-09] MEDS ORDERED: diphenhydrAMINE 50 MG CAP PO PRN (00:10)
[2022-08-09] MEDS ORDERED: ZOLPIDEM 5 MG TAB PO PRN (00:10)
[2022-08-09] MEDS ORDERED: LANOLIN CREAM 5 GM TUBE TOPICAL PRN (00:10)
[2022-08-09] MEDS ORDERED: diphenhydrAMINE 25 MG CAP PO PRN (00:10)
[2022-08-09] MEDS ORDERED: NALOXONE 0.4 MG/ML 1 ML VIAL IV PRN (00:10)
[2022-08-09] MEDS ORDERED: diphenhydrAMINE 50 MG/ML 1 ML VIAL IVP PRN (00:10)
[2022-08-09] MEDS ORDERED: ONDANSETRON 4 MG/2 ML VIAL IVP PRN (00:10)
[2022-08-09] MEDS ORDERED: OXYTOCIN 30 UNITS/500 ML NS 30 UNIT in SALINE 1 500ML.BAG IV SCH (00:15)
--- NOTE | 2022-08-09 00:17 | P.OP ---
Date of Procedure: 08/09/22 Preoperative Diagnosis: 1. at 38 weeks 5 days 2. previous 3. labor 4. covid positive Postoperative Diagnosis: 1. at 38 weeks 5 days 2. previous 3. labor 4. covid positive Procedure(s) Performed: Repeat low transverse Anesthesia: spinal Surgeon: Felicia Christianson [employer] Treasurer #1: Brina Olmedo Estimated Blood Loss (ml): 428 IV fluids (ml): 600 Urine output (ml): 50 Pathology: other (placenta) Indications for Procedure: Please see dictated H&P for details upon indications for procedure Operative Findings: viable male. Apgars 8,9, weight 7#11oz. normal uterus, tubes and ovaries Description of Procedure: Patient was taken to the operating room where spinal anesthesia was found be adequate. She was prepped and draped in normal sterile fashion in dorsal supine position with a leftward tilt. Pfannenstiel skin incision was made the scalpel and carried through to the underlying layer of fascia with the scalpel. Fascia was incised in midline and carried bilaterally with the Rivera scissors. The superior aspect of the fascial incision was grasped with Navneet clamps elevated and the underlying rectus muscles dissected off with the Rivera's. Attention was then turned to inferior aspect of same incision which in a similar fashion was grasped tented up and the underlying rectus muscles dissected off with the Rivera's. The rectus muscles were the midline and the peritoneum was identified tented up and entered sharply with the scalpel. The incision was extended superiorly and inferiorly with good visualization of the bladder. The bladder blade was inserted and the vesicouterine peritoneum was incised the Metzenbaums then carried bilaterally and bladder flap created digitally. A low transverse incision was then made on the uterus with the scalpel. This was carried bilaterally and digital manner. 's head delivered atraumatically, nose and mouth bulb suctioned, cord clamped and cut, handed off to waiting nurses. Apgars 8,9, weight 7 lbs. 11 oz. Placenta delivered manually, intact with three-vessel cord. The uterus is exteriorized and cleared of all clots and debris. The uterine incision was closed with 0 Vicryl in a running locked fashion. Second layer of the same sutures used in imbricating fashion to obtain excellent hemostasis. Both ovaries and tubes appeared normal. The uterus was placed back into the abdomen. The peritoneum was reapproximated using 2-0 Vicryl in a running fashion. The muscles were reapproximated using 2- 0 Vicryl in interrupted fashion. The fascia was reapproximated using 0 Vicryl in a running fashion. The subcutaneous tissues closed with 3-0 Vicryl running fashion. The skin was closed christianne. Patient tolerated the procedure well, sponge and instrument counts were correct times 2 and she was taken to the recovery room in stable condition.
--- NOTE | 2022-08-09 00:36 | P.HPOB ---
History of Present Illness H&P Date: 08/08/22 Chief Complaint: labor, previous 32 year old presents at 38 weeks and 5 days complaining of contractions. Her cervix was closed when she got here she was huma every few minutes. I admitted her for observation and she then changed to have cervical dilation of 3 cm dilated, 70% effaced, -2 station. heart tones are 135 with moderate variability and reactive. She's had 2 previous sections and planned and third. Patient tested Covid + two days ago and has started Covid symptoms 5 days ago. Review of Systems All systems: negative Constitutional: Denies chills, Denies fever Eyes: denies blurred vision, denies pain Ears, nose, mouth and throat: Denies headache, Denies sore throat Cardiovascular: Denies chest pain, Denies shortness of breath Respiratory: Denies cough Gastrointestinal: Denies abdominal pain, Denies diarrhea, Denies nausea, Denies vomiting Genitourinary: Denies dysuria, Denies hematuria Musculoskeletal: Denies myalgias Integumentary: Denies pruritus, Denies rash Neurological: Denies numbness, Denies weakness Psychiatric: Denies anxiety, Denies depression Endocrine: Denies fatigue, Denies weight change Past Medical History Past Medical History: No Reported History Additional Past Medical History / Comment(s): "trichomonas", uterine cysts, vaginal abscess. History of Any Multi-Drug Resistant Organisms: None Reported Past Surgical History: Section, Hernia Repair Additional Past Surgical History / Comment(s): Fibroadenoma removed left axilla Past Anesthesia/Blood Transfusion Reactions: No Reported Reaction Additional Past Anesthesia/Blood Transfusion Reaction / Comment(s): no hx blood transfusion Smoking Status: Never smoker - Past Family History Mother Family Medical History: No Reported History Medications and Allergies Home Medications Medication Instructions Recorded Confirmed Type Vit No.179/Iron/Folic 1 tab PO DAILY 06/29/22 08/08/22 History [ Tablet] Allergies Allergy/AdvReac Type Severity Reaction Status Date / Time adhesive tape Allergy rash/hives,states Verified 08/08/22 20:16 "paper tape is ok" latex Allergy Rash/Hives Verified 08/08/22 20:16 Exam Osteopathic Statement: *. No significant issues noted on an osteopathic structural exam other than those noted in the History and Physical/Consult. Intake and Output 08/08/22 08/08/22 08/09/22 14:59 22:59 06:59 Other: Weight 105.687 kg Heart: Regular rate and rhythm Lungs: Clear to auscultation bilaterally Abdomen: Soft, nontender Extremities: Negative Homans sign Of note she did have a Bartholin's cyst abscess on her right labia that first and is leaking purulent drainage and some blood. Results Result Diagrams: 08/08/22 21:00 Abnormal Lab Results - Last 24 Hours (Table) 08/08/22 Range/Units 21:00 WBC 11.1 H (3.8-10.6) k/uL RDW 16.6 H (11.5-15.5) % Neutrophils # 9.8 H (1.3-7.7) k/uL Lymphocytes # 0.7 L (1.0-4.8) k/uL Assessment and Plan (1) COVID Current Visit: No Status: Acute Code(s): U07.1 - COVID-19 SNOMED Code(s): 634504862 (2) 38 weeks gestation of Current Visit: Yes Status: Acute Code(s): Z3A.38 - 38 WEEKS GESTATION OF SNOMED Code(s): 29514615 (3) Previous section Current Visit: Yes Status: Acute Code(s): Z98.891 - HISTORY OF UTERINE SCAR FROM PREVIOUS SURGERY SNOMED Code(s): 182807490 (4) Active labor Current Visit: Yes Status: Acute Code(s): PNZ7152 - SNOMED Code(s): 324431354 Plan: 1. Repeat low transverse
[2022-08-09] MEDS: LACTATED RINGERS 1,000 ML IV SCH ×2 (01:00→20:11)
[2022-08-09] MEDS: diphenhydrAMINE 50 MG/ML 1 ML VIAL IVP PRN ×3 (05:15→17:43)
[2022-08-09] MEDS: ACETAMINOPHEN TAB 500 MG TAB PO SCH ×3 (05:15→17:44)
[2022-08-09] MEDS: KETOROLAC 15 MG/ML 1 ML VIAL IVP SCH (08:47)
--- NOTE | 2022-08-09 09:29 | P.MSEPDOC ---
Presenting Problems - Arrival Data Date of Arrival on Unit: 08/08/22 Time of Arrival on Unit: 20:00 Mode of Transport: Ambulatory - Complaint OB-Reason for Admission/Chief Complaint: Possible Onset of Labor, Pain Comment: Patient arrived to triage previously seen today in triage, patient states that pain is 10/10 with contractions. Patient denies bleeding. Medical History - Information : 3 Para: 2 Term: 2 : 0 Abortions: Spontaneous or Elective: 0 Number of Living Children: 2 - Gestational Age Gestational Age by VOLODYMYR (wks/days): 38 Weeks and 6 Days - History Complications: Prior Review of Systems - Review of Systems Constitutional: No problems Breast: No problems ENT: No problems Cardiovascular: No problems Respiratory: No problems Gastrointestinal: No problems Genitourinary: No problems Musculoskeletal: No problems Neurological: No problems Skin: No problems Vital Signs - Temperature Temperature: 97.3 F Temperature Source: Temporal Artery Scan - Pulse Pulse Oximetery Pulse Rate: 86 Pulse Assessment Method: Automatic Cuff - Respirations Respiratory Rate: 16 Oxygen Delivery Method: Room Air - Blood Pressure Right Arm Blood Pressure: 114/59 Blood Pressure Mean: 77 Blood Pressure Source: Automatic Cuff Medical Screen Scoring - Cervical Exam Membranes: Intact - Uterine Contractions Frequency From (mins): 1 Frequency To (mins): 4 Duration From (seconds): 60 Duration To (seconds): 100 Intensity: Moderate - Assessment - Baby A Baseline FHR: 135 Heart Rate - NICHD Category: Category I (Normal) NST: Reactive Physician Notification - Physician Notified Physician Notified Date: 08/09/22 Physician Notified Time: 20:00 Physician: Felicia Christianson New Order Received: Yes - Notification Comment Comment: Dr. Christianson aware of FHR SAMEER, contractions, maternal status, cervical check. Maternal Triage Index - Non-Urgent/Priority 4 Non-Urgent Priority 4: Yes Criteria Met for Priority 4: Patient arrived to triage and stated pain is 10/10 with contraction. Disposition - Disposition OB Disposition: Observe Transferred to:: Suite 1 I agree with the RN Medical Screening Exam: Yes Case reviewed; plan agreed upon as documented in EMR&OBIX.: Yes Diagnosis: ENCOUNTER FOR FULL-TERM UNCOMPLICATED DELIVERY
--- NOTE | 2022-08-09 09:53 | P.PNOBGPC ---
Subjective - Subjective Principal diagnosis: S/P repeat low transverse cesaeran section Interval history: Patient feels well. Ambulating. No flatus or BM yet. Wants to breast-feed. Lochia is minimal. Patient reports: Reports appetite normal, Reports voiding normally, Reports pain well controlled, Reports ambulating normally : doing well Objective - Vital Signs Latest vital signs: Vital Signs Temp Pulse Resp BP Pulse Ox 08/09/22 09:28 97.3 F L 86 16 114/59 08/09/22 05:00 97.3 F L 86 16 114/59 08/09/22 01:50 74 16 113/66 08/09/22 01:35 98.6 F 65 16 110/61 96 08/09/22 01:20 59 L 15 105/61 59 L 08/09/22 01:05 73 15 99/55 100 08/09/22 00:50 98.2 F 79 16 100/56 99 08/09/22 00:35 98.2 F 64 16 111/64 100 08/09/22 00:20 66 16 110/65 100 08/09/22 00:05 98.6 F 73 16 121/65 99 08/09/22 00:00 74 16 08/08/22 23:50 78 16 121/63 100 08/08/22 20:35 98.6 F 91 16 141/80 100 Intake and Output 08/08/22 08/09/22 08/09/22 22:59 06:59 14:59 Output Total 1650 Balance -1650 Output: Urine 600 Estimated Blood Loss 428 Output, Quantitative 622 Blood Loss Other: Weight 105.687 kg - Exam Extremities: Present: normal. Absent: tenderness, edema Abdomen: Present: normal appearance, soft (+bowel sounds x 4) Incision: Present: normal, dry, intact. Absent: erythematous Uterus: Present: normal, firm. Absent: tenderness - Labs Labs: Abnormal Lab Results - Last 24 Hours (Table) 08/08/22 Range/Units 21:00 WBC 11.1 H (3.8-10.6) k/uL RDW 16.6 H (11.5-15.5) % Neutrophils # 9.8 H (1.3-7.7) k/uL Lymphocytes # 0.7 L (1.0-4.8) k/uL Assessment and Plan Assessment: S/P repeat low transverse section +COVID 19 Plan: Continue postoperative and care. Advance diet as tolerated after flatus. Ambulate.
[2022-08-09] MEDS: IBUPROFEN 600 MG TAB PO SCH ×3 (10:29→23:24)
[2022-08-09] MEDS: SENNOSIDES-DOCUSATE SODIUM 1 EACH TAB PO SCH ×2 (10:29→20:14)
[2022-08-10] MEDS: ACETAMINOPHEN TAB 500 MG TAB PO SCH ×4 (03:19→20:10)
[2022-08-10] MEDS: IBUPROFEN 600 MG TAB PO SCH ×4 (03:46→18:09)
[2022-08-10] MEDS: KETOROLAC 15 MG/ML 1 ML VIAL IVP SCH (03:47)
[2022-08-10 07:05] LABS: Anisocytosis Slight; Basophils % (A) 0 %; Eosinophils # (A) 0.1 k/uL (0-0.7); Eosinophils % (A) 1 %; HCT 33.2 % (34.0-46.0); HGB 10.3 gm/dL (11.4-16.0); Hypochromasia Slight; Lymphocytes % (A) 22 %; MCH 27.4 pg (25.0-35.0); MCHC 31.2 g/dL (31.0-37.0); MCV 87.9 fL (80.0-100.0); Mean Platelet Volume 7.9; Monocytes # (A) 0.6 k/uL (0-1.0); Monocytes % (A) 7 %; Neutrophils # (A) 6.2 k/uL (1.3-7.7); Neutrophils % (A) 68 %; Platelet Count 190 k/uL (150-450); RBC 3.77 m/uL (3.80-5.40); RDW 16.5 % (11.5-15.5); WBC 9.1 k/uL (3.8-10.6)
[2022-08-10] MEDS: SENNOSIDES-DOCUSATE SODIUM 1 EACH TAB PO SCH ×2 (08:37→20:11)
--- NOTE | 2022-08-10 08:52 | P.PNOBGPC ---
Subjective - Subjective Principal diagnosis: Status post repeat section postoperative day #2 Interval history: Patient is complaining of itching ever since surgery was completed. She states the Benadryl is not helping. She states that itchiness everywhere including the bottoms of her hands and feet. Pain is doing okay. Bleeding is minimal. She is breast-feeding. She is passing flatus but no bowel movement yet. Patient reports: Reports appetite normal, Reports voiding normally, Reports pain well controlled, Reports ambulating normally [place]: doing well, nursing well Objective - Vital Signs Latest vital signs: Vital Signs Temp Pulse Resp BP Pulse Ox 08/09/22 23:54 97.2 F L 87 16 118/75 08/09/22 20:00 97.8 F 83 16 108/66 08/09/22 15:29 96.8 F L 93 16 101/59 99 08/09/22 11:36 97.3 F L 94 16 115/83 96 08/09/22 09:28 97.3 F L 86 16 114/59 Intake and Output 08/09/22 08/10/22 08/10/22 22:59 06:59 14:59 Intake Total 1000 Output Total 300 Balance 1000 -300 Intake: IV 1000 Output: Urine 300 Other: # Voids 1 - Exam Extremities: Present: normal. Absent: tenderness, edema Abdomen: Present: normal appearance, soft (Positive bowel sounds 4). Absent: distention, tenderness Incision: Present: normal, dry, intact. Absent: erythematous Uterus: Present: normal, firm. Absent: tenderness - Labs Labs: Abnormal Lab Results - Last 24 Hours (Table) 08/10/22 Range/Units 06:31 RBC 3.77 L (3.80-5.40) m/uL Hgb 10.3 L (11.4-16.0) gm/dL Hct 33.2 L (34.0-46.0) % RDW 16.5 H (11.5-15.5) % Assessment and Plan Assessment: S/P repeat low transverse section postoperative day #2 +COVID 19 Plan: Will obtain hepatic function panel and consult anesthesia regarding patient itching. Advised patient it may also be due to the soap used on her bed sheets. Patient is unsure if she would like to go home today or tomorrow. We'll continue monitoring today.
[2022-08-10 10:38] LABS: Albumin 2.5 g/dL (3.5-5.0); Bilirubin,Unconjugated 0.2 mg/dL (0.0-1.1); Total Bilirubin 0.2 mg/dL (0.2-1.3)
[2022-08-10] MEDS ORDERED: NALBUPHINE 10 MG/ML (1 ML AMP) IV PRN (10:48)
--- NOTE | 2022-08-10 17:16 | P.MSEPDOC ---
Presenting Problems - Arrival Data Date of Arrival on Unit: 08/08/22 Time of Arrival on Unit: 20:00 Mode of Transport: Ambulatory - Complaint OB-Reason for Admission/Chief Complaint: Possible Onset of Labor, Pain Comment: Patient arrived to triage previously seen today in triage, patient states that pain is 10/10 with contractions. Patient denies bleeding. Medical History - Information : 3 Para: 2 Term: 2 : 0 Abortions: Spontaneous or Elective: 0 Number of Living Children: 2 - Gestational Age Gestational Age by VOLODYMYR (wks/days): 38 Weeks and 6 Days - History Complications: Prior Review of Systems - Review of Systems Constitutional: No problems Breast: No problems ENT: No problems Cardiovascular: No problems Respiratory: No problems Gastrointestinal: No problems Genitourinary: No problems Musculoskeletal: No problems Neurological: No problems Skin: No problems Vital Signs - Temperature Temperature: 96.2 F Temperature Source: Temporal Artery Scan - Pulse Pulse Oximetery Pulse Rate: 68 Pulse Assessment Method: Automatic Cuff - Respirations Respiratory Rate: 16 Oxygen Delivery Method: Room Air O2 Sat by Pulse Oximetry: 98 - Blood Pressure Right Arm Blood Pressure: 108/56 Blood Pressure Mean: 73 Blood Pressure Source: Automatic Cuff Medical Screen Scoring - Cervical Exam Membranes: Intact - Uterine Contractions Frequency From (mins): 1 Frequency To (mins): 4 Duration From (seconds): 60 Duration To (seconds): 100 Intensity: Moderate - Assessment - Baby A Baseline FHR: 135 Heart Rate - NICHD Category: Category I (Normal) NST: Reactive Physician Notification - Physician Notified Physician Notified Date: 08/09/22 Physician Notified Time: 20:00 Physician: Felicia Christianson New Order Received: Yes - Notification Comment Comment: Dr. Christianson aware of FHR SAMEER, contractions, maternal status, cervical check. Maternal Triage Index - Non-Urgent/Priority 4 Non-Urgent Priority 4: Yes Criteria Met for Priority 4: Patient arrived to triage and stated pain is 10/10 with contraction. Disposition - Disposition OB Disposition: Observe Transferred to:: Suite 1 I agree with the RN Medical Screening Exam: Yes Case reviewed; plan agreed upon as documented in EMR&OBIX.: Yes Diagnosis: ENCOUNTER FOR FULL-TERM UNCOMPLICATED DELIVERY
[2022-08-11] MEDS: ACETAMINOPHEN TAB 500 MG TAB PO SCH ×2 (02:02→11:52)
[2022-08-11] MEDS: IBUPROFEN 600 MG TAB PO SCH ×2 (02:03→08:29)
[2022-08-11 08:44] VITALS: BP 112/65; PULSE 89; RESP 14; TEMP 98
[2022-08-11] MEDS: SENNOSIDES-DOCUSATE SODIUM 1 EACH TAB PO SCH (09:44)
--- NOTE | 2022-08-11 10:20 | P.DS ---
Providers Date of admission: 08/08/22 22:39 Expected date of discharge: 08/11/22 Attending physician: Selma Jolly Primary care physician: Stated None - Discharge Diagnosis(es) (1) COVID Current Visit: No Status: Acute (2) 38 weeks gestation of Current Visit: Yes Status: Acute (3) Previous section Current Visit: Yes Status: Acute (4) Active labor Current Visit: Yes Status: Acute Hospital Course: Patient presented in labor at term and with Covid positive status. She underwent a repeat low transverse . course was uncomplicated. She denies nausea, vomiting, chest pain, shortness of breath or any calf pain. Patient will be discharged home postoperative day #3 in stable condition to follow-up with Dr. Jolly in one week. Plan - Discharge Summary New Discharge Prescriptions: New Ibuprofen [Motrin] 600 mg PO Q6H #60 tab oxyCODONE HCL [OxyIR] 10 mg PO Q4HR PRN #18 tab PRN Reason: Pain Scale 7 - 10 Continue Vit No.179/Iron/Folic [ Tablet] 1 tab PO DAILY Discharge Medication List Vit No.179/Iron/Folic [ Tablet] 1 tab PO DAILY 06/29/22 [History] Ibuprofen [Motrin] 600 mg PO Q6H #60 tab 08/10/22 [Rx] oxyCODONE HCL [OxyIR] 10 mg PO Q4HR PRN #18 tab 08/11/22 [Rx] Follow up Appointment(s)/Referral(s): Selma Jolly DO [Doctor of Osteopathic Medicine] - 09/19/22 4:00 pm Activity/Diet/Wound Care/Special Instructions: Instructions 1. Do not begin any exercise program for 3 weeks. 2. Do not resume sexual relations for 3 weeks or longer if uncomfortable. 3. You may take tub baths or showers at any time. 4. You may use tampons if desired after 3 weeks. 5. Keep the area of episiotomy (stitches) clean and dry. 6. If you are not nursing, wear a good fitting, supportive bra during the day and limit fluid intake for at least 1 week to prevent breast engorgement. 7. Call the office, [phone], within the next week to make appointment for your 6 week checkup if it has not already been made. 8. Report any of the following occurrences to the doctor promptly: a. Heavy, excessive bleeding b. Chills, fever c. Burning or frequency of urination d. Pain or redness and breasts if nursing e. Increasing pain or swelling in episiotomy (stitches). In addition to the above instructions, the following additional should be followed: 1. No heavy lifting or straining (exercising) until after 6 week checkup. 2. Keep abdominal incision clean and dry: You may wear a dressing if more comfortable. 3. Make office appointment for 10 days after going home or as instructed by her doctor. Discharge Disposition: HOME SELF-CARE
== END 2022-08-11 13:29 | disposition home or self-care (01) | DRG 786 ==
LOC: FBPOP 20:00 → 4FBP 21:00 → OBSVTOIN 22:39
PROVIDERS: ADMIT Obstetrics & Gynecology; ATTEND Obstetrics & Gynecology
PROC: 10D00Z1 Extraction of Products of Conception, Low, Open Approach (ICD-10-PCS; principal; 2022-08-08)
PROC: 4A0HXCZ Measurement of Products of Conception, Cardiac Rate, External Approach (ICD-10-PCS; 2022-08-08)
DX: O34.211 Maternal care for low transverse scar from previous cesarean delivery (principal); U07.1 COVID-19; O98.52 Other viral diseases complicating childbirth; O99.73 Diseases of the skin and subcutaneous tissue complicating the puerperium; L29.9 Pruritus, unspecified; Z3A.38 38 weeks gestation of pregnancy; Z37.0 Single live birth; Z87.19 Personal history of other diseases of the digestive system; Z91.040 Latex allergy status; Z91.048 Other nonmedicinal substance allergy status
CPT/HCPCS: 59025; 80076; 85025; 86850; 86900; 86901; 88307; 96360; 99213

== ENCOUNTER 2022-10-04 09:36 | Day surgery (SDC) | payer OTHER ==
[2022-10-03 12:44] VITALS: BMI 34.0
--- NOTE | 2022-10-03 19:36 | P.HPOB ---
History of Present Illness H&P Date: 10/03/22 Chief Complaint: Family planning This is a 32 y.o. female, 3, para 3, who presents for laparoscopic bilateral tubal ligation via fulgaration for family planning. She recently had a section for delivery of her last child. OB Hx: . History of 3 sections. 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 History of Bartholin's cysts with drainage. Social Hx: Single. Unemployed. Review of Systems Constitutional: Denies chills, Denies fever Eyes: denies blurred vision, denies pain Ears, nose, mouth and throat: Denies headache, Denies sore throat Cardiovascular: Denies chest pain, Denies shortness of breath Respiratory: Denies cough Gastrointestinal: Denies abdominal pain, Denies diarrhea, Denies nausea, Denies vomiting Genitourinary: Denies dysuria, Denies hematuria Menstruation: Reports menses variable Musculoskeletal: Denies myalgias Integumentary: Denies pruritus, Denies rash Neurological: Denies numbness, Denies weakness Psychiatric: Denies anxiety, Denies depression Endocrine: Denies fatigue Past Medical History Past Medical History: No Reported History Additional Past Medical History / Comment(s): "trichomonas", uterine cysts, vaginal abscess. History of Any Multi-Drug Resistant Organisms: None Reported Past Surgical History: Section (x3), Hernia Repair Additional Past Surgical History / Comment(s): Fibroadenoma removed left axilla Past Anesthesia/Blood Transfusion Reactions: No Reported Reaction Additional Past Anesthesia/Blood Transfusion Reaction / Comment(s): no hx blood transfusion Past Psychological History: No Psychological Hx Reported Smoking Status: Former smoker Past Alcohol Use History: Occasional Past Drug Use History: Marijuana - Past Family History Mother Family Medical History: No Reported History Medications and Allergies Home Medications Medication Instructions Recorded Confirmed Type No Known Home Medications 10/03/22 10/03/22 History Allergies Allergy/AdvReac Type Severity Reaction Status Date / Time adhesive tape Allergy rash/hives,states Verified 10/03/22 12:11 "paper tape is ok" latex Allergy Rash/Hives Verified 10/03/22 12:11 Exam Osteopathic Statement: *. No significant issues noted on an osteopathic structural exam other than those noted in the History and Physical/Consult. Intake and Output 10/03/22 10/03/22 10/03/22 06:59 14:59 22:59 Other: Weight 95.708 kg HEENT: within normal limits Heart: regular rate and rhythm Lungs: clear to auscultation bilaterally Abdomen: soft, non-tender Pelvic: uterus small, anteverted, non-tender, no adnexal masses or tenderness Extremities: negative Nabor's Assessment and Plan (1) Family planning Status: Acute Code(s): Z30.09 - ENCOUNTER FOR OT GENERAL CNSL AND ADVICE ON CONTRACEPTION SNOMED Code(s): 188289855 Plan: Proceed with laparoscopic bilateral tubal ligation via fulgaration. I have discussed the risks, benefits, and alternative therapies for the above- mentioned procedure and for both sedation/anesthesia as well as necessary blood products administration, if indicated, as they pertain to this patient. The patient has indicated her understanding and acceptance of the risks and procedures discussed.
[~2022-10-04 09:36] MED LIST: DEXAMETHASONE SOD PHOSPHATE 4 MG/ML 1 ML VIAL IV ONE; HYDROmorphone 0.5 MG/0.5 ML SYRINGE IVP PRN; LACTATED RINGERS 1,000 ML IV SCH; ONDANSETRON 4 MG/2 ML VIAL IVP ONE; Pre Op ABX Message 1 EACH MISC MISCELLANE ONE
[2022-10-04] MEDS ORDERED: LACTATED RINGERS 1,000 ML IV ONE (10:05)
[2022-10-04 10:15] LABS: Basophils % (A) 0 %; Eosinophils # (A) 0.1 k/uL (0-0.7); Eosinophils % (A) 3 %; HCT 39.6 % (34.0-46.0); HGB 13.1 gm/dL (11.4-16.0); Lymphocytes # (A) 1.7 k/uL (1.0-4.8); Lymphocytes % (A) 40 %; MCH 28.4 pg (25.0-35.0); MCHC 33.2 g/dL (31.0-37.0); MCV 85.6 fL (80.0-100.0); Mean Platelet Volume 7.5; Monocytes # (A) 0.3 k/uL (0-1.0); Monocytes % (A) 7 %; Neutrophils # (A) 2.1 k/uL (1.3-7.7); Neutrophils % (A) 48 %; Platelet Count 290 k/uL (150-450); RBC 4.62 m/uL (3.80-5.40); RDW 15.2 % (11.5-15.5); WBC 4.3 k/uL (3.8-10.6)
[2022-10-04] MEDS ORDERED: GLYCOPYRROLATE 0.2 MG/ML 2 ML VIAL ONE (11:15)
[2022-10-04] MEDS ORDERED: NEOSTIGMINE 1 MG/ML 10 ML VIAL ONE (11:15)
[2022-10-04] MEDS ORDERED: PROPOFOL 10 MG/ML 20 ML VIAL IV ONE (11:15)
[2022-10-04] MEDS ORDERED: KETOROLAC 15 MG/ML 1 ML VIAL ONE (11:15)
[2022-10-04] MEDS ORDERED: MIDAZOLAM 2 MG/2 ML VIAL ONE (11:15)
[2022-10-04] MEDS ORDERED: SUCCINYLCHOLINE CHLORIDE 200 MG/10 ML VIAL IV ONE (11:15)
[2022-10-04] MEDS ORDERED: LIDOCAINE 2% INJ 20 MG/ML (2 ML VIAL) ONE (11:15)
[2022-10-04] MEDS ORDERED: fentaNYL (PF) 50 MCG/ML 2 ML AMP ONE (11:15)
[2022-10-04] MEDS ORDERED: ROCURONIUM 10 MG/ML (5 ML VIAL) IV ONE (11:15)
[2022-10-04] MEDS ORDERED: BUPIVACAINE (PF) 0.25% 30 ML VIAL SQ ONE ×2 (11:39)
--- NOTE | 2022-10-04 12:09 | P.OP ---
Date of Procedure: 10/04/22 Preoperative Diagnosis: Family planning Postoperative Diagnosis: Same Procedure(s) Performed: Laparoscopic bilateral tubal ligation via fulguration Anesthesia: JONAH Surgeon: Selma Jolly Estimated Blood Loss (ml): 5 Pathology: none sent Condition: stable Disposition: same day Indications for Procedure: This is a 32 y.o. female, 3, para 3, who presents for laparoscopic bilateral tubal ligation via fulgaration for family planning. She recently had a section for delivery of her last child. Operative Findings: Normal uterus tubes and ovaries are noted. Uterus is slightly bulky. There is some adhesions to both fallopian tubes. There was a small simple cyst noted on the left ovary. Right ovary appeared normal. There was also some adhesions from the bladder to the anterior or uterine segment of the uterus. Description of Procedure: The patient is taken to the operating room where she is placed in the dorsal lithotomy position. She is prepped and draped in the normal sterile fashion. Examination is performed under anesthesia. Uterus is found to be in a anteverted position. No adnexal masses were palpated. Next a bivalve speculum was placed in the patient's vagina. An Allis clamp was used to grasp the anterior lip of the cervix. The uterus was sounded to 9 cm. The kroner uterine manipulator was then inserted through the cervix and the balloon was inflated. The Allis clamp is removed, speculum was removed, and gloves were changed and attention was turned to the abdomen. A small stab incision was made with a scalpel in the infraumbilical fold. A towel clip was placed on either side of the umbilicus for retraction. A 5 mm disposable bladeless trocar was then inserted into the peritoneal cavity under direct visualization. Once inside, pneumoperitoneum was achieved with CO2 gas. The insert was removed and the camera was placed. Intraperitoneal placement was confirmed. No bleeding was noted. Next the patient was placed in Trendelenburg position. A small stab incision was made suprapubically and a 5 mm disposable bladeless trocar was inserted into the peritoneal cavity under direct visualization. Once inside pelvic contents were inspected. Next a bipolar Kleppinger instrument was placed through the inferior trocar and the midportion of each tube was brought away from other structures and completely fulgurated on approximate 2-3 cm segment of each tube. Excellent hemostasis was noted. Pictures were taken. Pneumoperitoneum was released after the inferior trocar was removed under direct visualization. The upper trocar was then removed. The skin incisions were then closed with 4-0 Vicryl suture in a subcuticular fashion. Incisions were then injected with quarter percent Marcaine. Approximately 6.5 mL were used. Next the kroner uterine manipulator was removed. Minimal bleeding was noted. All sponge and needle counts are correct. The patient is then taken to recovery room in stable condition.
[2022-10-04 12:24] VITALS: TEMP 97
[2022-10-04] MEDS ORDERED: HYDROcodone/APAP 5-325MG 1 EACH TAB ONE (13:20)
[2022-10-04] MEDS ORDERED: HYDROcodone/APAP 5-325MG 1 EACH TAB PO ONE (13:22)
[2022-10-04 13:27] VITALS: RESP 18
[2022-10-04 13:46] VITALS: BP 136/83; PULSE 71
== END 2022-10-04 14:05 | disposition home or self-care (01) ==
LOC: OR 09:36
PROVIDERS: ATTEND Obstetrics & Gynecology
DX: Z30.2 Encounter for sterilization (principal); A59.9 Trichomoniasis, unspecified; N85.8 Other specified noninflammatory disorders of uterus; N76.4 Abscess of vulva; F10.90 Alcohol use, unspecified, uncomplicated; Z98.891 History of uterine scar from previous surgery; Z86.018 Personal history of other benign neoplasm; Z87.891 Personal history of nicotine dependence; Z91.040 Latex allergy status
CPT/HCPCS: 85025; 58670; J2250; J0330; J1100; J2710; J2405; J3010; J1885; J2704; J2001

== ENCOUNTER 2023-04-21 15:41 | Emergency (ER) | payer OTHER ==
[2023-04-21 16:09] VITALS: BP 104/70; PULSE 85; RESP 20; TEMP 98.1
[2023-04-21] MEDS ORDERED: CIPROFLOXACIN 0.3% OPHTH SOLN 5 ML BTL BOTH EYES STA (17:37)
[2023-04-21] MEDS ORDERED: POLYMYXIN B-TRIMETHOPRIM SULF (10,000-1) OPHTH DROPS 10 ML BTL BOTH EYES STA (17:42)
--- NOTE | 2023-04-21 17:44 | ED ---
Eye Problem HPI - General Chief complaint: Eye Problems Stated complaint: eye irritation Time Seen by Provider: 04/21/23 17:32 Source: patient Mode of arrival: ambulatory Limitations: no limitations - History of Present Illness Initial comments: Patient's 33-year-old female presents to the emergency Department for eye irritation. Patient states her eyes have been mildly irritated, itchy, red, watery especially in the morning for the past week. There is clear thin drainage. She denies eye pain, blurry vision. Denies any injury to the eyes. Does admit to mild nasal congestion. Denies fever and chills. Patient seeking antibiotic drops states she has a baby at home and does not want to get him sick - Related Data Previous Rx's Medication Instructions Recorded HYDROcodone/APAP 5-325MG [[place] 1 tab PO Q6HR PRN 3 Days #12 tab 10/04/22 5-325] Allergies Allergy/AdvReac Type Severity Reaction Status Date / Time adhesive tape Allergy rash/hives,states Verified 04/21/23 16:09 "paper tape is ok" latex Allergy Rash/Hives Verified 04/21/23 16:09 Review of Systems ROS Statement: Those systems with pertinent positive or pertinent negative responses have been documented in the HPI. ROS Other: All systems not noted in ROS Statement are negative. Past Medical History Past Medical History: No Reported History Additional Past Medical History / Comment(s): "trichomonas", uterine cysts, vaginal abscess. History of Any Multi-Drug Resistant Organisms: None Reported Past Surgical History: Section, Hernia Repair, Tubal Ligation Additional Past Surgical History / Comment(s): Fibroadenoma removed left axilla, cs x 3 Past Anesthesia/Blood Transfusion Reactions: No Reported Reaction Additional Past Anesthesia/Blood Transfusion Reaction / Comment(s): no hx blood transfusion Past Psychological History: No Psychological Hx Reported Smoking Status: Former smoker Past Alcohol Use History: Occasional Past Drug Use History: Marijuana - Past Family History Mother Family Medical History: No Reported History General Exam Limitations: no limitations General appearance: alert, in no apparent distress Head exam: Present: atraumatic, normocephalic, normal inspection Eye exam: Present: normal appearance, PERRL, EOMI. Absent: scleral icterus, conjunctival injection, periorbital swelling, periorbital tenderness ENT exam: Present: normal oropharynx, TM's normal bilaterally Respiratory exam: Present: normal lung sounds bilaterally. Absent: respiratory distress, wheezes, rales, rhonchi, stridor Cardiovascular Exam: Present: regular rate, normal rhythm, normal heart sounds. Absent: systolic murmur, diastolic murmur, rubs, gallop, clicks Neurological exam: Present: alert, oriented X3, CN II-XII intact Psychiatric exam: Present: normal affect, normal mood Skin exam: Present: warm, dry, intact, normal color. Absent: rash Course Vital Signs 04/21/23 16:07 Temperature 98.1 F Pulse Rate 85 Respiratory 20 Rate Blood Pressure 104/70 Medical Decision Making - Medical Decision Making Was pt. sent in by a medical professional or institution ([facility], [facility], urgent care, hospital, or senior care...) When possible be specific @ -No Did you speak to anyone other than the patient for history (EMS, parent, family, police, friend...)? What history was obtained from this source @ -No Did you review nursing and triage notes (agree or disagree)? Why? @ -I reviewed and agree with nursing and triage notes Were old charts reviewed (outside hosp., previous admission, EMS record, old EKG, old radiological studies, urgent care reports/EKG's, senior care records)? Report findings @ -No old charts were reviewed Differential Diagnosis (chest pain, altered mental status, abdominal pain women, abdominal pain men, vaginal bleeding, weakness, fever, dyspnea, syncope, headache, dizziness, GI bleed, back pain, seizure, CVA, palpatations, mental health)? @ -ALLERGIC conjunctivitis, viral conjunctivitis, bacterial conjunctivitis, EKG interpreted by me (3pts min.). @ -As above X-rays interpreted by me (1pt min.). @ -None done CT interpreted by me (1pt min.). @ -None done U/S interpreted by me (1pt. min.). @ -None done What testing was considered but not performed or refused? (CT, X-rays, U/S, labs)? Why? @ -None What meds were considered but not given or refused? Why? @ -None Did you discuss the management of the patient with other professionals (professionals i.e. [facility], [facility], lab, RT, psych nurse, clinical social work therapist, corporate concierge, teacher, corporate trust officer, immigration case manager)? Give summary @ -No Was smoking cessation discussed for >3mins.? @ -No Was critical care preformed (if so, how long)? @ -No Were there social determinants of health that impacted care today? How? (Homelessness, low income, unemployed, alcoholism, drug addiction, transportation, low edu. Level, literacy, decrease access to med. care, senior living, rehab)? @ -No Was there de-escalation of care discussed even if they declined (Discuss DNR or withdrawal of care, Hospice)? DNR status @ -No What co-morbidities impacted this encounter? (DM, HTN, Smoking, COPD, CAD, Cancer, CVA, ARF, Chemo, Hep., AIDS, mental health diagnosis, sleep apnea, morbid obesity)? @ -None Was patient admitted / discharged? Hospital course, mention meds given and route, prescriptions, significant lab abnormalities, going to OR and other pertinent info. @ -Discharged. Clinical presentation consistent with possible ALLERGIC conjunctivitis however patient very adamant that she needs bacterial coverage I'll give her antibiotic drops as requested. She will buy antihistamine drops [id number]. Undiagnosed problem with uncertain prognosis? @ -No Drug Therapy requiring intensive monitoring for toxicity (Heparin, Nitro, Insulin, Cardizem)? @ -No Were any procedures done? @ -No Diagnosis/symptom? -eye irritation Acute, or Chronic, or Acute on Chronic? @ -acute Uncomplicated (without systemic symptoms) or Complicated (systemic symptoms)? @ -uncomplicated Side effects of treatment? @ -No Exacerbation, Progression, or Severe Exacerbation? @ -No Poses a threat to life or bodily function? How? (Chest pain, [place], [place], pneumonia, PE, COPD, DKA, ARF, appy, cholecystitis, CVA, Diverticulitis, Homicidal, Suicidal, threat to staff... and all critical care pts) @ -No Dr. Whiting is my attending Disposition Clinical Impression: Irritation of both eyes Disposition: HOME SELF-CARE Condition: Good Instructions (If sedation given, give patient instructions): Conjunctivitis (ED) Additional Instructions: Apply 2 drops to both eyes every 6 hours for 7 days. Follow-up with primary care provider in one to 2 days. Return to the emergency department if you experience new, concerning, or worsening symptoms. Is patient prescribed a controlled substance at d/c from ED?: No Referrals: Leidy Lomax MD [Primary Care Provider] - 1-2 days
== END 2023-04-21 18:39 | disposition home or self-care (01) ==
LOC: EC 15:41
DX: H57.9 Unspecified disorder of eye and adnexa (principal); F12.90 Cannabis use, unspecified, uncomplicated; Z87.891 Personal history of nicotine dependence; Z91.040 Latex allergy status; Z91.09 Other allergy status, other than to drugs and biological substances
CPT/HCPCS: 99282

== ENCOUNTER 2024-03-18 20:37 | Emergency (ER) | payer OTHER ==
[2024-03-18 21:16] VITALS: RESP 18; TEMP 98.4
--- NOTE | 2024-03-18 22:00 | ED ---
General Adult HPI - General Chief complaint: Headache Stated complaint: Migraine, Blurry Vision, Nausea Time Seen by Provider: 03/18/24 21:01 Source: patient, RN notes reviewed Mode of arrival: ambulatory Limitations: no limitations - History of Present Illness Initial comments: 34-year-old female presents to the emergency department for evaluation of m igraine headache. Patient states that she has a history of migraines. She states that she had 1 last week which improved with Excedrin. She does note that prior to this she had not had a migraine in a while. She states that the pain is on the right side of her head and has gradually progressed over the past 3 hours. She does note taking an Excedrin today with no relief. She admits to nausea and photosensitivity which is typical of her migraines. Denies recent illness, fever, weakness. - Related Data Previous Rx's Medication Instructions Recorded HYDROcodone/APAP 5-325MG [[place] 1 tab PO Q6HR PRN 3 Days #12 tab 10/04/22 5-325] Allergies Allergy/AdvReac Type Severity Reaction Status Date / Time adhesive tape Allergy rash/hives,states Verified 03/18/24 20:55 "paper tape is ok" latex Allergy Rash/Hives Verified 03/18/24 20:55 Review of Systems ROS Statement: Those systems with pertinent positive or pertinent negative responses have been documented in the HPI. ROS Other: All systems not noted in ROS Statement are negative. Past Medical History Past Medical History: No Reported History Additional Past Medical History / Comment(s): "trichomonas", uterine cysts, vaginal abscess. History of Any Multi-Drug Resistant Organisms: None Reported Past Surgical History: Section, Hernia Repair, Tubal Ligation Additional Past Surgical History / Comment(s): Fibroadenoma removed left axilla, cs x 3 Past Anesthesia/Blood Transfusion Reactions: No Reported Reaction Additional Past Anesthesia/Blood Transfusion Reaction / Comment(s): no hx blood transfusion Past Psychological History: No Psychological Hx Reported Smoking Status: Former smoker Past Alcohol Use History: Occasional Past Drug Use History: Marijuana - Past Family History Mother Family Medical History: No Reported History General Exam Limitations: no limitations General appearance: alert, in no apparent distress Head exam: Present: atraumatic, normocephalic, normal inspection Eye exam: Present: normal appearance, PERRL, EOMI. Absent: scleral icterus, conjunctival injection, periorbital swelling ENT exam: Present: normal exam, mucous membranes moist, TM's normal bilaterally, normal external ear exam Neck exam: Present: normal inspection. Absent: tenderness, meningismus, lymphadenopathy Respiratory exam: Present: normal lung sounds bilaterally. Absent: respiratory distress, wheezes, rales, rhonchi, stridor Cardiovascular Exam: Present: regular rate, normal rhythm, normal heart sounds. Absent: systolic murmur, diastolic murmur, rubs, gallop, clicks GI/Abdominal exam: Present: soft. Absent: distended, tenderness, guarding, rebound, rigid Extremities exam: Present: normal inspection, full ROM, normal capillary refill. Absent: tenderness, pedal edema, joint swelling, calf tenderness Back exam: Present: normal inspection Neurological exam: Present: alert, oriented X3, CN II-XII intact, normal gait. Absent: motor sensory deficit Expanded Patient oriented to: Present: person, place, time Speech: Present: fluid speech Cranial nerves: EOM's Intact: Normal, Gag Reflex: Normal, Facial Sensation: Normal Ataxia: Absent: yes Cerebellar function: Finger to Nose: Normal, Heel to [place]: Normal Sensory exam: Upper Extremity Light Touch: Normal, Lower Extremity Light Touch: Normal Motor strength exam: RUE: 5, LUE: 5, RLE: 5, LLE: 5 Eye Response: (4) open spontaneously Motor Response: (6) obeys commands Verbal Response: (5) oriented [place] Total: 15 Psychiatric exam: Present: normal affect, normal mood Skin exam: Present: warm, dry, intact, normal color. Absent: rash Course Vital Signs 03/18/24 03/18/24 20:53 23:27 Temperature 98.4 F Pulse Rate 92 67 Respiratory 18 18 Rate Blood Pressure 127/89 104/74 O2 Sat by Pulse 99 100 Oximetry Medical Decision Making - Medical Decision Making Was pt. sent in by a medical professional or institution (, [facility], [facility], urgent care, hospital, or [facility]...) When possible be specific @ -No Did you speak to anyone other than the patient for history (EMS, parent, family, police, friend...)? What history was obtained from this source @ -No Did you review nursing and triage notes (agree or disagree)? Why? @ -I reviewed and agree with nursing and triage notes Were old charts reviewed (outside hosp., previous admission, EMS record, old EKG, old radiological studies, urgent care reports/EKG's, [facility] records)? Report findings @ -No old charts were reviewed Differential Diagnosis (chest pain, altered mental status, abdominal pain women, abdominal pain men, vaginal bleeding, weakness, fever, dyspnea, syncope, headache, dizziness, GI bleed, back pain, seizure, CVA, palpatations, mental health, musculoskeletal)? @ -Differential Headache: Migraine, tension, cluster, carbon monoxide, central venous thrombosis, pension karma temporal arteritis, acute closure glaucoma, intercranial hemorrhage, mastoiditis, sinusitis, head injury, this is not meant to be an all-inclusive list. EKG interpreted by me (3pts min.). @ -none X-rays interpreted by me (1pt min.). @ -None done CT interpreted by me (1pt min.). @ -None done U/S interpreted by me (1pt. min.). @ -None done What testing was considered but not performed or refused? (CT, X-rays, U/S, labs)? Why? @ -None What meds were considered but not given or refused? Why? @ -None Did you discuss the management of the patient with other professionals (professionals i.e. , [facility], [facility], lab, RT, psych nurse, neonatal social worker, automation control integrator, teacher, event security officer, case management coordinator)? Give summary @ -No Was smoking cessation discussed for >3mins.? @ -No Was critical care preformed (if so, how long)? @ -No Were there social determinants of health that impacted care today? How? (Homelessness, low income, unemployed, alcoholism, drug addiction, transportation, low edu. Level, literacy, decrease access to med. care, retirement, rehab)? @ -No Was there de-escalation of care discussed even if they declined (Discuss DNR or withdrawal of care, Hospice)? DNR status @ -No What co-morbidities impacted this encounter? (DM, HTN, Smoking, COPD, CAD, Cancer, CVA, ARF, Chemo, Hep., AIDS, mental health diagnosis, sleep apnea, morbid obesity)? @ -None Was patient admitted / discharged? Hospital course, mention meds given and route, prescriptions, significant lab abnormalities, going to OR and other pertinent info. @ -Discharged. Patient presented to the emergency department for evaluation of headache. States this is on the right side of her head. She does report a history of migraines and states that this feels the same. She took Excedrin at home. Patient provided migraine cocktail in the emergency department including Reglan, Toradol, Benadryl. She reports complete resolution of her symptoms including nausea and photosensitivity. Patient understanding and agreeable with discharge plan. Strict return precautions discussed. Patient stable at time of discharge. Case discussed with Dr. Whiting Undiagnosed new problem with uncertain prognosis? @ -No Drug Therapy requiring intensive monitoring for toxicity (Heparin, Nitro, Insulin, Cardizem)? @ -No Were any procedures done? @ -No Diagnosis/symptom? @ -Headache Acute, or Chronic, or Acute on Chronic? @ -acute Uncomplicated (without systemic symptoms) or Complicated (systemic symptoms)? @ -uncomplicated Side effects of treatment? @ -No Exacerbation, Progression, or Severe Exacerbation? @ -No Poses a threat to life or bodily function? How? (Chest pain, [place], [place], pneumonia, PE, COPD, DKA, ARF, appy, cholecystitis, CVA, Diverticulitis, Homicidal, Suicidal, threat to staff... and all critical care pts) @ -No Disposition Clinical Impression: Migraine headache Disposition: HOME SELF-CARE Condition: Stable Instructions (If sedation given, give patient instructions): Acute Headache (ED) Additional Instructions: Please follow up with your primary care provider. Return to the emergency department for new or worsening symptoms. Is patient prescribed a controlled substance at d/c from ED?: No Referrals: Leidy Lomax MD [Primary Care Provider] - 1-2 days
[2024-03-18] MEDS: METOCLOPRAMIDE 5 MG/ML 2 ML VIAL IVP STA (22:12)
[2024-03-18] MEDS: KETOROLAC 15 MG/ML 1 ML VIAL IVP STA (22:12)
[2024-03-18] MEDS: diphenhydrAMINE 50 MG/ML 1 ML VIAL IVP STA (22:13)
[2024-03-18 23:51] VITALS: BP 104/74; PULSE 67
== END 2024-03-18 23:36 | disposition home or self-care (01) ==
LOC: EC 20:37
DX: G43.909 Migraine, unspecified, not intractable, without status migrainosus (principal); F12.90 Cannabis use, unspecified, uncomplicated; Z91.09 Other allergy status, other than to drugs and biological substances; Z91.040 Latex allergy status; Z87.891 Personal history of nicotine dependence
CPT/HCPCS: 99283; 96374; 96375 ×2; J1200; J2765; J1885

== ENCOUNTER 2024-07-27 20:48 | Emergency (ER) | payer OTHER ==
[2024-07-27 21:22] VITALS: RESP 18; TEMP 98.2
--- NOTE | 2024-07-27 21:44 | ED ---
Female Urogenital HPI - General Chief complaint: Urogenital Stated complaint: Vaginal Cyst Time Seen by Provider: 07/27/24 21:00 Source: patient, RN notes reviewed Mode of arrival: ambulatory Limitations: no limitations - History of Present Illness Initial comments: 34-year-old female presents emergency department chief complaint of a Bartholin cyst. Patient does have a history of Bartholin cyst and states that she had 1 rupture a few days ago. Patient is concerned that this area may be infected now She denies abdominal pain, nausea, vomiting, fevers or chills. denies dysuria, hematuria, increase in urinary frequency or urgency or flank pain. Additionally, patient is requesting that she be tested for STD due to a recent unprotected sexual encounter. Patient had a tubal ligation completed few years ago and is denying chance of at this time. - Related Data Previous Rx's Medication Instructions Recorded HYDROcodone/APAP 5-325MG [[place] 1 tab PO Q6HR PRN 3 Days #12 tab 10/04/22 5-325] Amoxic-Pot Clav 875-125Mg 1 tab PO Q12HR #20 tab 07/27/24 [Augmentin 875-125] Sulfamethox-Tmp 800-160Mg [Bactrim 1 each PO Q12HR #20 tab 07/27/24 Ds] Allergies Allergy/AdvReac Type Severity Reaction Status Date / Time adhesive tape Allergy rash/hives,states Verified 07/27/24 21:22 "paper tape is ok" latex Allergy Rash/Hives Verified 07/27/24 21:22 Review of Systems ROS Statement: Those systems with pertinent positive or pertinent negative responses have been documented in the HPI. ROS Other: All systems not noted in ROS Statement are negative. Past Medical History Past Medical History: No Reported History Additional Past Medical History / Comment(s): "trichomonas", uterine cysts, vaginal abscess. History of Any Multi-Drug Resistant Organisms: None Reported Past Surgical History: Section, Hernia Repair, Tubal Ligation Additional Past Surgical History / Comment(s): Fibroadenoma removed left axilla, cs x 3 Past Anesthesia/Blood Transfusion Reactions: No Reported Reaction Additional Past Anesthesia/Blood Transfusion Reaction / Comment(s): no hx blood transfusion Past Psychological History: No Psychological Hx Reported Smoking Status: Former smoker Past Alcohol Use History: Occasional Past Drug Use History: None Reported - Past Family History Mother Family Medical History: No Reported History General Exam Limitations: no limitations General appearance: alert, in no apparent distress Head exam: Present: atraumatic, normocephalic, normal inspection Eye exam: Present: normal appearance, PERRL, EOMI. Absent: scleral icterus, conjunctival injection, periorbital swelling ENT exam: Present: normal exam, mucous membranes moist Neck exam: Present: normal inspection. Absent: tenderness, meningismus, lymphadenopathy Respiratory exam: Present: normal lung sounds bilaterally. Absent: respiratory distress, wheezes, rales, rhonchi, stridor Cardiovascular Exam: Present: regular rate, normal rhythm, normal heart sounds. Absent: systolic murmur, diastolic murmur, rubs, gallop, clicks GI/Abdominal exam: Present: soft, normal bowel sounds. Absent: distended, tenderness, guarding, rebound, rigid External exam: Present: normal external exam Speculum exam: Present: normal speculum exam, vaginal bleeding (patient on menses), other (right sided bartholin cyst, no active drainage) Extremities exam: Present: normal inspection, full ROM, normal capillary refill. Absent: tenderness, pedal edema, joint swelling, calf tenderness Back exam: Present: normal inspection Neurological exam: Present: alert, oriented X3, CN II-XII intact Course Vital Signs 07/27/24 07/27/24 21:18 23:07 Temperature 98.2 F Pulse Rate 94 86 Respiratory 18 18 Rate Blood Pressure 120/85 114/80 O2 Sat by Pulse 96 99 Oximetry Medical Decision Making - Medical Decision Making Was pt. sent in by a medical professional or institution (, PA, STENOCAPTIONER, urgent care, hospital, or [facility]...) When possible be specific @ -No Did you speak to anyone other than the patient for history (EMS, parent, family, police, friend...)? What history was obtained from this source @ -No Did you review nursing and triage notes (agree or disagree)? Why? @ -I reviewed and agree with nursing and triage notes Were old charts reviewed (outside hosp., previous admission, EMS record, old EKG, old radiological studies, urgent care reports/EKG's, [facility] records)? Report findings @ -No old charts were reviewed Differential Diagnosis (chest pain, altered mental status, abdominal pain women, abdominal pain men, vaginal bleeding, weakness, fever, dyspnea, syncope, headache, dizziness, GI bleed, back pain, seizure, CVA, palpatations, mental health, musculoskeletal)? @ -Differential Vaginal Bleeding: Spontaneous , threatened , molar , ectopic , bloody show, incompetent cervix, abruptioplacenta, placenta previa, uterine rupture, dysfunctional uterine bleeding, hemorrhage, uterine fibroids, this is not meant to be an all-inclusive list. EKG interpreted by me (3pts min.). @ -As above X-rays interpreted by me (1pt min.). @ -None done CT interpreted by me (1pt min.). @ -None done U/S interpreted by me (1pt. min.). @ -None done What testing was considered but not performed or refused? (CT, X-rays, U/S, labs)? Why? @ -None What meds were considered but not given or refused? Why? @ -None Did you discuss the management of the patient with other professionals (professionals i.e. , PA, STENOCAPTIONER, lab, RT, psych nurse, social problems specialist, internet designer, teacher, chief science officer, insurance case manager)? Give summary @ -No Was smoking cessation discussed for >3mins.? @ -No Was critical care preformed (if so, how long)? @ -No Were there social determinants of health that impacted care today? How? (Homelessness, low income, unemployed, alcoholism, drug addiction, transportation, low edu. Level, literacy, decrease access to med. care, [facility], rehab)? @ -No Was there de-escalation of care discussed even if they declined (Discuss DNR or withdrawal of care, Hospice)? DNR status @ -No What co-morbidities impacted this encounter? (DM, HTN, Smoking, COPD, CAD, Cancer, CVA, ARF, Chemo, Hep., AIDS, mental health diagnosis, sleep apnea, morbid obesity)? @ -None Was patient admitted / discharged? Hospital course, mention meds given and route, prescriptions, significant lab abnormalities, going to OR and other pertinent info. @ -Discharge. 34-year-old female with Bartholin cyst. Examination patient noted to have a known cyst of the right labia, no signs of active drainage or purulence. Area is mildly tender to the touch. Due to patient's concern for potential STD exposure she is prophylactically treated with Rocephin and azithromycin. Urine is negative for infection, red blood cells consistent with menses. Patient is provided prescription for Bactrim and Augmentin to cover for potential infection for Bartholin cyst. Recommend she continue symptomatic treatment at home using sitz bath's and follow schedule up with her ground crewman aircraft support for further evaluation. Urine sent for gonorrhea and chlamydia which is an outpatient test. All questions answered at bedside answered return power discussed with the patient she is verbalized understanding. Discussed with Dr. Whiting. Undiagnosed new problem with uncertain prognosis? @ -No Drug Therapy requiring intensive monitoring for toxicity (Heparin, Nitro, Insulin, Cardizem)? @ -No Were any procedures done? @ -No Diagnosis/symptom? @ -bartholin cyst, potential STI exposure Acute, or Chronic, or Acute on Chronic? @ -Acute Uncomplicated (without systemic symptoms) or Complicated (systemic symptoms)? @ -uncomplicated Side effects of treatment? @ -No Exacerbation, Progression, or Severe Exacerbation? @ -No Poses a threat to life or bodily function? How? (Chest pain, [place], MA, pneumonia, PE, COPD, DKA, ARF, appy, cholecystitis, CVA, Diverticulitis, Homicidal, Suicidal, threat to staff... and all critical care pts) @ -No - Lab Data Lab Results 07/27/24 Range/Units 21:48 Urine Color Light Yellow Urine Appearance Clear (Clear) Urine pH 5.5 (5.0-8.0) Ur Specific [place] 1.028 (1.001-1.035) Urine Protein Negative (Negative) Urine Glucose (UA) Negative (Negative) Urine Ketones Negative (Negative) Urine Blood Large H (Negative) Urine Nitrite Negative (Negative) Urine Bilirubin Negative (Negative) Urine Urobilinogen <2.0 (<2.0) mg/dL Ur Leukocyte Esterase Negative (Negative) Urine RBC 2 (0-5) /hpf Urine WBC 1 (0-5) /hpf Ur Squamous Epith Cells 8 H (0-4) /hpf Urine Mucus Moderate H (None) /hpf Disposition Clinical Impression: Potential exposure to STD, Bartholin's cyst Disposition: HOME SELF-CARE Condition: Good Instructions (If sedation given, give patient instructions): Bartholin Cyst (ED) Additional Instructions: Return to the emergency department for any new or worsening symptoms. Complete full course of both antibiotics as prescribed. Recommend you continue sitz bath's at home and abstain from intercourse. Follow-up with ground crewman aircraft support this week for further evaluation. Prescriptions: Amoxic-Pot Clav 875-125Mg [Augmentin 875-125] 1 tab PO Q12HR #20 tab Sulfamethox-Tmp 800-160Mg [Bactrim Ds] 1 each PO Q12HR #20 tab Is patient prescribed a controlled substance at d/c from ED?: No Referrals: Leidy Lomax MD [Primary Care Provider] - 1-2 days Time of Disposition: 22:49
[2024-07-27 22:44] LABS: Appearance,Urine Clear (Clear); Bilirubin,Urine Negative (Negative); Blood,Urine Large (Negative); Color,Urine Light Yellow; Glucose,Urine (UA) Negative (Negative); Ketones,Urine Negative (Negative); Leukocyte Esterase,Urine Negative (Negative); Mucus,Urine Moderate /hpf; Nitrite,Urine Negative (Negative); PH, Urine 5.5 (5.0-8.0); Protein,Urine Negative (Negative); RBC,Urine 2 /hpf (0-5); Specific Gravity,Urine 1.028 (1.001-1.035); Squamous Epithelial Cell,Urine 8 /hpf (0-4); Urobilinogen,Urine <2.0 mg/dL (<2.0); WBC,Urine 1 /hpf (0-5)
[2024-07-27] MEDS: cefTRIAXone 1,000 MG VIAL (IM USE) IM STA (22:55)
[2024-07-27] MEDS: AZITHROMYCIN 500 MG TAB PO STA (22:55)
[2024-07-27 23:09] VITALS: BP 114/80; PULSE 86
[2024-07-29 14:57] LABS: C. trachomatis,PCR Negative (Negative); N. gonorrhoeae,PCR Negative (Negative)
== END 2024-07-27 23:07 | disposition home or self-care (01) ==
LOC: EC 20:48
DX: N75.0 Cyst of Bartholin's gland (principal); Z20.2 Contact with and (suspected) exposure to infections with a predominantly sexual mode of transmission; Z91.040 Latex allergy status; Z91.09 Other allergy status, other than to drugs and biological substances; Z87.891 Personal history of nicotine dependence
CPT/HCPCS: 81001; 87491; 87591; 99283; 96372; J0696